=== PATIENT | male | born 1940 | race Caucasian/White ===

== ENCOUNTER 2017-06-10 14:59 | Observation (INO) ==
--- NOTE | 2017-06-10 15:28 | Emergency Department Note ---
Disposition Clinical Impression: Palpitations Chest pain Qualifiers: Chest pain type: unspecified Qualified Code(s): R07.9 - Chest pain, unspecified Disposition: Admitted As Inpatient Condition: Fair Time of Disposition: 16:42 Chest Pain HPI - General Chief Complaint: ED Arrhythmia/Palpitations Stated Complaint: fast HR Time Seen by Provider: 06/10/17 15:25 Source: patient Mode of arrival: ambulatory Limitations: no limitations Vital Signs Reviewed: Yes Nursing Notes Reviewed: Yes - History of Present Illness HPI Narrative: 77-year-old whose had chest pressure and episodes of feeling like he's going to pass out. This being on on for the last several days. Dates he had a rapid heartbeat earlier. Heart rate on arrival was 67. Pt complaint: chest pain Onset (ago): day(s) Duration: intermittent Onset: during rest Severity scale (1-10): 0 Quality: tightness Improves with: nothing Worsens with: nothing Treatments prior to arrival chest pain: none - Related Data Home Medications Medication Instructions Recorded Confirmed Aspirin Enteric Coated [Aspirin EC] 81 mg PO DAILY 03/19/16 06/10/17 Atorvastatin [Lipitor] 40 mg PO HS 03/19/16 06/10/17 Clopidogrel [Plavix] 75 mg PO DAILY 03/19/16 06/10/17 Insulin NPH Hum/Reg Insulin Hm 12 - 18 unit SQ BID 03/19/16 06/10/17 [Novolin 70-30 100 Unit/ml Vial] Isosorbide MONOnitrate [Isosorbide 120 mg PO DAILY 03/19/16 06/10/17 Mononitrate ER] Nitroglycerin [Nitrostat] 0.4 mg SL Q5M PRN 03/19/16 06/10/17 Tamsulosin [Flomax] 0.4 mg PO DAILY 03/19/16 06/10/17 Losartan Potassium [Cozaar] 50 mg PO DAILY 06/10/17 06/10/17 Metoprolol [Lopressor] 50 mg PO BID 06/10/17 06/10/17 Pantoprazole Sodium [Protonix] 40 mg PO DAILY 06/10/17 06/10/17 Previous Rx's Medication Instructions Recorded Ranolazine [Ranexa] 500 mg PO BID #60 tab.er.12h 03/20/16 Allergies Allergy/AdvReac Type Severity Reaction Status Date / Time lisinopril AdvReac Cough Verified 03/19/16 15:11 All systems ED: reviewed and negative except as stated. Constitutional: Denies: fever, chills, weakness, weight change Eyes: Denies: eye pain, eye discharge, vision change ENT ED: Denies: ear pain, throat pain, dental pain, hearing loss, epistaxis, congestion, dysphagia Cardiovascular: Reports: chest pain, palpitations. Denies: dyspnea on exertion , edema, syncope Respiratory: Denies: cough, dyspnea, wheezes, hemoptysis, stridor Gastrointestinal: Denies: abdominal pain, nausea, vomiting, diarrhea, constipation, hematemesis, melena, hematochezia Genitourinary: Denies: urgency, dysuria, frequency, hematuria Musculoskeletal: Denies: back pain, neck pain, arthralgia, myalgia Integumentary: Denies: rash, abrasion, lesions Neurological: Denies: headache, weakness, numbness, paresthesias, confusion, abnormal gait, vertigo Psychiatric: Denies: anxiety, depression, suicidal thoughts, homicidal thoughts , auditory hallucinations, visual hallucinations Endocrine: Denies: fatigue Hematological/Lymphatic: Denies: easy bleeding, easy bruising Allergic/Immunologic: Denies: facial swelling, urticaria Chest Pain PMH - Past Medical History Medical history: Reports: diabetes, hyperlipidemia, hypertension, myocardial infarction, other Surgical history: Reports: cataract Psychiatric history: Reports: no psych history - Social History Smoking Status: Never smoker Alcohol use: Reports: none Drug use: Reports: none Physical Exam - General Limitations: no limitations General appearance: alert, in no apparent distress - Head Head exam: atraumatic, normocephalic, normal inspection - Eye Eye exam: Present: normal appearance, PERRL, EOMI - ENT ENT exam: normal exam, normal oropharynx, mucous membranes moist - Neck Neck exam: Present: normal inspection, full ROM, trachea midline - Chest Chest inspection: Present: normal inspection, symmetric chest wall rise - Respiratory Respiratory exam: Present: normal lung sounds bilaterally - Cardiovascular Cardiovascular exam: Present: regular rate, normal rhythm, normal heart sounds - Abdominal Exam Abdominal exam: Present: soft, Non-Tender. Absent: tenderness, distention, guarding, rebound, rigidity - Extremities Exam Extremities exam: Present: normal inspection, full ROM. Absent: tenderness, pedal edema - Expanded Lower Extremity Exam Neurovascular/Tendon exam: Absent: motor deficit, sensory deficit, tendon deficit Gait: not tested/not observed - Back Exam Back exam: Present: normal inspection, full ROM. Absent: tenderness - Neurological Exam Neurological exam: Present: alert, oriented X3 - Psychiatric Psychiatric exam: Present: normal affect, normal mood - Skin Skin exam: Present: warm, dry, intact, normal color Course - Reevaluation(s) Reevaluation #1: 77-year-old with a history of previous bypass surgery comes in complaining of some episodes of the as he describes a rapid heartbeat near syncope saws family doctor who did discuss case with cardiology who felt patient should come in and be admitted. He may be having an arrhythmia causing his symptoms versus he does have known coronary artery disease. He currently is not having chest pain just feels very tired. Time: 16:40 Reevaluation #2: 77-year-old who developed worsening chest pain. A repeat EKG was obtained which is unchanged from EKG obtained earlier. No acute ST segment elevation. Time: 17:59 - Consultations Consultation #1: Discussed with Shawn Cesar, admit consult cardiology. Time: 16:54 Vital Signs Temperature 98.2 F 06/10/17 15:10 Pulse Rate 67 06/10/17 15:10 Respiratory Rate 18 06/10/17 15:10 Blood Pressure 180/70 06/10/17 15:10 O2 Sat by Pulse Oximetry 98 06/10/17 15:10 Temperature 97.8 F 06/10/17 22:35 Pulse Rate 70 06/10/17 22:35 Respiratory Rate 16 06/10/17 22:35 Blood Pressure 154/56 06/10/17 22:35 O2 Sat by Pulse Oximetry 96 06/10/17 22:35 Oxygen Delivery Oxygen Delivery Room Air Chest Pain - Lab Data Lab results reviewed: Yes I reviewed the patient's lab results. Result diagrams: 06/10/17 15:45 06/10/17 15:45 Lab Results 06/10/17 06/10/17 06/10/17 Range/Units 15:45 15:45 15:45 WBC 5.4 (4.3-11.1) K/mcL RBC 4.88 (4.19-5.50) M/mcL Hgb 15.4 (12.9-16.9) g/dL Hct 43.1 (37.5-50.1) % MCV 88.3 (83.0-100.0) fL MCH 31.6 (28.0-33.3) pg MCHC 35.7 H (31.6-35.5) g/dL RDW 11.8 (11.5-14.5) % Plt Count 224 (140-400) K/mcL MPV 8.5 L (9.4-12.4) fL Immature Gran % 0.4 (0-4) % Seg Neutrophils % 68.2 % Lymphocytes % 15.7 % Monocytes % 12.9 % Eosinophils % 2.4 % Basophils % 0.4 % Neutrophils # 3.7 (1.6-8.9) K/mcL Lymphocytes # 0.8 (0.6-4.6) K/mcL Monocytes # 0.7 (0.0-1.3) K/mcL Eosinophils # 0.1 (0.0-0.6) K/mcL Basophils # 0.0 (0.0-0.2) K/mcL Sodium 136 (136-145) mEq/L Potassium 4.4 (3.5-4.5) mEq/L Chloride 102 (98-109) mEq/L Carbon Dioxide 25 (19-29) mEq/L BUN 25 (8-26) mg/dL Creatinine 1.15 (0.72-1.25) mg/dL Est GFR ( Amer) > 60 (> 60) Est GFR (Non-Af Amer) > 60 (> 60) BUN/Creatinine Ratio 22 (6-26) Glucose 222 H (70-99) mg/dL Calculated Osmolality 293 (280-300) Calcium 9.2 (8.6-10.8) mg/dL Troponin I 0.01 (0-0.03) ng/mL - Radiology Data Radiology results reviewed: Yes I reviewed the patient's radiology results. Chest X-Ray 06/10/17 15:27 IMPRESSION: No radiographic evidence of acute cardiopulmonary disease. D/ / Renato Frazier MD / Renato Frazier MD Interpreting Provider: Renato Frazier MD - EKG Data EKG attestation: Yes I reviewed and interpreted this EKG. EKG shows normal: sinus rhythm Rate: normal Rhythm: NSR Interpretation: no acute changes, nonspecific ST-T wave changes Heart Score - Score History: Moderately Suspicious EKG: Non Specific repolarisation Disturbance Age: Greater than 65 Risk Factors: Equal/Greater than 3 risk factor or history of atherosclerotic disease Troponin: Less than normal limit HEART Score Total: 6
[2017-06-10 15:58] LABS: Basophils % 0.4 %; Eosinophils # 0.1 K/mcL (0.0-0.6); Eosinophils % 2.4 %; Hematocrit 43.1 % (37.5-50.1); Hemoglobin 15.4 g/dL (12.9-16.9); Immature Granulocytes % 0.4 % (0-4); Lymphocytes # 0.8 K/mcL (0.6-4.6); Lymphocytes % 15.7 %; Mean Corpuscular HGB Conc 35.7 g/dL (31.6-35.5); Mean Corpuscular Hemoglobin 31.6 pg (28.0-33.3); Mean Corpuscular Volume 88.3 fL (83.0-100.0); Mean Platelet Volume 8.5 fL (9.4-12.4); Monocytes # 0.7 K/mcL (0.0-1.3); Monocytes % 12.9 %; Neutrophils # 3.7 K/mcL (1.6-8.9); Platelet Count 224 K/mcL (140-400); Red Blood Count 4.88 M/mcL (4.19-5.50); Red Cell Distribution Width 11.8 % (11.5-14.5); Segmented Neutrophils % 68.2 %
[2017-06-10 16:12] LABS: BUN/Creatinine Ratio 22 (6-26); Blood Urea Nitrogen 25 mg/dL (8-26); Calcium 9.2 mg/dL (8.6-10.8); Carbon Dioxide 25 mEq/L (19-29); Chloride 102 mEq/L (98-109); Glucose 222 mg/dL (70-99); Osmolality,Calculated 293 (280-300); Potassium 4.4 mEq/L (3.5-4.5); Sodium 136 mEq/L (136-145); eGFR For African Americans > 60 (> 60); eGFR For Non-African Americans > 60 (> 60)
[2017-06-10] MEDS ORDERED: Ondansetron 4 MG/2 ML VIAL IVP PRN (20:01)
[2017-06-10] MEDS ORDERED: Naloxone 0.4 MG/ML INJ IVP PRN (20:01)
[2017-06-10] MEDS ORDERED: Nitroglycerin 0.4 MG TAB.SUBL SL PRN (20:05)
[2017-06-10] MEDS ORDERED: D5% in Water 1,000 ML IVC PRN (20:06)
[2017-06-10] MEDS ORDERED: *HR* Dextrose 50 % in Water (Syg) 50 ML SYRINGE IVP PRN (20:06)
[2017-06-10] MEDS ORDERED: Dextrose Gel 15 GM PO PRN ×2 (20:06)
[2017-06-10] MEDS: Ranolazine 500 MG TAB.ER.12H PO SCH (21:11)
[2017-06-10] MEDS: Acetaminophen 325 MG TABLET PO PRN (21:11)
[2017-06-10] MEDS: Insulin LISPRO 300 UNITS/3 ML VIAL SQ SCH (21:12)
[2017-06-10] MEDS: Insulin DETEMIR 100 UNIT/ML X5UNITS SQ SCH (21:13)
--- NOTE | 2017-06-10 22:24 | Internal Med History&Physical ---
Date of Encounter: 06/11/17 Time of Encounter: 22:24 Assessment and Plan (1) Chest pain Current visit: Yes Status: Acute Patient had episode of palpitations today as well as midsternal non-range has pressure which relieved on its own. He did feel as if he was going to pass out. He does have a past cardiac history including CABG and multiple PCI's with 3 stents. Last heart catheter was in 2015. He had a nuclear stress test which showed no ischemia. First cardiac troponin was 0.01 which we will continue to trend 2 continuous cardiac monitoring 3 continue with aspirin and statin Renexa beta marilyn and nitrates 4 we will consult cardiology 5 check d-dimer Qualifiers: Chest pain type: unspecified Qualified Code(s): R07.9 - Chest pain, unspecified (2) Diabetes mellitus Current visit: Yes Status: Acute Accu-Cheks before meals at bedtime with sliding scale insulin as well as basal Diabetic diet Qualifiers: Diabetes mellitus type: type 2 Diabetes mellitus complication status: without complication Diabetes mellitus mcfp insulin use: with mcfp use Qualified Code(s): E11.9 - Type 2 diabetes mellitus without complications ; Z79.4 - care home (current) use of insulin; Z79.4 - care home (current) use of insulin; 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 He did have a Holter monitor which revealed baseline rhythm of normal sinus occasional PVCs frequent PACs several short runs of PAT's. He did have a nuclear stress 2069 with no ischemia. We will obtain cardiac echo 2 continue with metoprolol at 50 mg twice a day 3 consult cardiology 4 continuous cardiac monitoring 5 we will check orthostatic vital signs 6 TSH 7 cortisol level in a.m. (4) CAD (coronary artery disease) Current visit: No Status: Chronic History of coronary artery disease CABG -multiple PCI's with most recent 2015. Nuclear stress 02/2017 for ischemia We will continue with cardiac monitoring 2 continue with aspirin statin and beta marilyn as well as Ranexa and nitrates Qualifiers: Coronary Disease-Associated Artery/Lesion type: bypass graft [place] vs. transplanted heart: [place] heart Associated angina: with stable angina Qualified Code(s): I25.708 - Atherosclerosis of coronary artery bypass graft(s) , unspecified, with other forms of angina pectoris (5) DVT prophylaxis Current visit: Yes Status: Acute Lovenox subcutaneous Internal Medicine - H&P: HPI Chief complaint: Palpitations lightheaded Admitted From: Emergency Dept Plans for Post Hospital Care: Home History of present illness: Mr. Musa is a 77 year old male past medical history of diabetes hyperlipidemia hypertension and CA with CABG multiple PCI's 3 stents most recent PCI 2015 TBI history subdural hematoma 2011. According to the patient since February he has been experiencing intermittent palpitations associated with mild tightness discomfort followed by profound fatigue. These episodes occur sporadically without any aggravating factors and occurred at rest or with exertion. The episodes normally lasts a couple of minutes and they have been occurring nearly daily. He did see his primary care physician who referred him to cardiology and he was placed on a 48 hour Holter monitor. At that time Holter monitor revealed baseline rhythm normal sinus frequent PACs occasional PVCs several short runs of PAT. He underwent nuclear stress 02/2017 which showed no ischemia. He saw cardiology on 05/31/2017 at that time his metoprolol was increased to 50 mg twice a day. Apparently today he had gotten out of the shower was attempting to shave it had episode of palpitations that he described as rapid heart rate felt as if his heart was going to beat out of his chest he became lightheaded and had midsternal nonradiating chest pressure and felt as if he was going to pass out. He saw his PCP today and described symptoms he experienced. His primary care physician discuss this episode with Dr. Ch cardiology who advised to go to the ER for evaluation. ER workup was essentially negative he was admitted for further workup and evaluation. Presently patient is hemodynamically stable he does complain of some occasional chest pressure he sinus rhythm on the monitor with occasional PAC. I reviewed this case with Dr. Acuna who agrees with plan Past Med Surg Social Fam HX - Past Medical History Medical history: diabetes, hyperlipidemia, hypertension, myocardial infarction Psychiatric history: no psych history - Past Surgical History Surgical History: cataract - Social History Smoking Status: Never smoker Smokeless Tobacco Status: No Alcohol use: none Drug use: none - Family History Father Living Status: Age at : 50 Cause of : CA Hx Family Cardiac Disorders: Yes Internal Medicine - H&P: Meds Aspirin Enteric Coated [Aspirin EC] 81 mg PO DAILY 03/19/16 [History] Atorvastatin [Lipitor] 40 mg PO HS 03/19/16 [History] Clopidogrel [Plavix] 75 mg PO DAILY 03/19/16 [History] Insulin NPH Hum/Reg Insulin Hm [Novolin 70-30 100 Unit/ml Vial] 12 - 18 unit SQ BID 03/19/16 [History] Isosorbide MONOnitrate [Isosorbide Mononitrate ER] 120 mg PO DAILY 03/19/16 [ History] Nitroglycerin [Nitrostat] 0.4 mg SL Q5M PRN 03/19/16 [History] Tamsulosin [Flomax] 0.4 mg PO DAILY 03/19/16 [History] Ranolazine [Ranexa] 500 mg PO BID #60 tab.er.12h 03/20/16 [Rx] Losartan Potassium [Cozaar] 50 mg PO DAILY 06/10/17 [History] Metoprolol [Lopressor] 50 mg PO BID 06/10/17 [History] Pantoprazole Sodium [Protonix] 40 mg PO DAILY 06/10/17 [History] 3 Allergy/AdvReac Type Severity Reaction Status Date / Time lisinopril AdvReac Cough Verified 03/19/16 15:11 All Systems PM: A 10-system review of systems was performed and is negative for pertinent findings except as documented above in the HPI. - Constitutional Constitutional: no chills, no fever(s), no night sweats - EENT Eyes: no change in vision, no discharge, no pain, no photophobia Nose, mouth and throat: no dysphagia, no nasal discharge, no neck pain, no sore throat - Cardiovascular Cardiovascular ROS IM: chest pain, lightheadedness, palpitations, no diaphoresis , no dyspnea, no syncope - Respiratory Respiratory: no cough, no dyspnea, no wheezing, no excessive phlegm production - Gastrointestinal Gastrointestinal: no abdominal pain, no diarrhea, no hematemesis, no hematochezia, no melena, no nausea, no vomiting - Musculoskeletal Musculoskeletal ROS IM: no numbness, no tingling - Integumentary Integumentary IM: no rash, no unusual bruising - Neurological Neurological ROS: no confusion, no convulsions, no focal weakness, no numbness, no tingling, no tremor(s) - Hematologic/Lymphatic Hematologic/Lymphatic: no easy bruising - Constitutional Vitals: Temp Pulse Resp BP Pulse Ox 97.8 F 70 16 180/91 97 06/10/17 19:11 06/10/17 19:11 06/10/17 19:11 06/10/17 19:11 06/10/17 22:07 General appearance: Present: A&O X 3, answers questions appropriately - Head Head exam: Present: atraumatic, normocephalic - Eye Eye exam: Present: PERRL, conjuntiva pink, sclera anicteric Pupils: Present: PERRL - Neck Neck exam general surgery: Present: supple, trachea midline. Absent: lymphadenopathy - Respiratory Respiratory exam: Present: CTAB. Absent: accessory muscle use, rales, rhonchi, wheezes - Cardiovascular Cardiovascular exam: Present: irregular rhythm, +S1, +S2. Absent: diastolic murmur, gallop, rubs, systolic murmur - GI/Abdominal GI/Abdominal exam: Present: normal bowel sounds, soft, no peritoneal signs. Absent: distended, tenderness - Extremities Exam Extremities exam: Present: warm, radial pulses palpable and symmetrical. Absent : calf tenderness, cyanotic, pedal edema - Neurological Exam Neurological exam: Present: CN II-XII intact, oriented X3, no focal deficits. Absent: pronater drift, facial droop, speech deficit - Skin Skin exam: Present: dry, intact Internal Med - H&P Results - Labs CBC & Chem 7: 06/10/17 15:45 06/10/17 15:45 Labs: Cardiac Enzymes 06/10/17 Range/Units 21:07 Troponin I 0.00 (0-0.03) ng/mL - EKG Data EKG shows normal: sinus rhythm - EKG Data Prior EKG available for review: yes When compared to previous EKG: there is no significant change - Diagnostic Studies Other Images Additional comments: Chest X-Ray 06/10/17 15:27 IMPRESSION: No radiographic evidence of acute cardiopulmonary disease. D/ / Renato Frazier MD / Renato Frazier MD Interpreting Provider: Renato Frazier MD
--- NOTE | 2017-06-11 01:15 | Event Note ---
Date of Encounter: 06/11/17 Time of Encounter: 01:10 Patient seen and exmained with nurse practitioner. Patient presents with pre- syncope which s not a new complain for him. Symptoms suggestive of arrhythmia versus orthostasis. He had Holter monitor before that did not show evidence to explain his symptoms. May benefit from getting a 30 day event monitor. will get d-dimer with the morning labs. Check orthostatic vital signs. Check cortisol level in a.m. Check echocardiogram as he has not had one recently. No obvious infectious etiology. Observation admission
[2017-06-11 03:43] LABS: Basophils % 0.5 %; Eosinophils # 0.2 K/mcL (0.0-0.6); Eosinophils % 3.4 %; Hemoglobin 14.1 g/dL (12.9-16.9); Immature Granulocytes % 0.3 % (0-4); Lymphocytes # 1.3 K/mcL (0.6-4.6); Lymphocytes % 20.2 %; Mean Corpuscular HGB Conc 35.3 g/dL (31.6-35.5); Mean Corpuscular Hemoglobin 30.9 pg (28.0-33.3); Mean Corpuscular Volume 87.7 fL (83.0-100.0); Mean Platelet Volume 8.9 fL (9.4-12.4); Monocytes # 0.8 K/mcL (0.0-1.3); Monocytes % 11.7 %; Platelet Count 192 K/mcL (140-400); Red Blood Count 4.56 M/mcL (4.19-5.50); Red Cell Distribution Width 11.8 % (11.5-14.5); Segmented Neutrophils % 63.9 %
[2017-06-11 03:50] LABS: Neutrophils # 4.2 K/mcL (1.6-8.9)
[2017-06-11 04:07] LABS: BUN/Creatinine Ratio 19 (6-26); Blood Urea Nitrogen 19 mg/dL (8-26); Calcium 8.4 mg/dL (8.6-10.8); Carbon Dioxide 23 mEq/L (19-29); Chloride 104 mEq/L (98-109); Glucose 149 mg/dL (70-99); Osmolality,Calculated 283 (280-300); Sodium 134 mEq/L (136-145); eGFR For African Americans > 60 (> 60); eGFR For Non-African Americans > 60 (> 60)
[2017-06-11] MEDS: Insulin LISPRO 300 UNITS/3 ML VIAL SQ SCH ×4 (07:42→21:31)
[2017-06-11] MEDS: Isosorbide MONOnitrate (24 HR) 60 MG TAB.ER.24H PO SCH (09:16)
[2017-06-11] MEDS: Ranolazine 500 MG TAB.ER.12H PO SCH ×2 (09:17→21:32)
[2017-06-11] MEDS: Aspirin Enteric Coated 81 MG Tablet PO SCH (09:17)
--- NOTE | 2017-06-11 11:20 | Cardiology Consult Note ---
Date of Encounter: 06/11/17 Time of Encounter: 10:29 Assessment and Plan (1) Palpitations Current Visit: Yes Status: Acute H/o palpitations, fatigue, and presyncope since January 2017. Symptoms increased after recent increase in metoprolol. Recent cardiac work-up included stress test 02/2017 was negative for ischemia. Holter showed NSR with PAC and PVC. Several short runs of PAT seen. Telemetry since admission shows NSR with frequent PAC. There was several short runs of PAT up to four beats long. No VT. No significant bradycardia or pauses seen. Avg HR 67 bpm. Troponin negative. Discussed with Dr. Turcios. Change metoprolol to cardizem CD 120 mg BID. Check TTE. (2) CAD (coronary artery disease) Current Visit: No Status: Chronic H/o CABG at [facility] in 2013. Last [facility] 2015- [facility] 02/2016- 30% stenosis in the LMCA. 100% stenosis in the Ostial /Proximal LAD. 40% in stent stenosis in the Proximal Circumflex. 50% stenosis in the Mid Circumflex. 40% stenosis in the Distal Circumflex. 50% stenosis in the Left PDA. 80% stenosis in the Proximal Ramus. 100% stenosis in the Mid/ Distal Ramus. 90% stenosis in the Proximal RCA. Small, diffusely diseased, nondominant vessel. Grafts: The left internal mammary graft to the Mid LAD is patent. The saphenous vein graft to the. 1st Marginal has a 50% instent restenosis in the mid portion- FFR 0.98 The saphenous vein graft to the 1st Marginal has a 50% stenosis in the proximal body- FFR 0.98 The saphenous vein graft to the 1st Marginal has a 20% instent restenosis in the distal body. Continue asa and statin. Changing beta-marilyn to CCB to decrease PAC. Qualifiers: Coronary Disease-Associated Artery/Lesion type: bypass graft [place] vs. transplanted heart: [place] heart Associated angina: with stable angina Qualified Code(s): I25.708 - Atherosclerosis of coronary artery bypass graft(s) , unspecified, with other forms of angina pectoris Discussion w patient/family: The assessment and plan as outlined above was discussed with the patient and/or family members who expressed understanding and agreement. All questions were answered. Thank you for involving us in the care of your patient. Please call with any questions. History of Present Illness Consult date: 06/11/17 Requesting physician: Aline Choi Consult reason: Palpitations, presyncope Chief complaint: Palpitations, pre-syncope History of present illness: Mr. uMsa is a 76-year-old male with PMH of CAD s/p CABG, HTN, dyslipidemia. Since the end of January he developed intermittent severe palpitations associated with mild chest discomfort followed by fatigue. Yesterday his symptoms increased. C/o palpitations for 3-4 min when he was getting ready for his day. He sat down on the side of his bathtub because he felt he was going to pass out. He was able to walk to his living room and sit down shortly after. He c/o feeling very fatigued. 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 Previous testin02/2017 stress test- negative for ischemia. 02/2017 Holter- Impression: 1. Baseline rhythm normal sinus. 2. Occasional PVCs. 3. Frequent PACs. 4. Several short runs PAT. 5. No symptoms noted. [facility] 02/2016- 30% stenosis in the LMCA. 100% stenosis in the Ostial/Proximal LAD. 40% in stent stenosis in the Proximal Circumflex. 50% stenosis in the Mid Circumflex. 40% stenosis in the Distal Circumflex. 50% stenosis in the Left PDA. 80% stenosis in the Proximal Ramus. 100% stenosis in the Mid/Distal Ramus. 90% stenosis in the Proximal RCA. Small, diffusely diseased, nondominant vessel. Grafts: The left internal mammary graft to the Mid LAD is patent. The saphenous vein graft to the. 1st Marginal has a 50% instent restenosis in the mid portion- FFR 0.98 The saphenous vein graft to the 1st Marginal has a 50% stenosis in the proximal body- FFR 0.98 The saphenous vein graft to the 1st Marginal has a 20% instent restenosis in the distal body. 2013 TTE- EF 60%. Past Med Surg Social Fam HX - Past Medical History Medical history: coronary artery disease, diabetes, hyperlipidemia, hypertension , myocardial infarction Psychiatric history: no psych history - Past Surgical History Surgical History: cataract, coronary bypass (CABG) - Social History Smoking Status: Never smoker Smokeless Tobacco Status: No Alcohol use: none Drug use: none - Family History Father Living Status: Age at : 50 Cause of : MS Hx Family Cardiac Disorders: Yes Medications and Allergies Aspirin Enteric Coated [Aspirin EC] 81 mg PO DAILY 03/19/16 [History] Atorvastatin [Lipitor] 40 mg PO HS 03/19/16 [History] Clopidogrel [Plavix] 75 mg PO DAILY 03/19/16 [History] Insulin NPH Hum/Reg Insulin Hm [Novolin 70-30 100 Unit/ml Vial] 12 - 18 unit SQ BID 03/19/16 [History] Isosorbide MONOnitrate [Isosorbide Mononitrate ER] 120 mg PO DAILY 03/19/16 [ History] Nitroglycerin [Nitrostat] 0.4 mg SL Q5M PRN 03/19/16 [History] Tamsulosin [Flomax] 0.4 mg PO DAILY 03/19/16 [History] Ranolazine [Ranexa] 500 mg PO BID #60 tab.er.12h 03/20/16 [Rx] Losartan Potassium [Cozaar] 50 mg PO DAILY 06/10/17 [History] Metoprolol [Lopressor] 50 mg PO BID 06/10/17 [History] Pantoprazole Sodium [Protonix] 40 mg PO DAILY 06/10/17 [History] 3 Allergy/AdvReac Type Severity Reaction Status Date / Time lisinopril AdvReac Cough Verified 03/19/16 15:11 All Systems Review: A 10-system review of systems was performed and is negative for pertinent findings except as documented above in the HPI. Physical Examination Vital Signs, Last 4 Hours Temp Pulse Resp BP Pulse Ox 06/11/17 07:04 97.7 F 65 16 164/65 95 General: Conversant, No Apparent Distress HEENT: Atraumatic, Normocephaly, Mucus Membranes Moist Neck: No JVD, Normal carotid pulses Cardiac: Reg Rate and Rhythm, Normal S1 and S2, No Murmur, Other (Mildly irregular. SR with frequent PAC. ) Lungs: Normal Breath Sounds, No Wheeze, Rales, Rhonchi Neuro: Alert and responsive, No focal deficits noted Abdomen: Soft, Non-Tender Skin: No rashes noted on visualized skin Musculoskeletal: No Chest Wall Tenderness Extremities: No Clubbing, No Cyanosis, No Edema, Normal Pulses Results 06/11/17 03:22 06/11/17 03:22 Lab Results 06/10/17 06/11/17 06/11/17 21:07 03:22 03:22 WBC 6.5 Hgb 14.1 Hct 40.0 Plt Count 192 D-Dimer Sodium Potassium Chloride Carbon Dioxide BUN Creatinine Glucose Calcium Troponin I 0.00 0.01 TSH 06/11/17 06/11/17 06/11/17 03:22 03:22 03:22 WBC Hgb Hct Plt Count D-Dimer 432 Sodium 134 L Potassium 4.0 Chloride 104 Carbon Dioxide 23 BUN 19 Creatinine 1.01 Glucose 149 H Calcium 8.4 L Troponin I TSH 2.766 - Imaging and Cardiology Stress Test: report reviewed Echo: report reviewed Cardiac cath: report reviewed Holter: report reviewed - EKG Interpretation EKG results cardiology: personally reviewed (SR with no acute ST changes.) Consult Discharge Plan - Plan Referrals: Teetee Cisneros, GERMAN PROFESSOR [Primary Care Provider] -
--- NOTE | 2017-06-11 12:25 | Electrocardiograph Report ---
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
--- NOTE | 2017-06-11 12:28 | Electrocardiograph Report ---
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
--- NOTE | 2017-06-11 16:04 | Internal Med Progress Note ---
Date of Encounter: 06/11/17 Time of Encounter: 16:01 - Assessment and plan (1) CAD (coronary artery disease) Current Visit: No Status: Chronic Assessment and plan: Mark Musa is a 77 year old male with past medical history CAD and diabetes who presented to [facility] on 06/10/2017 with complaints of lightheadedness and palpitations. He was placed in observation status for further workup and treatment and cardiac evaluation. 1. Near syncope: Patient reports episodes of dizziness and feeling as if he is going to pass out for approximately 1 month prior to presentation. 05/09/2017 outpatient brain MRI non-acute. TTE with normal EF. Possibly secondary to underlying a-fib, medication related (BB recently increased with worsening in symptoms). Cont to monitor on tele. Check orthos, carotid dopplers. 2. Palpitations: intermittent for 1 month prior to presentation. Recent outpatient Holter monitor showed NSR with PACs and PVCs and several short runs of PAT. Evaluated by cardiology who changed BB to CCB. Continue to monitor on telemetry. 3. CAD: Per history. Asymptomatic, denies chest pain. Continue home ASA, statin, Plavix, nitrate, Ranexa. 4. Diabetes: per hx. Blood sugars controlled. Continue SSI. Monitor blood sugar and titrate PRN 5. DVT prophylaxis: heparin Qualifiers: Coronary Disease-Associated Artery/Lesion type: bypass graft [place] vs. transplanted heart: [place] heart Associated angina: with stable angina Qualified Code(s): I25.708 - Atherosclerosis of coronary artery bypass graft(s) , unspecified, with other forms of angina pectoris (2) Palpitations Current Visit: Yes Status: Acute (3) Diabetes mellitus Current Visit: Yes Status: Acute Qualifiers: Diabetes mellitus type: type 2 Diabetes mellitus complication status: without complication Diabetes mellitus terminal carman insulin use: with [facility] use Qualified Code(s): E11.9 - Type 2 diabetes mellitus without complications ; Z79.4 - terminal supervisor (current) use of insulin; Z79.4 - terminal supervisor (current) use of insulin; Z79.4 - terminal supervisor (current) use of insulin; Z79.4 - terminal supervisor ( current) use of insulin (4) DVT prophylaxis Current Visit: Yes Status: Acute - Subjective Interval history: Seen and examined at bedside. Patient is new to me, information obtained from chart review and patient report. Patient says he had an uneventful night. No recurrence of palpitations or lightheadedness, dizziness. Denies chest pain. No shortness of breath. Discussed echo results with patient. - Constitutional Vitals: Temp Pulse Resp BP Pulse Ox 97.9 F 71 15 118/55 97 06/11/17 15:36 06/11/17 15:36 06/11/17 15:36 06/11/17 15:36 06/11/17 15:36 General appearance: Present: A&O X 3, answers questions appropriately - Head Head exam: Present: atraumatic, normocephalic - Eye Eye exam: Present: PERRL, conjuntiva pink, sclera anicteric Pupils: Present: PERRL - Neck Neck exam general surgery: Present: supple, trachea midline. Absent: lymphadenopathy - Respiratory Respiratory exam: Present: CTAB. Absent: accessory muscle use, rales, rhonchi, wheezes - Cardiovascular Cardiovascular exam: Present: RRR, +S1, +S2. Absent: diastolic murmur, gallop, rubs, systolic murmur - GI/Abdominal GI/Abdominal exam: Present: normal bowel sounds, soft, no peritoneal signs. Absent: distended, tenderness - Extremities Exam Extremities exam: Present: warm, radial pulses palpable and symmetrical. Absent : calf tenderness, cyanotic, pedal edema - Neurological Exam Neurological exam: Present: CN II-XII intact, oriented X3, no focal deficits. Absent: pronater drift, facial droop, speech deficit - Skin Skin exam: Present: dry, intact Internal Medicine: Result - Labs CBC & Chem 7: 06/11/17 03:22 06/11/17 03:22 Labs: Short CBC 06/11/17 Range/Units 03:22 WBC 6.5 (4.3-11.1) K/mcL Hgb 14.1 (12.9-16.9) g/dL Hct 40.0 (37.5-50.1) % Plt Count 192 (140-400) K/mcL Neutrophils # 4.2 (1.6-8.9) K/mcL BMP 06/11/17 03:22 Sodium 134 L Potassium 4.0 Chloride 104 Carbon Dioxide 23 BUN 19 Creatinine 1.01 Glucose 149 H Calcium 8.4 L Cardiac Enzymes 10/16/17 10/17/17 Range/Units 21:07 03:22 Troponin I 0.00 0.01 (0-0.03) ng/mL - ABG Interpretation ABG results: PT/INR, D-dimer D-Dimer 432 ng/mLFEU (0-500) 06/11/17 03:22 - Impressions Impressions Echocardiogram 06/11/17 22:23 Impressions: LVEF 60-65%. Normal LV chamber size, wall thickness and function. Atypical septal motion consistent with post-operative status. Mild left ventricular diastolic dysfunction. Normal right ventricular structure and function. Unable to estimate RVSP due to lack of TR jet. No significant valvular dysfunction. Left Ventricular Wall Motion: Rest Echo Findings All wall segments showed normal motion. Findings: Study Quality * Technically adequate exam. ECG Findings * Normal sinus rhythm. Left Ventricle * LVEF 60-65%. * Normal LV chamber size, wall thickness and function. * Atypical septal motion consistent with post-operative status. * Mild left ventricular diastolic dysfunction. Right Ventricle * Normal right ventricular structure and function. Left Atrium * Mildly dilated left atrium. Right Atrium * Normal right atrial size. Interatrial Septum * Interatrial septum not well evaluated. Aortic Valve * Trileaflet aortic valve. * Mildly calcified aortic valve leaflets. * Trace aortic regurgitation. * No aortic stenosis. Mitral Valve * Mild mitral annular calcification. * Trace mitral regurgitation. * No mitral stenosis. Tricuspid Valve * Normal tricuspid valve structure and function. * No tricuspid regurgitation. * Unable to estimate RVSP due to lack of TR jet. Pulmonic Valve * Pulmonic valve is not well visualized. * No pulmonic regurgitation. Aorta * Normally sized aortic root. Pericardium * The pericardium appears normal. IVC * Normal IVC dimensions and inspiratory collapse. Pulmonary Artery * Normal visualized portions of the main pulmonary artery. Consult Discharge Plan - Plan Referrals: Teetee Cisneros, CLINICAL PRACTICE CONSULTANT [Primary Care Provider] -
[2017-06-11] MEDS: Acetaminophen 325 MG TABLET PO PRN (16:23)
[2017-06-11] MEDS: Insulin DETEMIR 100 UNIT/ML X5UNITS SQ SCH (21:31)
[2017-06-11] MEDS: Diltiazem CD (24hr) 120 MG CAPSULE PO SCH (21:32)
[2017-06-12 05:27] LABS: Hematocrit 40.8 % (37.5-50.1); Hemoglobin 14.6 g/dL (12.9-16.9); Mean Corpuscular HGB Conc 35.8 g/dL (31.6-35.5); Mean Corpuscular Volume 86.6 fL (83.0-100.0); Mean Platelet Volume 8.6 fL (9.4-12.4); Platelet Count 230 K/mcL (140-400); Red Blood Count 4.71 M/mcL (4.19-5.50); Red Cell Distribution Width 11.6 % (11.5-14.5)
[2017-06-12 05:39] LABS: Alanine Aminotransferase 14 Units/L (0-55); Albumin 3.2 g/dL (3.5-5.0); Alkaline Phosphatase 68 Units/L (38-126); Aspartate Amino Transferase 11 Units/L (5-34); BUN/Creatinine Ratio 18 (6-26); Bilirubin,Total 0.4 mg/dL (0.2-1.2); Blood Urea Nitrogen 18 mg/dL (8-26); Calcium 8.6 mg/dL (8.6-10.8); Carbon Dioxide 26 mEq/L (19-29); Chloride 102 mEq/L (98-109); Glucose 165 mg/dL (70-99); Osmolality,Calculated 284 (280-300); Sodium 134 mEq/L (136-145); Total Protein 6.1 g/dL (6.0-8.3); eGFR For African Americans > 60 (> 60); eGFR For Non-African Americans > 60 (> 60)
[2017-06-12 05:40] LABS: Albumin/Globulin Ratio 1.1 (1.1-2.2); Globulin 2.9 g/dL (2.4-3.5)
[2017-06-12] MEDS: Isosorbide MONOnitrate (24 HR) 60 MG TAB.ER.24H PO SCH (07:29)
[2017-06-12] MEDS: Ranolazine 500 MG TAB.ER.12H PO SCH ×2 (07:30→21:55)
[2017-06-12] MEDS: Diltiazem CD (24hr) 120 MG CAPSULE PO SCH (07:30)
[2017-06-12] MEDS: Aspirin Enteric Coated 81 MG Tablet PO SCH (07:30)
[2017-06-12] MEDS: Insulin LISPRO 300 UNITS/3 ML VIAL SQ SCH ×4 (07:31→21:56)
--- NOTE | 2017-06-12 09:48 | Cardiology Progress Note ---
Date of Encounter: 06/12/17 Time of Encounter: 09:45 Assessment and Plan (1) Palpitations Current Visit: Yes Status: Acute H/o palpitations, fatigue, and presyncope since January 2017. Symptoms increased after recent increase in metoprolol. Recent cardiac work-up included stress test 02/2017 was negative for ischemia. Holter showed NSR with PAC and PVC. Several short runs of PAT seen. Troponin negative. EKG showed NSR . Metoprolol discontinued yesterday and changed to cardizem CD 120 mg BID for palpitations and PAC. TTE shows EF60-65%. No significant valvular disease. C/o mild symptoms one hour prior to my assessment . Telemetry review shows small run of bigemeny around that time. Otherwise shows NSR with PAC. No runs of tachycardia seen. Recommend ambulating in the hallway this morning can be discharged home with out-pt cardiology f/u. Patient agrees with plan. (2) CAD (coronary artery disease) Current Visit: No Status: Chronic H/o CABG at [facility] in 2013. Last [facility] 2015- [facility] 02/2016- 30% stenosis in the LMCA. 100% stenosis in the Ostial /Proximal LAD. 40% in stent stenosis in the Proximal Circumflex. 50% stenosis in the Mid Circumflex. 40% stenosis in the Distal Circumflex. 50% stenosis in the Left PDA. 80% stenosis in the Proximal Ramus. 100% stenosis in the Mid/ Distal Ramus. 90% stenosis in the Proximal RCA. Small, diffusely diseased, nondominant vessel. Grafts: The left internal mammary graft to the Mid LAD is patent. The saphenous vein graft to the. 1st Marginal has a 50% instent restenosis in the mid portion- FFR 0.98 The saphenous vein graft to the 1st Marginal has a 50% stenosis in the proximal body- FFR 0.98 The saphenous vein graft to the 1st Marginal has a 20% instent restenosis in the distal body. Continue asa and statin. Changing beta-marilyn to CCB to decrease PAC/PVC. Qualifiers: Coronary Disease-Associated Artery/Lesion type: bypass graft [place] vs. transplanted heart: [place] heart Associated angina: with stable angina Qualified Code(s): I25.708 - Atherosclerosis of coronary artery bypass graft(s) , unspecified, with other forms of angina pectoris Discussion w patient/family: The assessment and plan as outlined above was discussed with the patient and/or family members who expressed understanding and agreement. All questions were answered. Thank you for involving us in the care of your patient. Please call with any questions. Subjective Principal diagnosis: Palpitations, pre-syncope Interval history: Mr. Musa reports one episode of palpitations and dizziness this morning while laying in bed. Symptoms only last a few seconds. Otherwise he did well overnight. Objective Vital Signs, Last 4 Hours Temp Pulse Resp BP Pulse Ox 06/12/17 06:37 98.2 F 76 19 149/65 94 General: Conversant, No Apparent Distress HEENT: Atraumatic, Normocephaly, Mucus Membranes Moist Neck: No JVD, Normal carotid pulses Cardiac: Reg Rate and Rhythm, Normal S1 and S2, No Murmur Lungs: Normal Breath Sounds, No Wheeze, Rales, Rhonchi Neuro: Alert and responsive, No focal deficits noted Abdomen: Soft, Non-Tender Skin: No rashes noted on visualized skin Musculoskeletal: No Chest Wall Tenderness Extremities: No Clubbing, No Cyanosis, No Edema, Normal Pulses Results 06/12/17 05:15 06/12/17 05:15 Lab Results 06/12/17 06/12/17 05:15 05:15 WBC 6.8 Hgb 14.6 Hct 40.8 Plt Count 230 Sodium 134 L Potassium 4.0 Chloride 102 Carbon Dioxide 26 BUN 18 Creatinine 1.02 Glucose 165 H Calcium 8.6 Total Bilirubin 0.4 AST 11 ALT 14 Alkaline Phosphatase 68 - Imaging and Cardiology Echo: report reviewed - EKG Interpretation EKG results cardiology: personally reviewed Consult Discharge Plan - Plan Referrals: Teetee Cisneros FURNITURE FINISHER HELPER [Primary Care Provider] -
[2017-06-12] MEDS ORDERED: 0.9 % Sodium Chloride 500 ML IVC ONE (11:02)
[2017-06-12] MEDS ORDERED: 0.9 % Sodium Chloride 1,000 ML IVC SCH (11:15)
--- NOTE | 2017-06-12 11:29 | Event Note ---
Date of Encounter: 06/12/17 Time of Encounter: 11:25 - Cardiology Event Note Patient ambulated with me in the hallway around the nursing unit. C/o increasing dizziness. B/p after returning to his room found to be 82/42. No recurrent bigemeny seen. Instructed RN to start IV fluid. Will give one liter of fluid. Discussed with Dr. Turcios. Will d/c losartan to allow for addition of cardizem. We will continue to monitor with you.
--- NOTE | 2017-06-12 16:16 | Internal Med Progress Note ---
Date of Encounter: 06/12/17 Time of Encounter: 16:03 - Assessment and plan (1) CAD (coronary artery disease) Current Visit: No Status: Chronic Assessment and plan: Mark Musa is a 77 year old male with past medical history CAD and diabetes who presented to [facility] on 06/10/2017 with complaints of lightheadedness and palpitations. He was placed in observation status for further workup and treatment and cardiac evaluation. 1. Near syncope: Patient reports episodes of dizziness and feeling as if he is going to pass out for approximately 1 month prior to presentation. 05/09/2017 outpatient brain MRI non-acute. TTE with normal EF. Possibly secondary to underlying a-fib, medication related (BB recently increased with worsening in symptoms). Had an episode of hypotension with SBP is in 80s during ambulation on 06/12. Cont to monitor on tele. Check orthos, carotid dopplers. 2. Palpitations: intermittent for 1 month prior to presentation. Recent outpatient Holter monitor showed NSR with PACs and PVCs and several short runs of PAT. Evaluated by cardiology who changed BB to CCB with the dose increase on 8. Continue to monitor on telemetry overnight. We will need 48 hour Holter monitor before discharge tomorrow. 3. Hypertension: per hx. BP variable. Episode of hypotension with SBP is in 80s. Home losartan., Give IV bolus followed by MIV. Monitor BP and titrate PRN 3. CAD: Per history. Asymptomatic, denies chest pain. Continue home ASA, statin, Plavix, nitrate, Ranexa. 4. Diabetes: per hx. Blood sugars controlled. Continue SSI. Monitor blood sugar and titrate PRN 5. DVT prophylaxis: heparin Qualifiers: Coronary Disease-Associated Artery/Lesion type: bypass graft [place] vs. transplanted heart: [place] heart Associated angina: with stable angina Qualified Code(s): I25.708 - Atherosclerosis of coronary artery bypass graft(s) , unspecified, with other forms of angina pectoris (2) Palpitations Current Visit: Yes Status: Acute (3) Diabetes mellitus Current Visit: Yes Status: Acute Qualifiers: Diabetes mellitus type: type 2 Diabetes mellitus complication status: without complication Diabetes mellitus terminal block assembler insulin use: with intermediate use Qualified Code(s): E11.9 - Type 2 diabetes mellitus without complications ; Z79.4 - intermediate school teacher (current) use of insulin; Z79.4 - USP (current) use of insulin; Z79.4 - intermediate school teacher (current) use of insulin; Z79.4 - intermediate school teacher ( current) use of insulin (4) DVT prophylaxis Current Visit: Yes Status: Acute - Subjective Interval history: Seen and examined at bedside. Says he feels better now he is back in bed. 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 Upon returning to his her was found to be hypotensive with SBP is in the 80s. No chest pain, no SOB on my exam. - Constitutional Vitals: Temp Pulse Resp BP Pulse Ox 97.6 F 72 18 122/58 95 06/12/17 14:41 06/12/17 14:41 06/12/17 14:41 06/12/17 14:41 06/12/17 14:41 General appearance: Present: A&O X 3, answers questions appropriately - Head Head exam: Present: atraumatic, normocephalic - Eye Eye exam: Present: PERRL, conjuntiva pink, sclera anicteric Pupils: Present: PERRL - Neck Neck exam general surgery: Present: supple, trachea midline. Absent: lymphadenopathy - Respiratory Respiratory exam: Present: CTAB. Absent: accessory muscle use, rales, rhonchi, wheezes - Cardiovascular Cardiovascular exam: Present: RRR, +S1, +S2. Absent: diastolic murmur, gallop, rubs, systolic murmur - GI/Abdominal GI/Abdominal exam: Present: normal bowel sounds, soft, no peritoneal signs. Absent: distended, tenderness - Extremities Exam Extremities exam: Present: warm, radial pulses palpable and symmetrical. Absent : calf tenderness, cyanotic, pedal edema - Neurological Exam Neurological exam: Present: CN II-XII intact, oriented X3, no focal deficits. Absent: pronater drift, facial droop, speech deficit - Skin Skin exam: Present: dry, intact Internal Medicine: Result - Labs CBC & Chem 7: 06/12/17 05:15 06/12/17 05:15 Labs: Short CBC 06/12/17 Range/Units 05:15 WBC 6.8 (4.3-11.1) K/mcL Hgb 14.6 (12.9-16.9) g/dL Hct 40.8 (37.5-50.1) % Plt Count 230 (140-400) K/mcL BMP 06/12/17 05:15 Sodium 134 L Potassium 4.0 Chloride 102 Carbon Dioxide 26 BUN 18 Creatinine 1.02 Glucose 165 H Calcium 8.6 Liver Function 06/12/17 Range/Units 05:15 Total Bilirubin 0.4 (0.2-1.2) mg/dL AST 11 (5-34) Units/L ALT 14 (0-55) Units/L Alkaline Phosphatase 68 (38-126) Units/L Albumin 3.2 L (3.5-5.0) g/dL - ABG Interpretation ABG results: PT/INR, D-dimer D-Dimer 432 ng/mLFEU (0-500) 06/11/17 03:22 Consult Discharge Plan - Plan Referrals: Teetee Cisneros, [employer] [Primary Care Provider] -
[2017-06-12] MEDS: Insulin DETEMIR 100 UNIT/ML X5UNITS SQ SCH (21:54)
[2017-06-12] MEDS: Diltiazem CD (24hr) 180 MG CAPSULE PO SCH (21:55)
[2017-06-13 06:03] LABS: Hematocrit 42.1 % (37.5-50.1); Hemoglobin 14.8 g/dL (12.9-16.9); Mean Corpuscular HGB Conc 35.2 g/dL (31.6-35.5); Mean Corpuscular Hemoglobin 30.8 pg (28.0-33.3); Mean Corpuscular Volume 87.7 fL (83.0-100.0); Mean Platelet Volume 8.6 fL (9.4-12.4); Platelet Count 220 K/mcL (140-400); Red Cell Distribution Width 11.8 % (11.5-14.5)
[2017-06-13 06:23] LABS: Alanine Aminotransferase 12 Units/L (0-55); Albumin 3.3 g/dL (3.5-5.0); Albumin/Globulin Ratio 1.2 (1.1-2.2); Alkaline Phosphatase 65 Units/L (38-126); Aspartate Amino Transferase 12 Units/L (5-34); BUN/Creatinine Ratio 13 (6-26); Bilirubin,Total 0.5 mg/dL (0.2-1.2); Blood Urea Nitrogen 12 mg/dL (8-26); Calcium 8.7 mg/dL (8.6-10.8); Carbon Dioxide 26 mEq/L (19-29); Chloride 106 mEq/L (98-109); Globulin 2.8 g/dL (2.4-3.5); Glucose 128 mg/dL (70-99); Osmolality,Calculated 287 (280-300); Potassium 3.9 mEq/L (3.5-4.5); Sodium 138 mEq/L (136-145); Total Protein 6.1 g/dL (6.0-8.3); eGFR For African Americans > 60 (> 60); eGFR For Non-African Americans > 60 (> 60)
[2017-06-13] MEDS: Diltiazem CD (24hr) 180 MG CAPSULE PO SCH (08:49)
[2017-06-13] MEDS: Aspirin Enteric Coated 81 MG Tablet PO SCH (08:49)
[2017-06-13] MEDS: Isosorbide MONOnitrate (24 HR) 60 MG TAB.ER.24H PO SCH (08:50)
[2017-06-13] MEDS: Insulin LISPRO 300 UNITS/3 ML VIAL SQ SCH (08:50)
[2017-06-13] MEDS: Ranolazine 500 MG TAB.ER.12H PO SCH (08:50)
--- NOTE | 2017-06-13 10:31 | Cardiology Progress Note ---
Date of Encounter: 06/13/17 Time of Encounter: 09:15 Assessment and Plan (1) Palpitations Current Visit: Yes Status: Acute H/o palpitations, fatigue, and presyncope since January 2017. Symptoms increased after recent increase in metoprolol. Recent cardiac work-up included stress test 02/2017 was negative for ischemia. Holter showed NSR with PAC and PVC. Several short runs of PAT seen. Troponin negative. EKG showed NSR . TTE shows EF60-65%. No significant valvular disease. 12 hour telemetry review shows only 6 second period of bigemeny. Otherwise Avg HR 67 bpm, NSR occasional PAC and PVC. Metoprolol discontinued and changed to cardizem CD 120 mg BID for palpitations and PAC. Developed hypotension and dizziness with walking. Losartan discontinued and patient given IV fluid. Reports symptoms improved. ambulated with me in the hallway. No dizziness. B/p158/60. Ok for discharge home from cardiology standpoint. No need for out patient holter that was previously ordered. (2) CAD (coronary artery disease) Current Visit: No Status: Chronic H/o CABG at [facility] in 2013. Last [facility] 2015- [facility] 02/2016- 30% stenosis in the LMCA. 100% stenosis in the Ostial /Proximal LAD. 40% in stent stenosis in the Proximal Circumflex. 50% stenosis in the Mid Circumflex. 40% stenosis in the Distal Circumflex. 50% stenosis in the Left PDA. 80% stenosis in the Proximal Ramus. 100% stenosis in the Mid/ Distal Ramus. 90% stenosis in the Proximal RCA. Small, diffusely diseased, nondominant vessel. Grafts: The left internal mammary graft to the Mid LAD is patent. The saphenous vein graft to the. 1st Marginal has a 50% instent restenosis in the mid portion- FFR 0.98 The saphenous vein graft to the 1st Marginal has a 50% stenosis in the proximal body- FFR 0.98 The saphenous vein graft to the 1st Marginal has a 20% instent restenosis in the distal body. Continue asa and statin. Changing beta-marilyn to CCB to decrease PAC/PVC. Qualifiers: Coronary Disease-Associated Artery/Lesion type: bypass graft [place] vs. transplanted heart: [place] heart Associated angina: with stable angina Qualified Code(s): I25.708 - Atherosclerosis of coronary artery bypass graft(s) , unspecified, with other forms of angina pectoris Discussion w patient/family: The assessment and plan as outlined above was discussed with the patient and/or family members who expressed understanding and agreement. All questions were answered. Thank you for involving us in the care of your patient. Please call with any questions. Subjective Principal diagnosis: Palpitations, pre-syncope Interval history: Mr. Musa denies recurrent dizziness. Ambulated in hallway with no difficulty. Objective Vital Signs, Last 4 Hours Temp Pulse Pulse Pulse Pulse Resp BP 06/13/17 09:13 74 76 85 06/13/17 08:09 98.0 F 81 18 129/63 BP BP BP Pulse Ox 06/13/17 09:13 132/71 126/66 122/62 06/13/17 08:09 95 General: Conversant, No Apparent Distress HEENT: Atraumatic, Normocephaly, Mucus Membranes Moist Neck: No JVD, Normal carotid pulses Cardiac: Reg Rate and Rhythm, Normal S1 and S2, No Murmur Lungs: Normal Breath Sounds, No Wheeze, Rales, Rhonchi Neuro: Alert and responsive, No focal deficits noted Abdomen: Soft, Non-Tender Skin: No rashes noted on visualized skin Musculoskeletal: No Chest Wall Tenderness Extremities: No Clubbing, No Cyanosis, No Edema, Normal Pulses Results 06/13/17 05:30 06/13/17 05:30 Lab Results 06/13/17 06/13/17 05:30 05:30 WBC 7.0 Hgb 14.8 Hct 42.1 Plt Count 220 Sodium 138 Potassium 3.9 Chloride 106 Carbon Dioxide 26 BUN 12 Creatinine 0.94 Glucose 128 H Calcium 8.7 Total Bilirubin 0.5 AST 12 ALT 12 Alkaline Phosphatase 65 - Imaging and Cardiology Echo: report reviewed - EKG Interpretation EKG results cardiology: personally reviewed Consult Discharge Plan - Plan Referrals: Teetee Cisneros, RAGS LABORER [Primary Care Provider] -
[2017-06-13 11:22] VITALS: BP 100/57
--- NOTE | 2017-06-13 11:31 | Discharge Summary ---
Date of Encounter: 06/13/17 Time of Encounter: 11:45 - Discharge Diagnosis (1) CAD (coronary artery disease) Priority: Primary Status: Chronic Comments: Mark Musa is a 77 year old male with past medical history CAD and diabetes who presented to [facility] on 06/10/2017 with complaints of lightheadedness and palpitations. He was placed in observation status for further workup and treatment and cardiac evaluation. His sx's improved with stopping BB, ARB and adding CCB 1. Near syncope: Patient reports episodes of dizziness and feeling as if he is going to pass out for approximately 1 month prior to presentation. 05/09/2017 outpatient brain MRI non-acute. TTE with normal EF. Ortho BPs unremarkable, bilateral carotids normal. Possibly medication related (BB recently increased with worsening in symptoms). Sx's resolved at time of discharge. Can follow-up with PCP 2. Palpitations: with associated fatigue and presyncope since January 2017. Symptoms increased after recent increase in metoprolol. Recent cardiac work-up included stress test 02/2017 was negative for ischemia. Holter showed NSR with PAC and PVC. Several short runs of PAT. Troponin negative. EKG showed NSR .TTE shows EF60-65%. No significant valvular disease. Evaluated by Cardiology who stopped metoprolol and started cardizem for palpitations and PAC. No need for out-patient holter that was previously ordered per Cardiology. Can follow-up with Cardiology outpatient 3. Hypertension: per hx. BP variable. Episode of hypotension with SBP in 80s with ambulation. BP improved with stopping losartan and IV fluids. Cont CCB, stop ARB. Recommend follow-up with PCP in one week for BP recheck 3. CAD: Per history. Asymptomatic, denies chest pain. Continue home ASA, statin, Plavix, nitrate, Ranexa. 4. Diabetes: per hx. Blood sugars controlled. Continue home medication regimen Qualifiers: Coronary Disease-Associated Artery/Lesion type: bypass graft [place] vs. transplanted heart: [place] heart Associated angina: with stable angina Qualified Code(s): I25.708 - Atherosclerosis of coronary artery bypass graft(s) , unspecified, with other forms of angina pectoris (2) Palpitations Priority: Primary Status: Acute (3) Diabetes mellitus Priority: Primary Status: Acute Qualifiers: Diabetes mellitus type: type 2 Diabetes mellitus complication status: without complication Diabetes mellitus nursing home insulin use: with terminal clerk use Qualified Code(s): E11.9 - Type 2 diabetes mellitus without complications ; Z79.4 - long term acute care registered nurse (current) use of insulin; Z79.4 - assisted (current) use of insulin; Z79.4 - assisted (current) use of insulin; Z79.4 - long term acute care registered nurse ( current) use of insulin - Discharge Medications Prescriptions: Diltiazem CD (24hr) [Cardizem CD] 180 mg PO BID #30 cap.er.24h Home Medications: Aspirin Enteric Coated [Aspirin EC] 81 mg PO DAILY 03/19/16 [History] Atorvastatin [Lipitor] 40 mg PO HS 03/19/16 [History] Clopidogrel [Plavix] 75 mg PO DAILY 03/19/16 [History] Insulin NPH Hum/Reg Insulin Hm [Novolin 70-30 100 Unit/ml Vial] 12 - 18 unit SQ BID 03/19/16 [History] Isosorbide MONOnitrate [Isosorbide Mononitrate ER] 120 mg PO DAILY 03/19/16 [ History] Nitroglycerin [Nitrostat] 0.4 mg SL Q5M PRN 03/19/16 [History] Tamsulosin [Flomax] 0.4 mg PO DAILY 03/19/16 [History] Ranolazine [Ranexa] 500 mg PO BID #60 tab.er.12h 03/20/16 [Rx] Pantoprazole Sodium [Protonix] 40 mg PO DAILY 06/10/17 [History] Diltiazem CD (24hr) [Cardizem CD] 180 mg PO BID #30 cap.er.24h 06/13/17 [Rx] Allergies/Adverse Reactions: 3 Allergy/AdvReac Type Severity Reaction Status Date / Time lisinopril AdvReac Cough Verified 03/19/16 15:11 Procedures/tests Complete & Pending: Procedures Performed prior 72 hours Category Date Time Status ECG 12 lead ECG [ECG] Stat Y 06/10/17 17:48 Completed ECG 48 holter monitor setup [ECG] Routine Y 06/12/17 10:47 Stop Req EV carotid duplex imaging BI Routine Y 06/11/17 16:03 Completed EV echocardiogram Routine Y 06/11/17 22:23 Completed Date of admission: 06/10/17 17:07 Primary care physician: Teetee Cisneros CNP Discharging clinician: Sharyn Carreon Anticipated date of discharge: 06/13/17 - Patient Status Disposition: Home, Self-Care Condition: Good Functional capacity at discharge: independent ambulation Overall status at discharge: patient is back to baseline - Discharge Instructions Follow Up With: Teetee Cisneros CNP [Primary Care Provider] - - Diet and Activity Activity: resume usual activities as tolerated Diet: diabetic diet, low fat, low cholesterol Interval History: Seen at bedside, says he feels better today. No further episodes of low BP or dizziness. Denies CP, no SOB Hospital course: See hospital course for assessment and plan - Time Spent with Patient Total time spent providing and/or coordinating discharge services: Less than 30 minutes - Constitutional Vitals: Temp Pulse Resp BP Pulse Ox 98.4 F 83 18 100/57 94 06/13/17 11:21 06/13/17 11:21 06/13/17 11:21 06/13/17 11:21 06/13/17 11:21 General appearance: Present: A&O X 3, answers questions appropriately - Head Head exam: Present: atraumatic, normocephalic - Eye Eye exam: Present: PERRL, conjuntiva pink, sclera anicteric Pupils: Present: PERRL - Neck Neck exam general surgery: Present: supple, trachea midline. Absent: lymphadenopathy - Respiratory Respiratory exam: Present: CTAB. Absent: accessory muscle use, rales, rhonchi, wheezes - Cardiovascular Cardiovascular exam: Present: RRR, +S1, +S2. Absent: diastolic murmur, gallop, rubs, systolic murmur - GI/Abdominal GI/Abdominal exam: Present: normal bowel sounds, soft, no peritoneal signs. Absent: distended, tenderness - Extremities Exam Extremities exam: Present: warm, radial pulses palpable and symmetrical. Absent : calf tenderness, cyanotic, pedal edema - Neurological Exam Neurological exam: Present: CN II-XII intact, oriented X3, no focal deficits. Absent: pronater drift, facial droop, speech deficit - Skin Skin exam: Present: dry, intact
== END 2017-06-13 12:15 | disposition home or self-care (01) ==
LOC: 3BNU 14:59 → EMEROO 14:59 → 3BNU 18:09
PROVIDERS: ADMIT Nurse Practitioner Family; ATTEND Registered Nurse

== ENCOUNTER 2017-07-29 12:04 | Observation (INO) ==
[2017-07-29] MEDS ORDERED: Aspirin 81 MG TAB.CHEW PO ONE (12:59)
[2017-07-29 13:23] LABS: Basophils % 0.4 %; Eosinophils # 0.1 K/mcL (0.0-0.6); Eosinophils % 1.6 %; Hematocrit 40.5 % (37.5-50.1); Hemoglobin 14.7 g/dL (12.9-16.9); Immature Granulocytes % 0.2 % (0-4); Lymphocytes # 0.7 K/mcL (0.6-4.6); Mean Corpuscular HGB Conc 36.3 g/dL (31.6-35.5); Mean Corpuscular Hemoglobin 30.9 pg (28.0-33.3); Mean Corpuscular Volume 85.3 fL (83.0-100.0); Monocytes # 0.8 K/mcL (0.0-1.3); Monocytes % 14.2 %; Neutrophils # 3.9 K/mcL (1.6-8.9); Platelet Count 226 K/mcL (140-400); Red Blood Count 4.75 M/mcL (4.19-5.50); Red Cell Distribution Width 11.6 % (11.5-14.5); Segmented Neutrophils % 71.6 %
[2017-07-29 13:35] LABS: BUN/Creatinine Ratio 22 (6-26); Blood Urea Nitrogen 21 mg/dL (8-26); Calcium 8.4 mg/dL (8.6-10.8); Carbon Dioxide 24 mEq/L (19-29); Chloride 98 mEq/L (98-109); Glucose 176 mg/dL (70-99); Magnesium 1.9 mg/dL (1.6-2.6); Osmolality,Calculated 277 (280-300); Potassium 4.3 mEq/L (3.5-4.5); Sodium 130 mEq/L (136-145); eGFR For African Americans > 60 (> 60); eGFR For Non-African Americans > 60 (> 60)
--- NOTE | 2017-07-29 14:24 | Emergency Department Note ---
Disposition Clinical Impression: Weakness, Palpitations Chest pain Qualifiers: Chest pain type: precordial pain Qualified Code(s): R07.2 - Precordial pain Disposition: Admitted As Inpatient Condition: Fair Time of Disposition: 16:15 Chest Pain HPI - General Chief Complaint: ED Chest Pain Stated Complaint: CP/HTN Time Seen by Provider: 07/29/17 12:31 Source: patient Limitations: no limitations Vital Signs Reviewed: Yes Nursing Notes Reviewed: Yes - History of Present Illness HPI Narrative: 77-year-old male presents with recurrent chest discomfort and palpitations. He is having issues with palpitations over the past 6 months. He had syncope in January of this year and ultimately wore a Holter monitor for 2 days. Some tachyarrhythmias were discovered and he was started on diltiazem. He is having recurring episodes again over the past week for this time associated with chest discomfort. He had coronary bypass grafting in 1994. He had an AL in 2013 and required placement of coronary stents in his previous bypass grafts. The discomfort he is experiencing now is different. Pt complaint: chest pain Onset (ago): day(s) Duration: intermittent Pain Location: substernal Severity: mild, now resolved Severity scale (1-10): 2 Quality: tightness, heaviness Pain Radiation: none Improves with: nothing Worsens with: nothing Associated symptoms: Denies: vomiting, diaphoresis - Related Data Home Medications Medication Instructions Recorded Confirmed Aspirin Enteric Coated [Aspirin EC] 81 mg PO DAILY 03/19/16 07/29/17 Atorvastatin [Lipitor] 40 mg PO HS 03/19/16 07/29/17 Clopidogrel [Plavix] 75 mg PO DAILY 03/19/16 07/29/17 Insulin NPH Hum/Reg Insulin Hm 8 - 12 unit SQ BID 03/19/16 07/29/17 [Novolin 70-30 100 Unit/ml Vial] Isosorbide MONOnitrate [Isosorbide 120 mg PO DAILY 03/19/16 07/29/17 Mononitrate ER] Nitroglycerin [Nitrostat] 0.4 mg SL Q5M PRN 03/19/16 07/29/17 Tamsulosin [Flomax] 0.4 mg PO DAILY 03/19/16 07/29/17 Pantoprazole Sodium [Protonix] 40 mg PO DAILY 06/10/17 07/29/17 Diltiazem CD (24hr) [Cardizem CD] 180 mg PO DAILY 07/29/17 07/29/17 Losartan Potassium [Cozaar] 50 mg PO DAILY 07/29/17 07/29/17 Previous Rx's Medication Instructions Recorded Ranolazine [Ranexa] 500 mg PO BID #60 tab.er.12h 03/20/16 Allergies Allergy/AdvReac Type Severity Reaction Status Date / Time lisinopril AdvReac Cough Verified 07/29/17 12:09 Constitutional: Reports: weakness. Denies: fever, chills Cardiovascular: Reports: chest pain, palpitations, dyspnea on exertion Respiratory: Denies: cough Gastrointestinal: Denies: abdominal pain, nausea, vomiting Genitourinary: Denies: urgency Chest Pain PMH - Past Medical History Medical history: Reports: coronary artery disease, diabetes, hyperlipidemia, hypertension, myocardial infarction Surgical history: Reports: cataract, coronary bypass (CABG) Psychiatric history: Reports: no psych history - Social History Smoking Status: Never smoker Alcohol use: Reports: none Drug use: Reports: none Physical Exam - General Limitations: no limitations General appearance: alert, in no apparent distress - Head Head exam: atraumatic, normocephalic - Eye Eye exam: Present: normal appearance - ENT ENT exam: normal exam - Neck Neck exam: Present: normal inspection, full ROM - Chest Chest inspection: Present: normal inspection - Respiratory Respiratory exam: Present: normal lung sounds bilaterally. Absent: respiratory distress, wheezes - Cardiovascular Cardiovascular exam: Present: regular rate, normal rhythm - Abdominal Exam Abdominal exam: Present: soft, Non-Tender - Extremities Exam Extremities exam: Absent: tenderness - Neurological Exam Neurological exam: Present: alert, oriented X3 - Psychiatric Psychiatric exam: Present: normal affect, normal mood - Skin Skin exam: Present: warm, dry Course - Reevaluation(s) Reevaluation #1: D/W Dr. Cordero and Dr. Schwab; both requested lopressor, ACS heparin protocol, obv. Time: 15:49 Reevaluation #2: D/W Dr. Reid to admit Time: 16:07 Vital Signs Temperature 97.8 F 07/29/17 12:06 Pulse Rate 94 07/29/17 12:06 Respiratory Rate 18 07/29/17 12:06 Blood Pressure 203/96 07/29/17 12:06 O2 Sat by Pulse Oximetry 97 07/29/17 12:06 Temperature 97.8 F 07/29/17 12:06 Pulse Rate 80 07/29/17 14:48 Respiratory Rate 16 07/29/17 14:48 Blood Pressure 135/75 07/29/17 14:48 O2 Sat by Pulse Oximetry 97 07/29/17 14:48 Oxygen Delivery Oxygen Delivery Room Air Chest Pain - Lab Data Result diagrams: 07/29/17 13:16 07/29/17 13:16 Lab Results 07/29/17 07/29/17 07/29/17 Range/Units 13:16 13:16 13:16 WBC 5.5 (4.3-11.1) K/mcL RBC 4.75 (4.19-5.50) M/mcL Hgb 14.7 (12.9-16.9) g/dL Hct 40.5 (37.5-50.1) % MCV 85.3 (83.0-100.0) fL MCH 30.9 (28.0-33.3) pg MCHC 36.3 H (31.6-35.5) g/dL RDW 11.6 (11.5-14.5) % Plt Count 226 (140-400) K/mcL MPV 8.0 L (9.4-12.4) fL Immature Gran % 0.2 (0-4) % Seg Neutrophils % 71.6 % Lymphocytes % 12.0 % Monocytes % 14.2 % Eosinophils % 1.6 % Basophils % 0.4 % Neutrophils # 3.9 (1.6-8.9) K/mcL Lymphocytes # 0.7 (0.6-4.6) K/mcL Monocytes # 0.8 (0.0-1.3) K/mcL Eosinophils # 0.1 (0.0-0.6) K/mcL Basophils # 0.0 (0.0-0.2) K/mcL PT (9.4-12.1) Seconds INR APTT (26.0-36.0) Seconds Sodium 130 L (136-145) mEq/L Potassium 4.3 (3.5-4.5) mEq/L Chloride 98 (98-109) mEq/L Carbon Dioxide 24 (19-29) mEq/L BUN 21 (8-26) mg/dL Creatinine 0.94 (0.72-1.25) mg/dL Est GFR ( Amer) > 60 (> 60) Est GFR (Non-Af Amer) > 60 (> 60) BUN/Creatinine Ratio 22 (6-26) Glucose 176 H (70-99) mg/dL Calculated Osmolality 277 L (280-300) Calcium 8.4 L (8.6-10.8) mg/dL Magnesium 1.9 (1.6-2.6) mg/dL Troponin I 0.00 (0-0.03) ng/mL 07/29/17 07/29/17 Range/Units 15:55 15:55 WBC (4.3-11.1) K/mcL RBC (4.19-5.50) M/mcL Hgb (12.9-16.9) g/dL Hct (37.5-50.1) % MCV (83.0-100.0) fL MCH (28.0-33.3) pg MCHC (31.6-35.5) g/dL RDW (11.5-14.5) % Plt Count (140-400) K/mcL MPV (9.4-12.4) fL Immature Gran % (0-4) % Seg Neutrophils % % Lymphocytes % % Monocytes % % Eosinophils % % Basophils % % Neutrophils # (1.6-8.9) K/mcL Lymphocytes # (0.6-4.6) K/mcL Monocytes # (0.0-1.3) K/mcL Eosinophils # (0.0-0.6) K/mcL Basophils # (0.0-0.2) K/mcL PT 11.0 (9.4-12.1) Seconds INR 1.0 APTT 26.4 (26.0-36.0) Seconds Sodium (136-145) mEq/L Potassium (3.5-4.5) mEq/L Chloride (98-109) mEq/L Carbon Dioxide (19-29) mEq/L BUN (8-26) mg/dL Creatinine (0.72-1.25) mg/dL Est GFR ( Amer) (> 60) Est GFR (Non-Af Amer) (> 60) BUN/Creatinine Ratio (6-26) Glucose (70-99) mg/dL Calculated Osmolality (280-300) Calcium (8.6-10.8) mg/dL Magnesium (1.6-2.6) mg/dL Troponin I 0.02 (0-0.03) ng/mL
[2017-07-29] MEDS ORDERED: *HR* Metoprolol 5 MG/5 ML VIAL IVP ONE (15:35)
[2017-07-29] MEDS ORDERED: *HR* Heparin 5,000 UNIT/ML VIAL IVP PRN ×2 (15:36)
[2017-07-29] MEDS ORDERED: *HR* Heparin 5,000 UNIT/ML VIAL IVP ONE (15:36)
[2017-07-29] MEDS ORDERED: Heparin 25,000 UNIT/500 ML D5W 25,000 UNIT/500 ML MLS IVC SCH (15:45)
[2017-07-29 16:15] LABS: Activated Partial Thrombo Time 26.4 Seconds (26.0-36.0)
[2017-07-29] MEDS ORDERED: Dextrose Gel 15 GM PO PRN ×2 (21:04)
[2017-07-29] MEDS ORDERED: *HR* Dextrose 50 % in Water (Syg) 50 ML SYRINGE IVP PRN (21:04)
[2017-07-29] MEDS ORDERED: D5% in Water 1,000 ML IVC PRN (21:04)
[2017-07-29] MEDS ORDERED: Naloxone 0.4 MG/ML INJ IVP PRN (21:04)
[2017-07-29] MEDS: Insulin LISPRO 300 UNITS/3 ML VIAL SQ SCH (21:20)
--- NOTE | 2017-07-29 21:44 | Internal Med History&Physical ---
<Liang Oseguera - Last Filed: 07/29/17 21:42> Date of Encounter: 07/29/17 Time of Encounter: 21:42 Assessment and Plan (1) Chest pain Current visit: Yes Status: Acute Continues to endorse intermittent chest discomfort and palpitations. He states that his chest is tight/heavy, but has improved since arrival. Initially upon arrival SBP was elevated systolically in the 190s, with blood pressure improvement in his chest tightness is also improved. He has multiple risk factors including prior ND, CABG in 1994, stenting and coronary bypass catheter, diabetes, HLD and hypertension. Reports that recently his blood pressure medications adjusted from cardiology and is having increasing palpitations and high BP since Has had a recent cardiac workup including Holter monitor approximately 2 weeks ago-per patient Echocardiogram in 2016 Cardiac stress in January 2017 Cardio consult assist with further management of titrating pressure medications Continue heparin drip as recommended per cardiology-due to cardiac history and concern the patient may need a [facility] Hydralazine 10 mg IV per SBP sustained greater than 160 Continue to further rule out ND, serial troponins Continuous telemetry, continuous SPO2 monitoring Qualifiers: Chest pain type: precordial pain Qualified Code(s): R07.2 - Precordial pain (2) Palpitations Current visit: Yes Status: Acute See plan above (3) CAD (coronary artery disease) Current visit: Yes Status: Chronic Continue Plavix, aspirin and statin Qualifiers: Coronary Disease-Associated Artery/Lesion type: bypass graft [place] vs. transplanted heart: [place] heart Associated angina: with stable angina Qualified Code(s): I25.708 - Atherosclerosis of coronary artery bypass graft(s) , unspecified, with other forms of angina pectoris (4) HTN (hypertension) Current visit: Yes Status: Acute Was initially hypertensive upon arrival with his BPs in the 190s. Sbp stable now 140s. Restart home blood pressure medications, add hydralazine to be sustained greater than 160 Qualifiers: Hypertension type: essential hypertension Qualified Code(s): I10 - Essential (primary) hypertension (5) Diabetes mellitus Current visit: Yes Status: Acute Low Sliding scale insulin coverage, before meals and at bedtime Accu-Cheks with diabetic diet Qualifiers: Diabetes mellitus type: type 2 Diabetes mellitus complication status: without complication Diabetes mellitus terminal clerk insulin use: with custodial use Qualified Code(s): E11.9 - Type 2 diabetes mellitus without complications ; Z79.4 - assisted (current) use of insulin; Z79.4 - assisted (current) use of insulin; Z79.4 - long term care social worker (current) use of insulin; Z79.4 - assisted ( current) use of insulin (6) DVT prophylaxis Current visit: Yes Status: Acute Continue heparin drip Internal Medicine - H&P: HPI Chief complaint: Chest pain Admitted From: Home Plans for Post Hospital Care: Home History of present illness: Mr. Musa is a 77 year old male with a PMH of CABG in 1994, ND in 2013, multiple cardiac stents including stents and bypass grafts, CAD, DM, HRT and hypertension. Presents today with ongoing chest discomfort and palpitations. He reports this has been occurring more frequently since January 2017. In January 2017 He Reports a syncopal event and hypotension with SBP in the 80s. Seen by cardiology at that time and had his blood pressure medication adjusted. Since then he has been experiencing an increase in hypertension, and palpitations as well as chest discomfort. He reports that as of 2 weeks ago he just completed a 2 week Holter monitor and states the only thing they found was some tachyarrhythmia and PVCs. He denies any fever, chills, diaphoresis, nausea, shortness of breath. For this were negative, troponins negative 2. Admitted for further monitoring and rule out ACS Past Med Surg Social Fam HX - Past Medical History Medical history: coronary artery disease, diabetes, hyperlipidemia, hypertension , myocardial infarction Psychiatric history: no psych history - Past Surgical History Surgical History: cataract, coronary bypass (CABG) - Social History Smoking Status: Never smoker Smokeless Tobacco Status: No Alcohol use: none Drug use: none - Family History Mother Age at : 65 Cause of : heart attack Hx Family Cardiac Disorders: Yes Hx Family Endocrine Disorder: Yes Father Age: 50 Living Status: Age at : 50 Cause of : heart attack Hx Family Cardiac Disorders: Yes (ND) Internal Medicine - H&P: Meds Aspirin Enteric Coated [Aspirin EC] 81 mg PO DAILY 03/19/16 [History] Atorvastatin [Lipitor] 40 mg PO HS 03/19/16 [History] Clopidogrel [Plavix] 75 mg PO DAILY 03/19/16 [History] Insulin NPH Hum/Reg Insulin Hm [Novolin 70-30 100 Unit/ml Vial] 8 - 12 unit SQ BID 03/19/16 [History] Isosorbide MONOnitrate [Isosorbide Mononitrate ER] 120 mg PO DAILY 03/19/16 [ History] Nitroglycerin [Nitrostat] 0.4 mg SL Q5M PRN 03/19/16 [History] Tamsulosin [Flomax] 0.4 mg PO DAILY 03/19/16 [History] Ranolazine [Ranexa] 500 mg PO BID #60 tab.er.12h 03/20/16 [Rx] Pantoprazole Sodium [Protonix] 40 mg PO DAILY 06/10/17 [History] Diltiazem CD (24hr) [Cardizem CD] 180 mg PO DAILY 07/29/17 [History] Losartan Potassium [Cozaar] 50 mg PO DAILY 07/29/17 [History] 3 Allergy/AdvReac Type Severity Reaction Status Date / Time lisinopril AdvReac Cough Verified 07/29/17 12:09 All Systems PM: A 10-system review of systems was performed and is negative for pertinent findings except as documented above in the HPI. - Constitutional Constitutional: no chills, no fatigue, no fever(s), no night sweats - EENT Eyes: no change in vision, no discharge, no pain, no photophobia Ears: no ear discharge, no ear pain, no tinnitus Nose, mouth and throat: no dysphagia, no nasal discharge, no neck pain, no sore throat - Cardiovascular Cardiovascular ROS IM: chest pain, irregular heart rhythm, palpitations, no diaphoresis, no dyspnea, no edema, no lightheadedness, no syncope - Respiratory Respiratory: no cough, no dyspnea, no wheezing, no excessive phlegm production - Gastrointestinal Gastrointestinal: no abdominal pain, no diarrhea, no hematemesis, no hematochezia, no melena, no nausea, no vomiting - Musculoskeletal Musculoskeletal ROS IM: no numbness, no tingling - Integumentary Integumentary IM: no rash, no unusual bruising - Neurological Neurological ROS: no confusion, no convulsions, no focal weakness, no numbness, no tingling, no tremor(s) - Hematologic/Lymphatic Hematologic/Lymphatic: no easy bruising - Constitutional Vitals: Temp Pulse Resp BP Pulse Ox 97.8 F 67 16 142/81 98 07/29/17 12:06 07/29/17 17:12 07/29/17 17:12 07/29/17 17:12 07/29/17 21:33 General appearance: Present: cooperative, A&O X 3, no acute distress, answers questions appropriately - Head Head exam: Present: atraumatic, normocephalic - Eye Eye exam: Present: PERRL, conjuntiva pink, sclera anicteric Pupils: Present: PERRL - Neck Neck exam general surgery: Present: supple, trachea midline. Absent: lymphadenopathy - Respiratory Respiratory exam: Present: CTAB. Absent: accessory muscle use, rales, rhonchi, wheezes - Cardiovascular Cardiovascular exam: Present: RRR, +S1, +S2. Absent: diastolic murmur, gallop, rubs, systolic murmur - GI/Abdominal GI/Abdominal exam: Present: normal bowel sounds, soft, no peritoneal signs. Absent: distended, tenderness - Extremities Exam Extremities exam: Present: warm, radial pulses palpable and symmetrical. Absent : calf tenderness, cyanotic, pedal edema - Neurological Exam Neurological exam: Present: CN II-XII intact, oriented X3, no focal deficits. Absent: pronater drift, facial droop, speech deficit - Skin Skin exam: Present: dry, intact Internal Med - H&P Results - Labs CBC & Chem 7: 07/29/17 13:16 07/29/17 13:16 - EKG Data -: EKG Interpreted by Myself EKG shows normal: sinus rhythm - EKG Data Prior EKG available for review: yes EKG comments: 07/29/17 21:45 Sinus rhythm with supraventricular premature atrial complexes - Diagnostic Studies Chest x-ray Status: image reviewed by me Additional comments: No acute pulmonary process - VTE Reasons for not Prescribing Prophylaxis: Not indicated-Anticoagulated or INR therapeutic Documentation of Mechanical Device: Graduated compression elastic hosiery <Tao Adams - Last Filed: 07/30/17 02:41> Date of Encounter: 07/29/17 Time of Encounter: 23:20 - Constitutional Vitals: Temp Pulse Resp BP Pulse Ox 98 F 65 15 133/59 96 07/30/17 00:00 07/30/17 00:00 07/30/17 00:00 07/30/17 00:00 07/30/17 00:00 General appearance: Present: A&O X 3, no acute distress - Eye Eye exam: Present: EOMI, PERRL. Absent: scleral icterus Pupils: Present: normal accommodation - Neck Neck exam general surgery: Present: full ROM, supple. Absent: tenderness - Expanded Neck Exam Neck exam: Absent: carotid bruit - Respiratory Respiratory exam: Present: CTAB. Absent: rales, rhonchi, wheezes - Cardiovascular Cardiovascular exam: Present: RRR, +S1, +S2. Absent: diastolic murmur, systolic murmur - GI/Abdominal GI/Abdominal exam: Present: normal bowel sounds, soft. Absent: tenderness - Extremities Exam Extremities exam: Present: warm, radial pulses palpable and symmetrical. Absent : calf tenderness, pedal edema, tenderness - Back Exam Back exam: Absent: CVA tenderness (L), CVA tenderness (R) - Neurological Exam Neurological exam: Present: alert, CN II-XII intact, oriented X3, no focal deficits Internal Med - H&P Results - Labs CBC & Chem 7: 07/29/17 13:16 07/29/17 13:16 Labs: Cardiac Enzymes 07/29/17 Range/Units 21:20 Troponin I 0.01 (0-0.03) ng/mL - EKG Data -: EKG Interpreted by Myself - EKG Data EKG comments: 07/30/17 02:35 NSR w PAC's; no acute changes - Diagnostic Studies Chest x-ray Status: image reviewed by me (negative) - Attending Attestation I discussed the patient [place], PMH, ROS, lab data, and exam findings with Liang Oseguera CNP. I then saw and examined patient independently as well. Patient is pain free presently on my assessment. However, he describes anginal type symptoms over the last few days, which have been worsening. He has known CAD and remains on heparin drip. Additionally, his BP was severely elevated upon arrival to ER. Presently, BP is in the 140's/80's. Cardiology has already been consulted through ER. He will likely need LHC. Will continue current regimen as detailed by Liang. Other than my comments above and noted exam findings, I agree with Liang's assessment and plan.
[2017-07-30] MEDS: *HR* Morphine 2 MG/ML SYRINGE IVP PRN ×3 (03:01→20:32)
[2017-07-30 03:36] LABS: BUN/Creatinine Ratio 18 (6-26); Blood Urea Nitrogen 18 mg/dL (8-26); Calcium 8.4 mg/dL (8.6-10.8); Carbon Dioxide 23 mEq/L (19-29); Chloride 101 mEq/L (98-109); Glucose 153 mg/dL (70-99); Osmolality,Calculated 281 (280-300); Potassium 3.9 mEq/L (3.5-4.5); Sodium 133 mEq/L (136-145); eGFR For African Americans > 60 (> 60); eGFR For Non-African Americans > 60 (> 60)
[2017-07-30 03:41] LABS: Basophils % 0.6 %; Eosinophils # 0.2 K/mcL (0.0-0.6); Eosinophils % 3.2 %; Hematocrit 40.6 % (37.5-50.1); Hemoglobin 14.9 g/dL (12.9-16.9); Immature Granulocytes % 0.2 % (0-4); Lymphocytes # 1.4 K/mcL (0.6-4.6); Lymphocytes % 22.9 %; Mean Corpuscular HGB Conc 36.7 g/dL (31.6-35.5); Mean Corpuscular Hemoglobin 31.2 pg (28.0-33.3); Mean Corpuscular Volume 85.1 fL (83.0-100.0); Mean Platelet Volume 8.4 fL (9.4-12.4); Monocytes # 0.8 K/mcL (0.0-1.3); Neutrophils # 3.7 K/mcL (1.6-8.9); Platelet Count 249 K/mcL (140-400); Red Blood Count 4.77 M/mcL (4.19-5.50); Red Cell Distribution Width 11.7 % (11.5-14.5); Segmented Neutrophils % 60.1 %
[2017-07-30 06:43] LABS: Activated Partial Thrombo Time 45.6 Seconds (26.0-36.0)
[2017-07-30] MEDS ORDERED: *HR* Heparin 5,000 UNIT/ML VIAL IVP PRN ×2 (07:05)
--- NOTE | 2017-07-30 07:44 | Electrocardiograph Report ---
[facility] Test Date: 2017-07-29 Pat Name: Mark Musa Department: 102 Room: 2NE22 Gender: M Manager Project: [place] : 1940 Requested By: Elder Brewster Order Number: [id number] Reading MD: Arleen Garduno DO Measurements Intervals [place] Rate: 94 P: 51 WI: 162 QRS: 34 QRSD: 96 T: 84 QT: 332 QTc: 383 Interpretive Statements SINUS RHYTHM WITH OCCASIONAL SUPRAVENTRICULAR PREMATURE COMPLEXES NONSPECIFIC T-WAVE ABNORMALITY Electronically Signed On 07-30-2017 7:43:02 EST by Arleen Garduno DO
[2017-07-30 08:05] LABS: Prothrombin Time 11.2 Seconds (9.4-12.1)
[2017-07-30] MEDS: Diltiazem CD (24hr) 180 MG CAPSULE PO SCH (09:00)
[2017-07-30] MEDS: Aspirin Enteric Coated 81 MG Tablet PO SCH (09:00)
[2017-07-30] MEDS: Ranolazine 500 MG TAB.ER.12H PO SCH ×2 (09:00→23:20)
[2017-07-30] MEDS: Isosorbide MONOnitrate (24 HR) 60 MG TAB.ER.24H PO SCH (09:00)
[2017-07-30] MEDS: Insulin LISPRO 300 UNITS/3 ML VIAL SQ SCH ×4 (09:01→19:56)
--- NOTE | 2017-07-30 10:31 | Cardiology Consult Note ---
Date of Encounter: 07/30/17 Time of Encounter: 10:29 Assessment and Plan (1) Chest pain Current Visit: Yes Status: Acute 77-year-old male with chest pain and palpitations. Previous palpitations were documented as PACs and PVCs with a run of bigeminy. Previous stress test was unremarkable however currently patient has worsening chest discomfort. 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 We will proceed with a second stress test to rule out ischemia in the vein graft to the obtuse marginal if abnormal we will proceed with left heart catheter. Patient will be started on ACS medication including aspirin and Plavix and heparin IV Qualifiers: Chest pain type: other chest pain Qualified Code(s): R07.89 - Other chest pain; R07.8 - Other chest pain Discussion w patient/family: The assessment and plan as outlined above was discussed with the patient and/or family members who expressed understanding and agreement. All questions were answered. Thank you for involving us in the care of your patient. Please call with any questions. History of Present Illness Consult date: 07/30/17 Requesting physician: Kristin Hall Consult reason: chest pain Chief complaint: chest pain and palpitations History of present illness: Mr. Musa is a 77 year old male who presents to the emergency department with palpitations and chest pain. Patient describes a fluttering sensation all with heaviness in the retrosternal area lasting a few minutes at a time. His most recent episode this morning radiated to his back which was different from previous surgery. He recently had a negative stress test March 2017 and a preserved ejection fraction of 60%. Cultures and event monitors have revealed multiple PVCs and PVCs with a run of bigeminy. His EKG does show ST depressions laterally compared to previous baseline EKG. A left heart catheter was January 2016 revealing disease in the vein graft to the obtuse marginal which on FFR was nonsignificant. Current troponins are negative 2. We will proceed with chemical stress test to rule out ischemia in the vein graft to the obtuse marginal as previous FFR was nonsignificant. His enzymes are unremarkable and EKG shows slight changes laterally. Past Med Surg Social Fam HX - Past Medical History Medical history: coronary artery disease, diabetes, hyperlipidemia, hypertension , myocardial infarction Psychiatric history: no psych history - Past Surgical History Surgical History: cataract, coronary bypass (CABG) - Social History Smoking Status: Never smoker Smokeless Tobacco Status: No Alcohol use: none Drug use: none - Family History Mother Age at : 65 Cause of : heart attack Hx Family Cardiac Disorders: Yes Hx Family Endocrine Disorder: Yes Father Age: 50 Living Status: Age at : 50 Cause of : heart attack Hx Family Cardiac Disorders: Yes ([place]) Medications and Allergies Aspirin Enteric Coated [Aspirin EC] 81 mg PO DAILY 03/19/16 [History] Atorvastatin [Lipitor] 40 mg PO HS 03/19/16 [History] Clopidogrel [Plavix] 75 mg PO DAILY 03/19/16 [History] Insulin NPH Hum/Reg Insulin Hm [Novolin 70-30 100 Unit/ml Vial] 8 - 12 unit SQ BID 03/19/16 [History] Isosorbide MONOnitrate [Isosorbide Mononitrate ER] 120 mg PO DAILY 03/19/16 [ History] Nitroglycerin [Nitrostat] 0.4 mg SL Q5M PRN 03/19/16 [History] Tamsulosin [Flomax] 0.4 mg PO DAILY 03/19/16 [History] Ranolazine [Ranexa] 500 mg PO BID #60 tab.er.12h 03/20/16 [Rx] Pantoprazole Sodium [Protonix] 40 mg PO DAILY 06/10/17 [History] Diltiazem CD (24hr) [Cardizem CD] 180 mg PO DAILY 07/29/17 [History] Losartan Potassium [Cozaar] 50 mg PO DAILY 07/29/17 [History] 3 Allergy/AdvReac Type Severity Reaction Status Date / Time lisinopril AdvReac Cough Verified 07/29/17 12:09 All Systems Review: A 10-system review of systems was performed and is negative for pertinent findings except as documented above in the HPI. Physical Examination Vital Signs, Last 4 Hours Temp Pulse Resp BP Pulse Ox 07/30/17 09:00 96 07/30/17 07:23 97.7 F 70 14 154/74 96 General: Conversant, No Apparent Distress HEENT: Atraumatic, Normocephaly, Mucus Membranes Moist Neck: No JVD, Normal carotid pulses Cardiac: Reg Rate and Rhythm, Normal S1 and S2, No Murmur Lungs: Normal Breath Sounds, No Wheeze, Rales, Rhonchi Neuro: Alert and responsive, No focal deficits noted Abdomen: Soft, Non-Tender Skin: No rashes noted on visualized skin Musculoskeletal: No Chest Wall Tenderness Extremities: No Clubbing, No Cyanosis, No Edema, Normal Pulses Results 07/30/17 02:57 07/30/17 02:57 Lab Results 07/29/17 07/29/17 07/30/17 21:20 21:20 02:57 WBC Hgb Hct Plt Count INR APTT 107.4 H D Sodium Potassium Chloride Carbon Dioxide BUN Creatinine Glucose Calcium Troponin I 0.01 0.02 07/30/17 07/30/17 07/30/17 02:57 02:57 05:29 WBC 6.2 Hgb 14.9 Hct 40.6 Plt Count 249 INR 1.0 APTT 45.6 H D Sodium 133 L Potassium 3.9 Chloride 101 Carbon Dioxide 23 BUN 18 Creatinine 0.99 Glucose 153 H Calcium 8.4 L Troponin I 07/30/17 08:44 WBC Hgb Hct Plt Count INR APTT Sodium Potassium Chloride Carbon Dioxide BUN Creatinine Glucose Calcium Troponin I 0.01 Consult Discharge Plan - Plan Referrals: Teetee Cisneros CNP [Primary Care Provider] - 08/08/17 3:30 pm
--- NOTE | 2017-07-30 12:07 | Internal Med Progress Note ---
Date of Encounter: 07/30/17 Time of Encounter: 12:07 - Assessment and plan (1) Chest pain Current Visit: Yes Status: Acute Assessment and plan: Cardiology on board and scheduled for [facility] today continue heparin gtt until [facility] morphine IV prn chest pain tele monitoring continue ASA, Plavix, Statin, BB Qualifiers: Chest pain type: other chest pain Qualified Code(s): R07.89 - Other chest pain; R07.8 - Other chest pain (2) CAD (coronary artery disease) Current Visit: Yes Status: Chronic Assessment and plan: as listed above Qualifiers: Coronary Disease-Associated Artery/Lesion type: bypass graft [place] vs. transplanted heart: [place] heart Associated angina: with stable angina Qualified Code(s): I25.708 - Atherosclerosis of coronary artery bypass graft(s) , unspecified, with other forms of angina pectoris (3) Palpitations Current Visit: Yes Status: Resolved (4) Diabetes mellitus Current Visit: Yes Status: Chronic Assessment and plan: continue sliding scale insulin algorithm monitor FS and BG ADA diet after [facility] Qualifiers: Diabetes mellitus type: type 2 Diabetes mellitus complication status: without complication Diabetes mellitus skilled nursing insulin use: with skilled nursing use Qualified Code(s): E11.9 - Type 2 diabetes mellitus without complications ; Z79.4 - senior living (current) use of insulin; Z79.4 - senior living (current) use of insulin; Z79.4 - watermaster (current) use of insulin; Z79.4 - senior living ( current) use of insulin (5) DVT prophylaxis Current Visit: Yes Status: Acute Assessment and plan: anticoagulated with Heparin gtt (6) HTN (hypertension) Current Visit: Yes Status: Chronic Assessment and plan: BP within acceptable range continue home meds Qualifiers: Hypertension type: essential hypertension Qualified Code(s): I10 - Essential (primary) hypertension - Subjective Interval history: Patient seen and examined at bedside. Resting in bed and reported of having pressure like chest pain earlier this morning which was relieved by morphine. pt currently chest pain free and denies any discomfort. He recently had a stress test which was negative for any perfusion defects Cardiology on board and scheduled for [facility] later today (07/30/17) - Constitutional Vitals: Temp Pulse Resp BP Pulse Ox 97.9 F 80 15 110/61 96 07/30/17 11:42 07/30/17 11:42 07/30/17 11:42 07/30/17 11:42 07/30/17 11:42 General appearance: Present: cooperative, A&O X 3, pleasant, no acute distress, answers questions appropriately - Head Head exam: Present: atraumatic, normocephalic - Eye Eye exam: Present: conjuntiva pink, sclera anicteric - Respiratory Respiratory exam: Present: CTAB. Absent: accessory muscle use, rales, rhonchi, wheezes - Cardiovascular Cardiovascular exam: Present: RRR, +S1, +S2. Absent: diastolic murmur, gallop, rubs, systolic murmur - GI/Abdominal GI/Abdominal exam: Present: normal bowel sounds, soft, no peritoneal signs. Absent: distended, tenderness - Extremities Exam Extremities exam: Present: warm, radial pulses palpable and symmetrical. Absent : calf tenderness, cyanotic, pedal edema - Neurological Exam Neurological exam: Present: alert, oriented X3 - Psychiatric Psychiatric exam: Present: normal affect, normal mood Internal Medicine: Result - Labs CBC & Chem 7: 07/30/17 02:57 07/30/17 02:57 Labs: Short CBC 07/30/17 Range/Units 02:57 WBC 6.2 (4.3-11.1) K/mcL Hgb 14.9 (12.9-16.9) g/dL Hct 40.6 (37.5-50.1) % Plt Count 249 (140-400) K/mcL Neutrophils # 3.7 (1.6-8.9) K/mcL BMP 07/30/17 02:57 Sodium 133 L Potassium 3.9 Chloride 101 Carbon Dioxide 23 BUN 18 Creatinine 0.99 Glucose 153 H Calcium 8.4 L Cardiac Enzymes 07/29/17 07/30/17 07/30/17 Range/Units 21:20 02:57 08:44 Troponin I 0.01 0.02 0.01 (0-0.03) ng/mL - ABG Interpretation ABG results: PT/INR, D-dimer PT 11.2 Seconds (9.4-12.1) 07/30/17 05:29 - VTE Reasons for not Prescribing Prophylaxis: Not indicated-Anticoagulated or INR therapeutic Documentation of Mechanical Device: Graduated compression elastic hosiery Consult Discharge Plan - Plan Referrals: Teetee Cisneros, PATROLLER [Primary Care Provider] - 08/08/17 3:30 pm
[2017-07-30] MEDS: Nitroglycerin 0.4 MG TAB.SUBL SL PRN ×2 (13:32→13:39)
[2017-07-30] MEDS ORDERED: *HR* Heparin 10,000 UNIT/10 ML VIAL ONE ×2 (15:21→17:02)
[2017-07-30] MEDS ORDERED: 0.9 % Sodium Chloride 1,000 ML ONE ×2 (15:21→17:01)
[2017-07-30] MEDS ORDERED: Heparin 1,000 UNITS/500 mL NS 500 ML ONE ×2 (15:21→17:01)
[2017-07-30] MEDS ORDERED: Nitroglycerin 1,000 MCG/10 ML VIAL IV ONE ×3 (15:21→18:21)
--- NOTE | 2017-07-30 15:27 | Pre-Sedation Evaluation ---
Pre-sedation evaluation - Pre-sedation checklist Date of procedure: 07/30/17 Procedure: [facility] Recent Vitals: Last Vital Signs Temp 97.9 F 07/30/17 11:42 Pulse 80 07/30/17 11:42 Resp 15 07/30/17 11:42 BP 110/61 07/30/17 11:42 Pulse Ox 96 07/30/17 11:42 H&P (including ROS) documented in medical record: Yes Previous reaction to sedatives/anesthetics: No Dietary Status: NPO after Midnight Airway Assessment: Patient can open mouth completely, TMJ function normal, Micrognathia (under-bite, receding chin) absent, Neck with adequate range of motion Dentition: No loose teeth or bridges Possible difficult airway: No ASA Classification *see protocol: CLASS II-Mild systemic disease Plan of Care: Pt appropriate candidate for procedure/moderate/conscious sedation , Risks/benefits of procedure/sedation discussed w/ patient/family
[2017-07-30] MEDS ORDERED: *HR* FentaNYL (PF) 100 MCG/2 ML VIAL ONE ×2 (15:34→17:34)
[2017-07-30] MEDS ORDERED: *HR* Midazolam HCl 2 MG/2 ML VIAL ONE ×4 (15:34→18:25)
[2017-07-30] MEDS ORDERED: *HR* Bivalirudin 250 MG VIAL IVC ONE (18:00)
--- NOTE | 2017-07-30 19:46 | Invasive Diagnostic Lab Proc ---
Name: Mark Musa Date of Study: 07/30/2017 Date: 1940 Ht: 66.9in Medical Record#: [id number] Age: 77 Wt: 134.26lb Gender: Male BSA: 1.71 Order #: [id number] BMI: 21.07 Physicians Procedure Physician: Stefania Sorensen MD, [facility] Referring MD: Referring MD: Staff Name Position Time In Emily Masterson RT (R) Scrub 05:30 PM Flori Marroquin RN Rad Technologist 05:30 PM Rachael Patrick RN Monitor 05:30 PM Indications Indication Unstable Angina Procedures Performed Procedure L HRT ART/GRFT ANGIO PRQ CARD MICHEL STENT W/ANGIO 1 VSL PRQ REVASC BYP GRAFT 1 VSL Pre-Procedure Checklist Informed consent is complete signed and on chart. H&P is on chart. ID band is on and ID verified with patient. Patient NPO for procedure The procedure was described for the patient and questions were answered. Blood Pressure: 142/65 ECG is on chart. Rhythm: NSR Plan of Care Patient will tolerate the procedure without complications. Adequate level of comfort will be maintained. Hemodynamics will remain stable Patient will recover from procedure without complications. Respiratory function will be maintained. Cardiac rhythm will remain stable. Patient temperature will be maintained. Patient and/or family have verbalized understanding of the procedure. Patient Education Intravenous Access Time IV Size Location DC'd Fluid/Drip Rate Units RN 03:31 PM 20g 1 1/" Patent On Arrival Lt Antecubital 0.9NaCl 100 ml/hr Rachael Patrick RN Allergies lisinopril Vital Signs Time BP (mmHg) HR (bpm) O2 Sat. RR (bpm) LOC 05:43 PM / % 5 = Fully awake and oriented or at pre-proc level 05:43 PM / % 5 = Fully awake and oriented or at pre-proc level 05:58 PM / % 4 = Oriented but drowsy 06:50 PM / % 5 = Fully awake and oriented or at pre-proc level 06:56 PM / % 4 = Oriented but drowsy 06:56 PM / % 5 = Fully awake and oriented or at pre-proc level 07:11 PM / % 5 = Fully awake and oriented or at pre-proc level 06:05 PM 115 / 59 85 99 % 16 06:10 PM 119 / 63 83 99 % 15 06:15 PM 123 / 69 91 99 % 18 06:20 PM 113 / 62 86 98 % 18 06:25 PM 119 / 63 74 98 % 21 06:30 PM 113 / 64 72 98 % 13 06:35 PM 119 / 65 69 98 % 9 06:40 PM 118 / 62 85 100 % 17 06:45 PM 115 / 59 73 99 % 22 06:50 PM 114 / 45 72 99 % 21 05:30 PM 142 / 65 72 98 % 14 05:35 PM 131 / 75 77 99 % 17 05:40 PM 104 / 58 75 98 % 13 05:45 PM 94 / 51 75 98 % 13 05:48 PM 98 / 49 78 98 % 12 05:50 PM 100 / 50 83 98 % 14 05:55 PM 96 / 50 77 98 % 20 06:00 PM 109 / 56 81 98 % 16 06:55 PM 122 / 65 70 100 % 17 07:00 PM 122 / 64 80 97 % 16 07:05 PM 123 / 74 87 99 % 24 07:22 PM 126 / 81 72 95 % 16 5 = Fully awake and oriented or at pre-proc level 07:38 PM 125 / 76 76 96 % 14 5 = Fully awake and oriented or at pre-proc level Procedural Medications Time Medication Dose Units Method Given By 05:31 PM Oxygen 2 L/min nasal cannula Flori Marroquin RN 05:33 PM Versed 2 mg Intravenous Flori Marroquin RN 05:33 PM Fentanyl 50 mcg Intravenous Flori Marroquin RN 05:45 PM Lidocaine 2% 11 ml Subcutaneous Stefania Sorensen MD, FACC 05:56 PM 0.9NaCl 200 ml Intravenous Flori Marroquin RN 06:04 PM Angiomax 0.75mg/kg bolus: 9 ml Intravenous Flori Marroquin RN 06:04 PM Angiomax 1.75mg/kg/hr: 21 ml Intravenous Folri Marroquin RN 06:15 PM Nitroglycerin 200 mcg Intracoronary Stefania Sorensen MD, FACC 06:24 PM Versed 1 mg Intravenous Flori Marroquin RN 06:24 PM Fentanyl 25 mcg Intravenous Flori Marroquin RN 06:43 PM Fentanyl 25 mcg Intravenous Flori Marroquin RN 06:55 PM Nitroglycerin 200 mcg Intracoronary Stefania Sorensen MD, FACC 07:01 PM Plavix 300 mg Orally Flori Marroquin RN ASA Classification: CLASS II- Mild systemic disease (i.e. well-controlled diabetes, hypertension, asthma, cigarette smoking) Geeta Score Preprocedure Postprocedure Activity 2- Moves 4 extremities sustained head lift Activity 2- Moves 4 extremities sustained head lift Circulation 2- SBP +/= 20 points of pre-anesthetic level Circulation 2- SBP +/= 20 points of pre-anesthetic level Consciousness 2- Awake and alert oriented x 3 Consciousness 2- Awake and alert oriented x 3 O2 Saturation 2- Able to maintain O2 satruation of 92% on room air O2 Saturation 2- Able to maintain O2 satruation of 92% on room air Respiratory 2- Able to deep breathe and cough well Respiratory 2- Able to deep breathe and cough well Total Score 10 Total Score 10 Contrast Agent: Isovue Fluoro Dose: 516 mGy Procedure Log Time Note Enter By 05:29 PM Vitals capture started with the following parameters, Patient=Adult, Interval=5 min, Initial Bjvyjodq=466 mmHg, Deflation Rate=5 mmHg, Cuff placed on Right Arm 05:29 PM CathStat 05:30 PM HR=72 bpm, LZDV=971/65 mmhg, SpO2=98.0 %, Resp=14 B/min, Comment=SR 05:30 PM 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 Bilateral groin prepped with Chloraprep by Tiffanie Mcpherson RN, safety strap applied then patient was draped. Skin intact. ejohnson 05:31 PM Physician arrived 17:31 ejohnson 05:31 PM ASA Class CLASS II- Mild systemic disease (i.e. well-controlled diabetes, hypertension, asthma, cigarette smoking) ejohnson 05:31 PM Meet and eliza completed ejohnson 05:31 PM Sign in performed according to hospital policy. ejohnson 05:31 PM Procedure start 17:31 ejohnson 05:31 PM Time: 17:31 Oxygen on at 2 L/min per nasal cannula by Flori Marroquin RN ejohnson 05:32 PM Recorded ECG: HR=77 Condition=Condition 1 05:33 PM Time: 17:33 Versed 2 mg Intravenous Given by Flori Marroquin RN ejohnson 05:33 PM Time: 17:33 Fentanyl 50 mcg Intravenous Given by Flori Marroquin RN ejohnson 05:35 PM HR=77 bpm, PZNP=872/75 mmhg, SpO2=99.0 %, Resp=17 B/min, Comment=SR 05:40 PM HR=75 bpm, DRAJ=439/58 mmhg, SpO2=98.0 %, Resp=13 B/min, Comment=SR 05:43 PM Time: 17:43 Patient comfortable and pain free: Yes ejohnson 05:43 PM Time: 17:43LOC: 5 = Fully awake and oriented or at pre-proc level ejohnson 05:44 PM Time out performed according to hospital policy ejohnson 05:45 PM HR=75 bpm, NIBP=94/51 mmhg, SpO2=98.0 %, Resp=13 B/min, Comment=SR 05:45 PM Time: 17:45 11 ml Lidocaine 2% to right groin Subcutaneous Given by Stefania Sorensen MD, [facility] ejohnson 05:45 PM Access obtained by percutaneous puncture. 5Fr 10cm Terumo Gray[place] sheath placed in right Femoral artery. [id number] ejohnson 05:46 PM 5Fr FL 4 catheter inserted over the wire C ejohnson 05:47 PM LCA angiography performed in multiple views. ejohnson 05:47 PM Recorded Pressure: Ao, HR=76, Condition=Condition 1 (Aorta) Ao 73/48/60 05:47 PM NIBP STAT measurement started. 05:48 PM HR=78 bpm, NIBP=98/49 mmhg, SpO2=98 %, Resp=12 B/min 05:50 PM HR=83 bpm, YWVD=135/50 mmhg, SpO2=98.0 %, Resp=14 B/min, Comment=SR 05:50 PM Pressure channel 1 zeroed. 05:50 PM Recorded Pressure: Ao, HR=87, Condition=Condition 1 (Aorta) Ao 66/43/54 05:51 PM RCA angiography performed in COMORAN. ejohnson 05:52 PM Catheter removed ejohnson 05:52 PM 5Fr LCB catheter inserted over the wire [id number] ejohnson 05:55 PM HR=77 bpm, NIBP=96/50 mmhg, SpO2=98.0 %, Resp=20 B/min, Comment=SR 05:55 PM Recorded Pressure: Ao, HR=79, Condition=Condition 1 (Aorta) Ao 75/43/59 05:56 PM SVG to the 1st OM angio performed in multiple views. ejohnson 05:56 PM Time: 17:56 0.9NaCl 200 ml Intravenous Given by Flori Marroquin RN Tinsley pump, given as a bolus-wide open ejohnson 05:57 PM Catheter removed ejohnson 05:57 PM 5Fr IM catheter inserted over the wire [id number] ejohnson 05:58 PM Recorded Pressure: Ao, HR=77, Condition=Condition 1 (Aorta) Ao 81/49/65 05:58 PM Time: 17:43LOC: 5 = Fully awake and oriented or at pre-proc level ejohnson 05:58 PM Time: 17:43 Patient comfortable and pain free: Yes ejohnson 05:58 PM Left NAZARIO to the LAD angio performed in multiple views. ejohnson 05:59 PM Catheter removed ejohnson 06:00 PM HR=81 bpm, NNIS=466/56 mmhg, SpO2=98.0 %, Resp=16 B/min, Comment=SR 06:03 PM Sheath exchanged for a 6 Fr 11 cm Cordis Allegra sheath [id number] ejohnson 06:04 PM Time: 18:04 Angiomax 0.75mg/kg bolus: 9 ml Intravenous Given by Flori Marroquin RN Tinsley pump ejohnson 06:04 PM Time: 18:04 Angiomax 1.75mg/kg/hr: 21 ml Intravenous Given by Flori Marroquin RN Tinsley pump ejohnson 06:05 PM HR=85 bpm, YBHC=263/59 mmhg, SpO2=99.0 %, Resp=16 B/min, Comment=SR 06:05 PM 6Fr XB LAD 3.5 Delmita Bright-Tip guide catheter was used to cannulate the PCI vessel successfully. reused? No ejohnson 06:05 PM Coronary Dominance: Left ejohnson 06:05 PM Lesion found in Mid Circumflex. Pre Stenosis: 90 Pre NILO Flow: 3: Complete and Brisk Flow/Perfusion ejohnson 06:05 PM Circumflex, Obtuse Marginal, Left Posterior Descending, and Left Posterolateral Coronary Arteries with 90 % stenosis. ejohnson 06:06 PM Recorded Pressure: Ao, HR=82, Condition=Condition 1 (Aorta) Ao 104/43/68 06:06 PM .014 Prowater 180cm guide wire across target lesion- successful. reused? No ejohnson 06:07 PM Inflation device was opened. ejohnson 06:07 PM 2.5 mm x 8 mm Trek Rx balloon across target lesion- successful. reused? No ejohnson 06:09 PM Balloon inflated @ 8 fredrick for 20 seconds ejohnson 06:09 PM Balloon inflated @ 10 fredrick for 20 seconds ejohnson 06:10 PM HR=83 bpm, PVLI=154/63 mmhg, SpO2=99.0 %, Resp=15 B/min, Comment=SR 06:11 PM Time: 17:58LOC: 4 = Oriented but drowsy ejohnson 06:11 PM Time: 17:58 Patient comfortable and pain free: Yes ejohnson 06:12 PM 3.5mm x 12mm Synergy drug-eluting stent across target lesion- successful Lot #[id number] ejohnson 06:13 PM Stent deployed @ 16 fredrick for 60 seconds ejohnson 06:14 PM Stent delivery system removed intact. ejohnson 06:15 PM HR=91 bpm, KVSE=772/69 mmhg, SpO2=99.0 %, Resp=18 B/min, Comment=SR 06:15 PM Time: 18:15 Nitroglycerin 200 mcg Intracoronary Given by Stefania Sorensen MD, [facility] ejohnson 06:16 PM Guide wire removed intact. ejohnson 06:16 PM Guide catheter removed intact. ejohnson 06:19 PM 6Fr LCB Runway guide catheter was used to cannulate the PCI vessel successfully. reused? No ejohnson 06:20 PM HR=86 bpm, ZCGV=562/62 mmhg, SpO2=98.0 %, Resp=18 B/min, Comment=SR 06:23 PM .014 Prowater 180cm guide wire across target lesion- successful. reused? Yes ejohnson 06:24 PM Time: 18:24 Versed 1 mg Intravenous Given by Flori Marroquin RN ejohnson 06:24 PM Time: 18:24 Fentanyl 25 mcg Intravenous Given by Flori Marroquin RN ejohnson 06:25 PM HR=74 bpm, XMGO=295/63 mmhg, SpO2=98.0 %, Resp=21 B/min, Comment=SR 06:26 PM Recorded Pressure: Ao, HR=80, Condition=Condition 1 (Aorta) Ao 105/49/73 06:26 PM Filter wire inserted to target lesion. ejohnson 06:30 PM HR=72 bpm, IYXU=732/64 mmhg, SpO2=98.0 %, Resp=13 B/min, Comment=SR 06:30 PM 2.5 mm x 8 mm Mini Trek Rx balloon across target lesion- successful. reused? Yes ejohnson 06:33 PM Balloon inflated @ 12 fredrick for 22 seconds ejohnson 06:34 PM Balloon inflated @ 12 fredrick for 25 seconds ejohnson 06:35 PM HR=69 bpm, TXEL=093/65 mmhg, SpO2=98.0 %, Resp=9 B/min, Comment=SR 06:35 PM Balloon catheter removed intact. ejohnson 06:36 PM 3.5mm x 38mm Synergy drug-eluting stent across target lesion- successful Lot #[id number] ejohnson 06:38 PM Recorded Pressure: Ao, HR=74, Condition=Condition 1 (Aorta) Ao 106/50/75 06:38 PM Stent removed intact. ejohnson 06:38 PM removed filter wire with retrieval device ejohnson 06:39 PM .014 ChoICE PT Extra Support 182cm guide wire across target lesion- successful. reused? No ejohnson 06:40 PM HR=85 bpm, XZDD=535/62 mmhg, QgT5=806.0 %, Resp=17 B/min, Comment=SR 06:43 PM Time: 18:43 Fentanyl 25 mcg Intravenous Given by Flori Marroquin RN ejohnson 06:44 PM stent reinserted ejohnson 06:45 PM HR=73 bpm, GFNL=689/59 mmhg, SpO2=99.0 %, Resp=22 B/min, Comment=SR 06:47 PM Stent deployed @ 16 fredrick for 30 seconds ejohnson 06:50 PM Stent delivery system removed intact. ejohnson 06:50 PM HR=72 bpm, LNRS=127/45 mmhg, SpO2=99.0 %, Resp=21 B/min, Comment=SR 06:50 PM 3.5mm x 20mm Synergy drug-eluting stent across target lesion- successful Lot #[id number] ejohnson 06:50 PM Time: 18:50 Patient comfortable and pain free: Yes ejohnson 06:50 PM Time: 18:50LOC: 5 = Fully awake and oriented or at pre-proc level ejohnson 06:52 PM Recorded Pressure: Ao, HR=74, Condition=Condition 1 (Aorta) Ao 98/53/75 06:53 PM Stent deployed @ 16 fredrick for 30 seconds ejohnson 06:54 PM Stent balloon reinflated @ 16 fredrick for 10 seconds ejohnson 06:55 PM HR=70 bpm, QSQW=663/65 mmhg, BkB9=197.0 %, Resp=17 B/min, Comment=SR 06:55 PM Time: 18:55 Nitroglycerin 200 mcg Intracoronary Given by Stefania Sorensen MD, [facility] ejohnson 06:56 PM Time: 18:56 Patient comfortable and pain free: Yes ejohnson 06:56 PM Time: 18:56LOC: 4 = Oriented but drowsy ejohnson 06:58 PM Stent delivery system removed intact. ejohnson 06:58 PM Guide wire removed intact. ejohnson 06:59 PM Guide catheter removed intact. ejohnson 06:59 PM Bolus angiogram of right Femoral complete: 2 ml/sec for a total of 4 mls ejohnson 07:00 PM Procedure completed at 19:00 ejohnson 07:00 PM HR=80 bpm, QXLY=067/64 mmhg, SpO2=97.0 %, Resp=16 B/min, Comment=SR 07:00 PM Sign out completed: Radiation Dose 516.38 mGy Fluoro Time: 24.2 Isovue 370 - 200ml contrast ml given by Stefania Sorensen MD, [facility]. Complications: NoneCardiac Rehab Consult needed: YesConfirmed administered medications: Yes ejohnson 07:00 PM Isovue 370 - 500ml,1 Bottle(s) used. ejohnson 07:00 PM Sheath left in place to be pulled on floor/holding area ejohnson 07:00 PM Estimated Blood Loss: minimal ejohnson 07:01 PM Post ECG NSR ejohnson 07:01 PM Post Blood Pressure 122/64 ejohnson 07:01 PM 19:01 Post Pulses Bilateral DP & PT 1+ ejohnson 07:01 PM Information taught PCI ejohnson 07:01 PM Education needs Plan of Care and Responsibilities of Patient in Care ejohnson 07:01 PM Learning barriers :None ejohnson 07:01 PM Education Methods Verbal ejohnson 07:01 PM Education evaluation Able to repeat information ejohnson 07:01 PM Site status No bleeding/hematoma - Rt Groin as reported by Emily Masterson RT (R) at 19:01 ejohnson 07:01 PM Opsite applied ejohnson 07:02 PM Time: 19:01 Plavix 300 mg Orally Given by Flori Marroquin RN ejohnson 07:05 PM HR=87 bpm, ECAR=348/74 mmhg, SpO2=99.0 %, Resp=24 B/min 07:11 PM Time: 18:56LOC: 5 = Fully awake and oriented or at pre-proc level ejohnson 07:11 PM Time: 18:56 Patient comfortable and pain free: Yes ejohnson 07:11 PM Time: 19:11LOC: 5 = Fully awake and oriented or at pre-proc level ejohnson 07:15 PM Report given to Caprice DUNN Pt taken to 2N Room #11. 19:14 ejohnson 07:15 PM Delay to floor Bed availability ejohnson 07:15 PM Patient out of room: 19:15 to holding room 3 ejohnson 07:15 PM Family placed in consult room. ejohnson 07:16 PM Lesion found in Proximal RCA. Pre Stenosis: 95 ejohnson 07:16 PM Right Coronary, Right Posterior Descending Arteries with Right Posterolateral and Acute Marginal branches with 95 % stenosis. ejohnson 07:17 PM Lesion found in Proximal LAD. Pre Stenosis: 100 ejohnson 07:17 PM Proximal Left Anterior Descending Coronary Artery with 100% stenosis. ejohnson 07:18 PM Lesion found in Proximal Circumflex. Pre Stenosis: 40 ejohnson 07:18 PM Lesion found in Distal Circumflex. Pre Stenosis: 40 ejohnson 07:19 PM Lesion found in Left PDA. Pre Stenosis: 50 ejohnson 07:19 PM Lesion found in Ramus. Pre Stenosis: 100 ejohnson 07:19 PM Ramus with 100% stenosis. ejohnson 07:39 PM Pt taken to 2N11 at this time. russell Complications Complication None Hemodynamics Pressures Site Systolic/A Wave Diastolic/V Wave Mean AO 73 48 60 AO 66 43 54 AO 75 43 59 AO 81 49 65 AO 104 43 68 AO 105 49 73 AO 106 50 75 AO 98 53 75 Post Procedure Information Blood Pressure: 122/64 mmHg Rhythm: NSR Post procedural instructions were given Site Checks Time Location Status Staff Sheath In? Note 07:01 PM Rt Groin No bleeding/hematoma Emily Masterson RT (R) 07:21 PM Rt Groin No bleeding/ No Hematoma Jackeline Ya RN Yes 07:38 PM Rt Groin No bleeding/ No Hematoma Jackeline Ya RN Yes Pulses Time Site Pre-Procedure Post-Procedure Note 7:01:00 PM Bilateral DP & PT 1+ 07/30/2017 7:22:00 PM Bilateral DP & PT 1+ 07/30/2017 7:38:00 PM Bilateral DP & PT 1+ Updated by Jackeline Ya RN on 07/30/2017 7:39:42 PM electronically signed on 07/30/2017 7:40:24 PM with status of Final
--- NOTE | 2017-07-30 22:20 | Electrocardiograph Report ---
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
--- NOTE | 2017-07-30 22:26 | Electrocardiograph Report ---
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
[2017-07-30] MEDS ORDERED: *HR* Atropine Sulfate 1 MG/10 ML SYRINGE ONE (22:33)
--- NOTE | 2017-07-31 06:51 | Electrocardiograph Report ---
[place] [address] Test Date: 2017-07-30 Pat Name: Mark Musa Department: 110 Room: 2N11 Gender: M [employer]ger: KAREN : 1940 Requested By: Stefania Sorensen Order Number: [id number] Reading MD: Stefania Sorensen Measurements Intervals [place] Rate: 86 P: 58 DE: 202 QRS: 32 QRSD: 96 T: 90 QT: 378 QTc: 422 Interpretive Statements SINUS RHYTHM WITH SINUS ARRHYTHMIA LOW QRS VOLTAGE IN EXTREMITY LEADS Electronically Signed On 07-31-2017 6:49:33 EST by Stefania Sorensen
[2017-07-31 07:05] LABS: Basophils % 0.4 %; Eosinophils # 0.1 K/mcL (0.0-0.6); Eosinophils % 0.9 %; Hematocrit 39.5 % (37.5-50.1); Hemoglobin 13.6 g/dL (12.9-16.9); Immature Granulocytes % 0.2 % (0-4); Lymphocytes # 0.8 K/mcL (0.6-4.6); Lymphocytes % 9.4 %; Mean Corpuscular HGB Conc 34.4 g/dL (31.6-35.5); Mean Corpuscular Volume 87.2 fL (83.0-100.0); Mean Platelet Volume 8.3 fL (9.4-12.4); Monocytes # 0.8 K/mcL (0.0-1.3); Monocytes % 10.1 %; Neutrophils # 6.4 K/mcL (1.6-8.9); Platelet Count 233 K/mcL (140-400); Red Blood Count 4.53 M/mcL (4.19-5.50)
[2017-07-31 07:09] LABS: BUN/Creatinine Ratio 17 (6-26); Blood Urea Nitrogen 17 mg/dL (8-26); Calcium 8.1 mg/dL (8.6-10.8); Carbon Dioxide 23 mEq/L (19-29); Chloride 101 mEq/L (98-109); Glucose 224 mg/dL (70-99); Magnesium 1.8 mg/dL (1.6-2.6); Osmolality,Calculated 283 (280-300); Phosphorous 2.9 mg/dL (2.3-4.7); Potassium 4.1 mEq/L (3.5-4.5); Sodium 132 mEq/L (136-145); eGFR For African Americans > 60 (> 60); eGFR For Non-African Americans > 60 (> 60)
[2017-07-31] MEDS: Ranolazine 500 MG TAB.ER.12H PO SCH ×2 (08:01→21:25)
[2017-07-31] MEDS: Diltiazem CD (24hr) 180 MG CAPSULE PO SCH (08:01)
[2017-07-31] MEDS: Aspirin Enteric Coated 81 MG Tablet PO SCH (08:01)
[2017-07-31] MEDS: Isosorbide MONOnitrate (24 HR) 60 MG TAB.ER.24H PO SCH (08:01)
[2017-07-31] MEDS: Insulin LISPRO 300 UNITS/3 ML VIAL SQ SCH ×4 (08:02→21:25)
--- NOTE | 2017-07-31 14:08 | Cardiology Progress Note ---
Date of Encounter: 07/31/17 Time of Encounter: 09:00 Assessment and Plan (1) Chest pain Current Visit: Yes Status: Acute Per cardiology: -Had chest pain s/p C yesterday with 100% ostial LAD INTRAOPERATIVE NEURO TECH, 40% in stent restenosis of proximal circumflex, 80% mid circumflex with MICHEL placed, 40% distal circ, 50% left PDA, 100% ramus INTRAOPERATIVE NEURO TECH, 80% proximal ramus, 95% proximal RCA , SVG to OM 1 with 20% in stent restenosis of distal portion and 50% ISR mid body of the graft and 80% proximal stenosis with MICHEL placed, DISLA to LAD patent. -ON asa. statin, plavix. -Educated on importance of dual anti-platelet therapy uninterrupted for at least one year. Patient states understanding. -Denies chest pain. -Right groin access site with mild ecchymosis no hematoma. -Of note, patient was having intermittent palpitations. Had recent Holter monitor, which showed SR, frequent PVCs. -Will start beta marilyn. Will decrease losartan dose due allow BP room for beta marilyn. Patient encouraged to monitro HR, BP, and symptoms at home and to bring log to his cardiology appointment. -Cardiology will sign off and will follow in outpatient setting. Follow up set. Qualifiers: Chest pain type: other chest pain Qualified Code(s): R07.89 - Other chest pain; R07.8 - Other chest pain Discussion w patient/family: The assessment and plan as outlined above was discussed with the patient who expressed understanding and agreement. All questions were answered. Thank you for involving us in the care of your patient. Please call with any questions. Discussed and reviewed with . Subjective Principal diagnosis: chest pain Interval history: Patient states he feels the best he has in a long time. Patient admits to some intermittent palpitations, however states they are improved. Objective Vital Signs, Last 4 Hours Temp Pulse Resp BP Pulse Ox 07/31/17 11:00 97.6 F 78 16 101/52 94 General: Conversant, No Apparent Distress HEENT: Atraumatic, Normocephaly, Mucus Membranes Moist Neck: No JVD, Normal carotid pulses Cardiac: Reg Rate and Rhythm, Normal S1 and S2, No Murmur Lungs: Normal Breath Sounds, No Wheeze, Rales, Rhonchi Neuro: Alert and responsive, No focal deficits noted Abdomen: Soft, Non-Tender Skin: No rashes noted on visualized skin, Other (Right groin access site with mild ecchymosis, no hematoma. ) Musculoskeletal: No Chest Wall Tenderness Extremities: No Clubbing, No Cyanosis, No Edema, Normal Pulses Results 07/31/17 06:27 07/31/17 06:27 Lab Results Active Medications Aspirin (Aspirin Ec) 81 mg PO DAILY [facility] Stop: 01/29/18 09:01 Last Admin: 07/31/17 08:01 Dose: 81 mg Atorvastatin Calcium (Lipitor) 40 mg PO HS [facility] Stop: 01/29/18 21:01 Last Admin: 07/30/17 23:20 Dose: 40 mg Clopidogrel Bisulfate (Plavix) 75 mg PO DAILY [facility] Stop: 01/29/18 09:01 Last Admin: 07/31/17 08:01 Dose: 75 mg Dextrose/Water (Dextrose 50% (Syg)) 25 ml IVP AD PRN PRN Reason: Hypoglycemia Stop: 01/28/18 21:05 Diltiazem HCl (Cardizem Cd) 180 mg PO DAILY [facility] Stop: 01/29/18 09:01 Last Admin: 07/31/17 08:01 Dose: 180 mg Glucagon (Glucagen) 1 mg IM ONCE PRN PRN Reason: Hypoglycemia Stop: 01/28/18 21:05 Glucose (Gluctose) 15 gm PO ONCE PRN PRN Reason: Hypoglycemia Stop: 01/28/18 21:05 Glucose (Gluctose) 30 gm PO ONCE PRN PRN Reason: Hypoglycemia Stop: 01/28/18 21:05 Hydralazine HCl (Hydralazine) 10 mg IVP Q6HR PRN PRN Reason: Hypertension Stop: 01/28/18 21:41 Dextrose (Dextrose 5%) 1,000 mls @ 100 mls/hr IVC .Q10H PRN PRN Reason: HYPOGLYCEMIA Stop: 01/28/18 21:05 Insulin Human Lispro (Humalog) 0 units SQ HS [facility] PRN Reason: Protocol Stop: 01/28/18 21:01 Last Admin: 07/30/17 19:56 Dose: Not Given Insulin Human Lispro (Humalog) 0 units SQ TIDAC [facility] PRN Reason: Protocol Stop: 01/29/18 07:31 Last Admin: 07/31/17 11:28 Dose: 2 units Isosorbide Mononitrate (Imdur) 120 mg PO DAILY [facility] Stop: 01/29/18 09:01 Last Admin: 07/31/17 08:01 Dose: 120 mg Losartan Potassium (Cozaar) 25 mg PO DAILY UNIQUE PRN Reason: Protocol Stop: 01/31/18 09:01 Metoprolol Succinate (Toprol Xl) 25 mg PO DAILY [facility] Stop: 01/31/18 09:01 Morphine Sulfate (Morphine Sulfate) 2 mg IVP Q4HR PRN PRN Reason: Chest Pain Stop: 01/28/18 21:05 Last Admin: 07/30/17 20:32 Dose: 2 mg Naloxone HCl (Narcan) 0.4 mg IVP Q2MIN PRN PRN Reason: Opioid Reversal Stop: 01/28/18 21:05 Nitroglycerin (Nitroglycerin) 0.4 mg SL Q5M PRN PRN Reason: Chest Pain Stop: 01/28/18 21:08 Last Admin: 07/30/17 13:39 Dose: 0.4 mg Omeprazole (Prilosec) 20 mg PO DAILY [facility] Stop: 01/29/18 09:01 Last Admin: 07/31/17 08:01 Dose: 20 mg Ranolazine (Ranexa) 500 mg PO BID [facility] Stop: 01/29/18 09:01 Last Admin: 07/31/17 08:01 Dose: 500 mg Tamsulosin HCl (Flomax) 0.4 mg PO DAILY UNIQUE PRN Reason: Protocol Stop: 01/29/18 09:01 Last Admin: 07/31/17 08:01 Dose: 0.4 mg Laboratory Tests 07/31/17 07/31/17 06:27 06:27 Hgb 13.6 Potassium 4.1 Creatinine 0.99 - Imaging and Cardiology Chest Xray: report reviewed Cardiac cath: report reviewed - EKG Interpretation EKG results cardiology: other (Telemetry reviewed with average HR previous 12 hours noted to be 79, sinus rhythm. PVCs and PACs noted.) - VTE Reasons for not Prescribing Prophylaxis: Not indicated-Anticoagulated or INR therapeutic Documentation of Mechanical Device: Graduated compression elastic hosiery Consult Discharge Plan - Plan Referrals: Teetee Cisneros CNP [Primary Care Provider] - 08/08/17 3:30 pm
--- NOTE | 2017-07-31 16:34 | Internal Med Progress Note ---
Date of Encounter: 07/31/17 Time of Encounter: 15:05 - Assessment and plan (1) Chest pain Current Visit: Yes Status: Acute Assessment and plan: Cardiology on board and consultation appreciated s/p [facility] with MICHEL placement started on ASA, Plavix, BB, ARB, statin chest pain free at this time likely d/c in am Qualifiers: Chest pain type: other chest pain Qualified Code(s): R07.89 - Other chest pain; R07.8 - Other chest pain (2) CAD (coronary artery disease) Current Visit: Yes Status: Chronic Assessment and plan: as listed above Qualifiers: Coronary Disease-Associated Artery/Lesion type: bypass graft [place] vs. transplanted heart: [place] heart Associated angina: with stable angina Qualified Code(s): I25.708 - Atherosclerosis of coronary artery bypass graft(s) , unspecified, with other forms of angina pectoris (3) Palpitations Current Visit: Yes Status: Resolved (4) Diabetes mellitus Current Visit: Yes Status: Chronic Assessment and plan: continue sliding scale insulin algorithm monitor FS and BG ADA diet Qualifiers: Diabetes mellitus type: type 2 Diabetes mellitus complication status: without complication Diabetes mellitus correction insulin use: with correction use Qualified Code(s): E11.9 - Type 2 diabetes mellitus without complications ; Z79.4 - terminal make up operator (current) use of insulin; Z79.4 - [facility] (current) use of insulin; Z79.4 - [facility] (current) use of insulin; Z79.4 - terminal make up operator ( current) use of insulin (5) DVT prophylaxis Current Visit: Yes Status: Acute Assessment and plan: Heparin SQ (6) HTN (hypertension) Current Visit: Yes Status: Chronic Assessment and plan: BP within acceptable range continue home meds Qualifiers: Hypertension type: essential hypertension Qualified Code(s): I10 - Essential (primary) hypertension - Subjective Interval history: Patient seen and examined at bedside. Resting in bed, s/p [facility] with MICHEL placement. pt tolerated the procedure well and is chest pain free at this time. Cardiology added BB however first dose yet to be given. Pt denies any discomfort at this time. Likely d/c in am if remains clinically asymptomatic - Constitutional Vitals: Temp Pulse Resp BP Pulse Ox 98.3 F 70 17 130/70 96 07/31/17 16:22 07/31/17 16:22 07/31/17 16:22 07/31/17 16:22 07/31/17 16:22 General appearance: Present: cooperative, A&O X 3, pleasant, no acute distress, answers questions appropriately - Head Head exam: Present: atraumatic, normocephalic - Eye Eye exam: Present: conjuntiva pink, sclera anicteric - Respiratory Respiratory exam: Present: CTAB. Absent: respiratory distress, wheezes - Cardiovascular Cardiovascular exam: Present: RRR, +S1, +S2. Absent: diastolic murmur, gallop, rubs, systolic murmur - GI/Abdominal GI/Abdominal exam: Present: normal bowel sounds, soft, no peritoneal signs. Absent: distended, tenderness - Extremities Exam Extremities exam: Present: warm, radial pulses palpable and symmetrical. Absent : calf tenderness, cyanotic, pedal edema - Neurological Exam Neurological exam: Present: alert, oriented X3 - Psychiatric Psychiatric exam: Present: normal affect, normal mood Internal Medicine: Result - Labs CBC & Chem 7: 07/31/17 06:27 07/31/17 06:27 Labs: Short CBC 07/31/17 Range/Units 06:27 WBC 8.1 (4.3-11.1) K/mcL Hgb 13.6 (12.9-16.9) g/dL Hct 39.5 (37.5-50.1) % Plt Count 233 (140-400) K/mcL Neutrophils # 6.4 (1.6-8.9) K/mcL BMP 07/31/17 06:27 Sodium 132 L Potassium 4.1 Chloride 101 Carbon Dioxide 23 BUN 17 Creatinine 0.99 Glucose 224 H Calcium 8.1 L - ABG Interpretation ABG results: PT/INR, D-dimer PT 11.2 Seconds (9.4-12.1) 07/30/17 05:29 - VTE Reasons for not Prescribing Prophylaxis: Not indicated-Anticoagulated or INR therapeutic Documentation of Mechanical Device: Graduated compression elastic hosiery Consult Discharge Plan - Plan Referrals: Teetee Cisneros CNP [Primary Care Provider] - 08/08/17 3:30 pm
[2017-07-31] MEDS: *HR* Heparin 5,000 UNIT/ML VIAL SQ SCH ×2 (17:13→21:29)
[2017-08-01 04:34] LABS: Basophils % 0.4 %; Eosinophils # 0.2 K/mcL (0.0-0.6); Eosinophils % 3.1 %; Hematocrit 38.1 % (37.5-50.1); Hemoglobin 13.5 g/dL (12.9-16.9); Immature Granulocytes % 0.3 % (0-4); Lymphocytes % 13.1 %; Mean Corpuscular HGB Conc 35.4 g/dL (31.6-35.5); Mean Corpuscular Hemoglobin 30.9 pg (28.0-33.3); Mean Corpuscular Volume 87.2 fL (83.0-100.0); Mean Platelet Volume 8.4 fL (9.4-12.4); Monocytes # 0.8 K/mcL (0.0-1.3); Neutrophils # 5.4 K/mcL (1.6-8.9); Platelet Count 216 K/mcL (140-400); Red Blood Count 4.37 M/mcL (4.19-5.50); Red Cell Distribution Width 11.8 % (11.5-14.5); Segmented Neutrophils % 72.1 %
[2017-08-01 04:44] LABS: BUN/Creatinine Ratio 16 (6-26); Blood Urea Nitrogen 17 mg/dL (8-26); Calcium 8.3 mg/dL (8.6-10.8); Carbon Dioxide 22 mEq/L (19-29); Chloride 99 mEq/L (98-109); Glucose 183 mg/dL (70-99); Magnesium 1.8 mg/dL (1.6-2.6); Osmolality,Calculated 278 (280-300); Phosphorous 2.9 mg/dL (2.3-4.7); Potassium 4.1 mEq/L (3.5-4.5); Sodium 131 mEq/L (136-145); eGFR For African Americans > 60 (> 60); eGFR For Non-African Americans > 60 (> 60)
[2017-08-01] MEDS: Insulin LISPRO 300 UNITS/3 ML VIAL SQ SCH ×2 (07:52→11:50)
[2017-08-01] MEDS: Isosorbide MONOnitrate (24 HR) 60 MG TAB.ER.24H PO SCH (07:58)
[2017-08-01] MEDS: Ranolazine 500 MG TAB.ER.12H PO SCH (07:58)
[2017-08-01] MEDS: Aspirin Enteric Coated 81 MG Tablet PO SCH (07:58)
[2017-08-01] MEDS: Diltiazem CD (24hr) 180 MG CAPSULE PO SCH (07:59)
[2017-08-01] MEDS ORDERED: Metoprolol XL (24 HR) Succ 25 MG TAB.ER.24H PO SCH (09:00)
[2017-08-01 10:58] VITALS: BP 119/69
--- NOTE | 2017-08-01 12:36 | Discharge Summary ---
Date of Encounter: 08/01/17 Time of Encounter: 12:32 - Discharge Diagnosis (1) Chest pain Priority: Primary Status: Resolved Qualifiers: Chest pain type: other chest pain Qualified Code(s): R07.89 - Other chest pain; R07.8 - Other chest pain (2) CAD (coronary artery disease) Priority: Secondary Status: Chronic Qualifiers: Coronary Disease-Associated Artery/Lesion type: bypass graft [place] vs. transplanted heart: [place] heart Associated angina: with stable angina Qualified Code(s): I25.708 - Atherosclerosis of coronary artery bypass graft(s) , unspecified, with other forms of angina pectoris (3) Palpitations Priority: Primary Status: Resolved (4) Diabetes mellitus Priority: Secondary Status: Chronic Qualifiers: Diabetes mellitus type: type 2 Diabetes mellitus complication status: without complication Diabetes mellitus senior care insulin use: with senior care use Qualified Code(s): E11.9 - Type 2 diabetes mellitus without complications ; Z79.4 - group home (current) use of insulin; Z79.4 - long term care administrator (current) use of insulin; Z79.4 - long term care administrator (current) use of insulin; Z79.4 - long term care administrator ( current) use of insulin (5) DVT prophylaxis Priority: Secondary Status: Acute (6) HTN (hypertension) Priority: Secondary Status: Chronic Qualifiers: Hypertension type: essential hypertension Qualified Code(s): I10 - Essential (primary) hypertension - Discharge Medications Prescriptions: Losartan [Cozaar] 25 mg PO DAILY #30 tablet Metoprolol XL (24 HR) Succ [Toprol Xl] 25 mg PO DAILY #30 tab.er.24h Home Medications: Aspirin Enteric Coated [Aspirin EC] 81 mg PO DAILY 03/19/16 [History] Atorvastatin [Lipitor] 40 mg PO HS 03/19/16 [History] Clopidogrel [Plavix] 75 mg PO DAILY 03/19/16 [History] Insulin NPH Hum/Reg Insulin Hm [Novolin 70-30 100 Unit/ml Vial] 8 - 12 unit SQ BID 03/19/16 [History] Isosorbide MONOnitrate [Isosorbide Mononitrate ER] 120 mg PO DAILY 03/19/16 [ History] Nitroglycerin [Nitrostat] 0.4 mg SL Q5M PRN 03/19/16 [History] Tamsulosin [Flomax] 0.4 mg PO DAILY 03/19/16 [History] Ranolazine [Ranexa] 500 mg PO BID #60 tab.er.12h 03/20/16 [Rx] Pantoprazole Sodium [Protonix] 40 mg PO DAILY 06/10/17 [History] Diltiazem CD (24hr) [Cardizem CD] 180 mg PO DAILY 07/29/17 [History] Losartan [Cozaar] 25 mg PO DAILY #30 tablet 08/01/17 [Rx] Metoprolol XL (24 HR) Succ [Toprol Xl] 25 mg PO DAILY #30 tab.er.24h 08/01/17 [ Rx] Allergies/Adverse Reactions: 3 Allergy/AdvReac Type Severity Reaction Status Date / Time lisinopril AdvReac Cough Verified 07/29/17 12:09 Procedures/tests Complete & Pending: Procedures Performed prior 72 hours Category Date Time Status CL Cardiac Catheterization [CL] Routine [employer] 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 Teacher 07/30/17 11:54 Completed ECG 12 lead ECG [ECG] Routine Y 07/30/17 10:15 Completed ECG 12 lead ECG [ECG] Stat Y 07/30/17 19:12 Completed EKG [ECG 12 lead ECG] [ECG] Stat Y 07/30/17 13:32 Completed Date of admission: 07/29/17 16:33 Primary care physician: Teetee Cisneros CNP Consults: 07/30/17 08:34 Consult to Cardiology [CONS] Stat Comment: Consulting Provider: Cardiology Muna Reason for Consult: chest pain with extensive cardiac history Call Completed: Yes 07/30/17 19:13 Consult to Cardiac Rehabilitation-Phase1 [CONS] Routine Comment: Reason for Consult: CAD s/p PCI Call Completed: Yes Discharging clinician: Kristin Hall Anticipated date of discharge: 08/01/17 - Patient Status Disposition: Home, Self-Care Condition: Good Functional capacity at discharge: independent ambulation Overall status at discharge: patient is back to baseline - Discharge Instructions Follow Up With: Teetee Cisneros CNP [Primary Care Provider] - 08/08/17 3:30 pm Additional Instructions: Please follow up with your primary care physician and resident care technician within one week after your discharge from the hospital. Your home medications have been changed as follows: 1. Metoprolol 25mg once a day has been added 2. Losartan has been decreased to 25mg once a day. 3. Continue to take Aspirin, Plavix, and Lipitor. Resume all other medications as prescribed by your primary care physician. Please seek medical help immediately, if chest pain recurs. - Diet and Activity Activity: as per the cardiac rehab Diet: diabetic diet, low fat, low cholesterol, low salt diet Hospital course: Mr. Musa is a 77 year old male with PMH of DM, HTN, HLD, CAD who was admitted for chest pain. Pt had recently had a stress test that was negative for ischemic perfusion defects, but continued to have persistent chest pain due to which cardiology took the patient for [facility] [place]. [facility] [place] triple vessel CAD and had a successful PTCA/MICHEL placement in the mid Circ and SVG to 1s OM. He is to be continued on ASA and plavix. HIs home dose of Losartan was decreased and BB was added. Pt responded appropriately to this change and is currently hemodynamically stable and will be discharged to home with follow up with PCP and cardiology. - Time Spent with Patient Total time spent providing and/or coordinating discharge services: Less than 30 minutes - Constitutional Vitals: Temp Pulse Resp BP Pulse Ox 98.3 F 76 16 119/69 97 08/01/17 10:57 08/01/17 10:57 08/01/17 10:57 08/01/17 10:57 08/01/17 10:57 General appearance: Present: cooperative, A&O X 3, pleasant, no acute distress, answers questions appropriately - Head Head exam: Present: atraumatic, normocephalic - Eye Eye exam: Present: conjuntiva pink, sclera anicteric - Respiratory Respiratory exam: Present: CTAB. Absent: accessory muscle use, rales, rhonchi, wheezes - Cardiovascular Cardiovascular exam: Present: RRR, +S1, +S2. Absent: diastolic murmur, gallop, rubs, systolic murmur - GI/Abdominal GI/Abdominal exam: Present: normal bowel sounds, soft, no peritoneal signs. Absent: distended, tenderness - Extremities Exam Extremities exam: Present: warm, radial pulses palpable and symmetrical. Absent : calf tenderness, cyanotic, pedal edema - Neurological Exam Neurological exam: Present: alert, oriented X3 - Psychiatric Psychiatric exam: Present: normal affect, normal mood - VTE Reasons for not Prescribing Prophylaxis: Not indicated-Anticoagulated or INR therapeutic Documentation of Mechanical Device: Graduated compression elastic hosiery
== END 2017-08-01 14:45 | disposition home or self-care (01) ==
LOC: 2NENU 12:04 → EMEROO 12:04 → SUATTDRO 16:33 → 2NENU 17:02 → 2NNU 07-30 18:14
PROVIDERS: ADMIT Internal Medicine; ATTEND Internal Medicine

== ENCOUNTER 2018-01-06 15:09 | Observation (INO) ==
--- NOTE | 2018-01-06 15:26 | Emergency Department Note ---
Disposition Clinical Impression: ACS (acute coronary syndrome) Disposition: Admitted As Inpatient Condition: Good General Adult HPI - General Chief complaint: ED Chest Pain Stated complaint: CP Time Seen by Provider: 01/06/18 15:16 Source: patient, EMS Limitations: no limitations - History of Present Illness Pain Scale: 3 - Related Data Home Medications Medication Instructions Recorded Confirmed Aspirin Enteric Coated [Aspirin EC] 81 mg PO DAILY 03/19/16 07/29/17 Atorvastatin [Lipitor] 40 mg PO HS 03/19/16 07/29/17 Clopidogrel [Plavix] 75 mg PO DAILY 03/19/16 07/29/17 Insulin NPH Hum/Reg Insulin Hm 8 - 12 unit SQ BID 03/19/16 07/29/17 [Novolin 70-30 100 Unit/ml Vial] Isosorbide MONOnitrate [Isosorbide 120 mg PO DAILY 03/19/16 07/29/17 Mononitrate ER] Nitroglycerin [Nitrostat] 0.4 mg SL Q5M PRN 03/19/16 07/29/17 Tamsulosin [Flomax] 0.4 mg PO DAILY 03/19/16 07/29/17 Pantoprazole Sodium [Protonix] 40 mg PO DAILY 06/10/17 07/29/17 Diltiazem CD (24hr) [Cardizem CD] 180 mg PO DAILY 07/29/17 07/29/17 Previous Rx's Medication Instructions Recorded Ranolazine [Ranexa] 500 mg PO BID #60 tab.er.12h 03/20/16 Losartan [Cozaar] 25 mg PO DAILY #30 tablet 08/01/17 Metoprolol XL (24 HR) Succ [Toprol 25 mg PO DAILY #30 tab.er.24h 08/01/17 Xl] Allergies Allergy/AdvReac Type Severity Reaction Status Date / Time lisinopril AdvReac Cough Verified 07/29/17 12:09 Past Medical History - Past Medical History Medical history: Reports: coronary artery disease, diabetes, hyperlipidemia, hypertension, myocardial infarction Surgical history: Reports: cataract, coronary bypass (CABG) Psychiatric history: Reports: no psych history - Social History Smoking Status: Never smoker Smokeless Tobacco Status: No Alcohol use: Reports: none Drug use: Reports: none Physical Exam - General Limitations: no limitations General appearance: alert Course - Reevaluation(s) Reevaluation #1: Attestation Note I examined this patient and my medical decision-making was reviewed with the Resident Physician, DANNI PÉREZ. I agree with the documented findings, disposition and treatment plan as described except to the extent set forth below. I have personally performed a face to face evaluation on this patient. I have reviewed and agree with the care plan. Briefly: 77-year-old male history of multiple stents and bypass because of the chest pain resolved with nitroglycerin in the typical distribution for his anginal attacks. EKG shows no acute ischemic changes troponin and chest x-ray pending with admission anticipated. Patient got aspirin by EMS. Admission disposition pending Time: 15:24 Vital Signs Temperature 98.0 F 01/06/18 15:13 Pulse Rate 71 01/06/18 15:13 Respiratory Rate 14 01/06/18 15:13 Blood Pressure 140/107 01/06/18 15:13 O2 Sat by Pulse Oximetry 96 01/06/18 15:13 Temperature 98.0 F 01/06/18 15:13 Pulse Rate 71 01/06/18 15:13 Respiratory Rate 14 01/06/18 15:13 Blood Pressure 140/107 01/06/18 15:13 O2 Sat by Pulse Oximetry 96 01/06/18 15:13 Oxygen Delivery Oxygen Delivery Room Air
--- NOTE | 2018-01-06 15:26 | Emergency Department Note ---
Disposition Clinical Impression: Chest pain Qualifiers: Chest pain type: unspecified Qualified Code(s): R07.9 - Chest pain, unspecified Disposition: Admitted As Inpatient Condition: Good Chest Pain HPI - General Chief Complaint: ED Chest Pain Stated Complaint: CP Time Seen by Provider: 01/06/18 15:16 Source: patient, EMS Mode of arrival: EMS Limitations: no limitations Vital Signs Reviewed: Yes Nursing Notes Reviewed: Yes - History of Present Illness HPI Narrative: 77-year-old male past medical history of 2 double bypass procedures in the s, 600 stents most recently in July 2017, hypertension, diabetes, hyperlipidemia who presents to the ER via EMS due to chest pain. Patient states he developed pressure roughly 1 hour prior to arrival. Reports diaphoresis as well as dyspnea. States that he took 2 nitroglycerin with some relief and called EMS. He received an additional nitroglycerin in route. Reports improvement of his symptoms after the nitroglycerin. He was given aspirin prior to arrival as well. He denies any recent illnesses. States his blood pressure has been labile recently despite adjustment of his medications as well as palpitations. No other complaints. Pt complaint: chest pain Onset (ago): Just TORCH CUTTER Time: 14:30 Duration: constant Onset: during rest Pain Location: substernal Severity: mild Severity scale (1-10): 3 Quality: heaviness Pain Radiation: none Improves with: nitroglycerin Associated symptoms: Reports: diaphoresis, dyspnea Treatments prior to arrival chest pain: aspirin, nitroglycerin - Related Data On Oral Contraceptives: No Home Medications Medication Instructions Recorded Confirmed Aspirin Enteric Coated [Aspirin EC] 81 mg PO DAILY 03/19/16 01/06/18 Atorvastatin [Lipitor] 40 mg PO HS 03/19/16 01/06/18 Clopidogrel [Plavix] 75 mg PO DAILY 03/19/16 01/06/18 Insulin NPH Hum/Reg Insulin Hm 8 - 12 unit SQ BID 03/19/16 01/06/18 [Novolin 70-30 100 Unit/ml Vial] Isosorbide MONOnitrate [Isosorbide 120 mg PO DAILY 03/19/16 01/06/18 Mononitrate ER] Nitroglycerin [Nitrostat] 0.4 mg SL Q5M PRN 03/19/16 01/06/18 Tamsulosin [Flomax] 0.4 mg PO DAILY 03/19/16 01/06/18 Pantoprazole Sodium [Protonix] 40 mg PO DAILY 06/10/17 01/06/18 Diltiazem CD (24hr) [Cardizem CD] 180 mg PO DAILY 07/29/17 01/06/18 Losartan Potassium [Cozaar] 50 mg PO DAILY 01/06/18 01/06/18 Previous Rx's Medication Instructions Recorded Ranolazine [Ranexa] 500 mg PO BID #60 tab.er.12h 03/20/16 Metoprolol XL (24 HR) Succ [Toprol 25 mg PO DAILY #30 tab.er.24h 08/01/17 Xl] Allergies Allergy/AdvReac Type Severity Reaction Status Date / Time lisinopril AdvReac Cough Verified 07/29/17 12:09 All systems ED: reviewed and negative except as stated. Constitutional: Denies: fever Cardiovascular: Reports: chest pain, palpitations Respiratory: Reports: dyspnea. Denies: cough Gastrointestinal: Denies: abdominal pain, nausea, vomiting Chest Pain PMH - Past Medical History Medical history: Reports: coronary artery disease, diabetes, hyperlipidemia, hypertension, myocardial infarction Surgical history: Reports: cataract, coronary bypass (CABG) Psychiatric history: Reports: no psych history - Social History Smoking Status: Never smoker Alcohol use: Reports: none Drug use: Reports: none Physical Exam - General Limitations: no limitations General appearance: alert, in no apparent distress - Head Head exam: atraumatic, normocephalic - Eye Eye exam: Present: normal appearance - ENT ENT exam: normal exam - Neck Neck exam: Present: normal inspection, full ROM - Chest Chest inspection: Present: normal inspection, symmetric chest wall rise - Respiratory Respiratory exam: Present: normal lung sounds bilaterally - Cardiovascular Cardiovascular exam: Present: regular rate, normal rhythm, normal heart sounds - Abdominal Exam Abdominal exam: Present: soft, Non-Tender. Absent: tenderness - Extremities Exam Extremities exam: Present: normal inspection, full ROM - Expanded Upper Extremity Exam Shoulder exam: Present: normal inspection, full ROM Arm exam: Present: normal inspection, full ROM Elbow exam: Present: normal inspection, full ROM Forearm/Wrist exam: Present: normal inspection, full ROM Hand exam: Present: normal inspection, full ROM - Expanded Lower Extremity Exam Hip/Pelvis exam: Present: normal inspection, full ROM Upper leg exam: Present: normal inspection, full ROM Knee exam: Present: normal inspection, full ROM Lower leg exam: Present: normal inspection, full ROM Ankle exam: Present: normal inspection, full ROM Foot/toe exam: Present: normal inspection, full ROM - Skin Skin exam: Present: warm, dry Course Course Narrative: Patient seen and examined. Vital signs reviewed. EKG, chest x-ray as well as labs including troponin. Admit for chest pain evaluation. - Consultations Consultation #1: Spoke with the on-call legislative assistant at the request of the hospitalist. Discussed patient's history EKG imaging and findings. Agree with consultation. Vital Signs Temperature 98.0 F 01/06/18 15:13 Pulse Rate 71 01/06/18 15:13 Respiratory Rate 14 01/06/18 15:13 Blood Pressure 140/107 01/06/18 15:13 O2 Sat by Pulse Oximetry 96 01/06/18 15:13 Temperature 98.0 F 01/06/18 15:13 Pulse Rate 71 01/06/18 15:13 Respiratory Rate 14 01/06/18 17:03 Blood Pressure 160/84 01/06/18 17:03 O2 Sat by Pulse Oximetry 96 01/06/18 15:13 Oxygen Delivery Oxygen Delivery Room Air Chest Pain - MDM Narrative Medical decision making narrative: 77-year-old male with chest pain just prior to arrival. Extensive cardiac history with stents most recently placed late last year. EKG without ischemic findings. Chest x-ray no acute abnormality with the exception of a right elevated hemidiaphragm. Initial troponin within normal limits. Given 3 nitroglycerin and aspirin. Admitted for chest pain rule out. - Lab Data Lab results reviewed: Yes I reviewed the patient's lab results. Result diagrams: 01/06/18 15:39 01/06/18 15:39 Lab Results 01/06/18 01/06/18 01/06/18 Range/Units 15:39 15:39 15:39 WBC 6.9 (4.3-11.1) K/mcL RBC 4.37 (4.19-5.50) M/mcL Hgb 13.9 (12.9-16.9) g/dL Hct 38.5 (37.5-50.1) % MCV 88.1 (83.0-100.0) fL MCH 31.8 (28.0-33.3) pg MCHC 36.1 H (31.6-35.5) g/dL RDW 11.7 (11.5-14.5) % Plt Count 218 (140-400) K/mcL MPV 8.6 L (9.4-12.4) fL Immature Gran % 0.4 (0-4) % Seg Neutrophils % 79.8 % Lymphocytes % 9.0 % Monocytes % 8.7 % Eosinophils % 1.7 % Basophils % 0.4 % Neutrophils # 5.5 (1.6-8.9) K/mcL Lymphocytes # 0.6 (0.6-4.6) K/mcL Monocytes # 0.6 (0.0-1.3) K/mcL Eosinophils # 0.1 (0.0-0.6) K/mcL Basophils # 0.0 (0.0-0.2) K/mcL PT 10.9 (9.4-12.1) Seconds INR 1.0 APTT 25.9 L (26.0-36.0) Seconds Sodium (136-145) mEq/L Potassium (3.5-5.1) mEq/L Chloride (98-107) mEq/L Carbon Dioxide (23-29) mEq/L BUN (8-23) mg/dL Creatinine (0.70-1.30) mg/dL Est GFR ( Amer) (> 60) Est GFR (Non-Af Amer) (> 60) BUN/Creatinine Ratio (6-26) Glucose (70-105) mg/dL Calculated Osmolality (280-300) Calcium (8.6-10.3) mg/dL Troponin I (< 0.04) ng/mL B-Natriuretic Peptide 90 (Less than 100) pg/mL 01/06/18 Range/Units 15:39 WBC (4.3-11.1) K/mcL RBC (4.19-5.50) M/mcL Hgb (12.9-16.9) g/dL Hct (37.5-50.1) % MCV (83.0-100.0) fL MCH (28.0-33.3) pg MCHC (31.6-35.5) g/dL RDW (11.5-14.5) % Plt Count (140-400) K/mcL MPV (9.4-12.4) fL Immature Gran % (0-4) % Seg Neutrophils % % Lymphocytes % % Monocytes % % Eosinophils % % Basophils % % Neutrophils # (1.6-8.9) K/mcL Lymphocytes # (0.6-4.6) K/mcL Monocytes # (0.0-1.3) K/mcL Eosinophils # (0.0-0.6) K/mcL Basophils # (0.0-0.2) K/mcL PT (9.4-12.1) Seconds INR APTT (26.0-36.0) Seconds Sodium 127 L (136-145) mEq/L Potassium 4.5 (3.5-5.1) mEq/L Chloride 97 L (98-107) mEq/L Carbon Dioxide 24 (23-29) mEq/L BUN 19 (8-23) mg/dL Creatinine 1.01 (0.70-1.30) mg/dL Est GFR ( Amer) > 60 (> 60) Est GFR (Non-Af Amer) > 60 (> 60) BUN/Creatinine Ratio 19 (6-26) Glucose 321 H (70-105) mg/dL Calculated Osmolality 279 L (280-300) Calcium 8.4 L (8.6-10.3) mg/dL Troponin I < 0.03 (< 0.04) ng/mL B-Natriuretic Peptide (Less than 100) pg/mL - Radiology Data Radiology results reviewed: Yes I reviewed the patient's radiology results. Chest X-Ray 01/06/18 15:17 IMPRESSION: No acute process. Nonspecific increased elevation of right hemidiaphragm. D/ / 01/06/2018 15:47:33 Renato Frazier MD / jerry Interpreting Provider: Renato Frazier MD - EKG Data EKG attestation: Yes I reviewed and interpreted this EKG. EKG results narrative: EKG demonstrates sinus rhythm with a rate of 76 bpm. Normal axis. Normal intervals. Normal R-wave progression. No gross ST elevations or depressions. No acute ischemic findings. No significant changes from previous EKG dated 07/30. Heart Score - Score History: Moderately Suspicious EKG: Normal Age: Greater than 65 Risk Factors: Equal/Greater than 3 risk factor or history of atherosclerotic disease Troponin: Less than normal limit HEART Score Total: 5 S.B.A.R. - Kurt Situation: Demographics, MOA Background: Presenting Complaint, Relevant PMH, Meds, & Allergies Assessment: Course and respsone to treatment, Exam Concerns, Patient/Family Expectation, Pertinant Lab Results Recommendation: Barrier(s) to disposition, Recommendation based on pending studies, treatments, or consults STeresa Report Given to: Dr. Aracelis Hicks Repor Time: 16:43 (Requests cardiology consultation)
[2018-01-06 16:04] LABS: Basophils % 0.4 %; Eosinophils # 0.1 K/mcL (0.0-0.6); Eosinophils % 1.7 %; Hematocrit 38.5 % (37.5-50.1); Hemoglobin 13.9 g/dL (12.9-16.9); Immature Granulocytes % 0.4 % (0-4); Lymphocytes # 0.6 K/mcL (0.6-4.6); Mean Corpuscular HGB Conc 36.1 g/dL (31.6-35.5); Mean Corpuscular Hemoglobin 31.8 pg (28.0-33.3); Mean Corpuscular Volume 88.1 fL (83.0-100.0); Mean Platelet Volume 8.6 fL (9.4-12.4); Monocytes # 0.6 K/mcL (0.0-1.3); Monocytes % 8.7 %; Neutrophils # 5.5 K/mcL (1.6-8.9); Platelet Count 218 K/mcL (140-400); Red Blood Count 4.37 M/mcL (4.19-5.50); Red Cell Distribution Width 11.7 % (11.5-14.5); Segmented Neutrophils % 79.8 %
[2018-01-06 16:09] LABS: Prothrombin Time 10.9 Seconds (9.4-12.1)
[2018-01-06 16:11] LABS: Activated Partial Thrombo Time 25.9 Seconds (26.0-36.0)
[2018-01-06 16:25] LABS: BUN/Creatinine Ratio 19 (6-26); Blood Urea Nitrogen 19 mg/dL (8-23); Calcium 8.4 mg/dL (8.6-10.3); Carbon Dioxide 24 mEq/L (23-29); Chloride 97 mEq/L (98-107); Glucose 321 mg/dL (70-105); Osmolality,Calculated 279 (280-300); Potassium 4.5 mEq/L (3.5-5.1); Sodium 127 mEq/L (136-145); Troponin I < 0.03 ng/mL (< 0.04); eGFR For African Americans > 60 (> 60); eGFR For Non-African Americans > 60 (> 60)
[2018-01-06] MEDS ORDERED: Naloxone 0.4 MG/ML INJ IVP PRN (20:43)
[2018-01-06] MEDS ORDERED: Nitroglycerin 0.4 MG TAB.SUBL SL PRN (20:45)
[2018-01-06] MEDS ORDERED: Insulin NPH/REG 70/30 100 UNIT/ML (x5UNIT) SQ SCH (21:00)
--- NOTE | 2018-01-06 21:00 | Internal Med History&Physical ---
Date of Encounter: 01/06/18 Time of Encounter: 20:52 Internal Medicine - H&P: HPI Chief complaint: chest pain Admitted From: Emergency Dept Plans for Post Hospital Care: Home History of present illness: Mr. Musa is a 77 year old male who is a background medical history of a diabetic , hypertension, dyslipidemia, coronary artery disease, patient was hospitalized in July 2017 and that time patient underwent left heart catheterization. Noted that patient had a successful PTCA/MICHEL was mentioned in the mid circumflex and SVG to first OM. He was started on Cardizem for palpitations. Patient came to emergency room for persistent left-sided precordial chest pain which was ongoing for more than 24 hours. In last 24 hours patient noted that the pain was worsening. Patient denies nausea, abdominal pain, dizziness and diarrhea. Workup in the emergency room: Patient was evaluated in the emergency room. Baseline labs were drawn. First troponin was negative. Chest x-ray was negative for any acute cardiopulmonary process. Reason for admission: Chest pain to rule out ACS. Heart score: 5 Family history: Noncontributory Past Med Surg Social Fam HX - Past Medical History Medical history: coronary artery disease, diabetes, hyperlipidemia, hypertension , myocardial infarction Psychiatric history: no psych history - Past Surgical History Surgical History: cataract, coronary bypass (CABG) - Social History Smoking Status: Never smoker Smokeless Tobacco Status: No Alcohol use: none Drug use: none - Family History Mother Living Status: Cause of : heart attack Hx Family Cardiac Disorders: Yes Hx Family Endocrine Disorder: Yes Father Living Status: Hx Family Cardiac Disorders: Yes ([place]) Internal Medicine - H&P: Meds Aspirin Enteric Coated [Aspirin EC] 81 mg PO DAILY 03/19/16 [History] Atorvastatin [Lipitor] 40 mg PO HS 03/19/16 [History] Clopidogrel [Plavix] 75 mg PO DAILY 03/19/16 [History] Insulin NPH Hum/Reg Insulin Hm [Novolin 70-30 100 Unit/ml Vial] 8 - 12 unit SQ BID 03/19/16 [History] Isosorbide MONOnitrate [Isosorbide Mononitrate ER] 120 mg PO DAILY 03/19/16 [ History] Nitroglycerin [Nitrostat] 0.4 mg SL Q5M PRN 03/19/16 [History] Tamsulosin [Flomax] 0.4 mg PO DAILY 03/19/16 [History] Ranolazine [Ranexa] 500 mg PO BID #60 tab.er.12h 03/20/16 [Rx] Pantoprazole Sodium [Protonix] 40 mg PO DAILY 06/10/17 [History] Diltiazem CD (24hr) [Cardizem CD] 180 mg PO DAILY 07/29/17 [History] Metoprolol XL (24 HR) Succ [Toprol Xl] 25 mg PO DAILY #30 tab.er.24h 08/01/17 [ Rx] Losartan Potassium [Cozaar] 50 mg PO DAILY 01/06/18 [History] 3 Allergy/AdvReac Type Severity Reaction Status Date / Time lisinopril AdvReac Cough Verified 07/29/17 12:09 All Systems PM: A 10-system review of systems was performed and is negative for pertinent findings except as documented above in the HPI. - Constitutional Constitutional: no chills, no fever(s), no night sweats - EENT Eyes: no change in vision, no discharge, no pain, no photophobia Ears: no ear discharge, no ear pain, no tinnitus Nose, mouth and throat: no dysphagia, no nasal discharge, no neck pain, no sore throat - Cardiovascular Cardiovascular ROS IM: chest pain, no diaphoresis, no dyspnea, no lightheadedness, no palpitations, no syncope - Respiratory Respiratory: no cough, no dyspnea, no wheezing, no excessive phlegm production - Gastrointestinal Gastrointestinal: no abdominal pain, no diarrhea, no hematemesis, no hematochezia, no melena, no nausea, no vomiting - Musculoskeletal Musculoskeletal ROS IM: no numbness, no tingling - Integumentary Integumentary IM: no rash, no unusual bruising - Neurological Neurological ROS: no confusion, no convulsions, no focal weakness, no numbness, no tingling, no tremor(s) - Hematologic/Lymphatic Hematologic/Lymphatic: no easy bruising - Constitutional Vitals: Temp Pulse Resp BP Pulse Ox 98.1 F 69 17 168/76 95 01/06/18 17:38 01/06/18 17:38 01/06/18 17:38 01/06/18 17:38 01/06/18 17:38 General appearance: Present: A&O X 3, pleasant, no acute distress, answers questions appropriately - Head Head exam: Present: atraumatic, normocephalic - Eye Eye exam: Present: PERRL, conjuntiva pink, sclera anicteric Pupils: Present: PERRL - Neck Neck exam general surgery: Present: supple, trachea midline. Absent: lymphadenopathy - Respiratory Respiratory exam: Present: CTAB. Absent: accessory muscle use, rales, rhonchi, wheezes - Cardiovascular Cardiovascular exam: Present: RRR, +S1, +S2. Absent: diastolic murmur, gallop, rubs, systolic murmur - GI/Abdominal GI/Abdominal exam: Present: normal bowel sounds, soft, no peritoneal signs. Absent: distended, tenderness - Extremities Exam Extremities exam: Present: warm, radial pulses palpable and symmetrical. Absent : calf tenderness, cyanotic, pedal edema - Neurological Exam Neurological exam: Present: CN II-XII intact, oriented X3, no focal deficits. Absent: pronater drift, facial droop, speech deficit - Skin Skin exam: Present: dry, intact Internal Med - H&P Results - Labs CBC & Chem 7: 01/06/18 15:39 01/06/18 15:39 - Assessment and plan (1) Chest pain Current Visit: No Status: Resolved Assessment and plan: 77/male admitted with chest pain. Plan: Admit as observation. Cycle troponin. EKG. Aspirin/statin/beta blockers/ARB/Imdur/NTG Cardiology already on board. I examined this patient in the emergency department room #18. Patient's along with the kids were at the bedside. Plan of care explained at length. They verbalize understanding Qualifiers: Chest pain type: other chest pain Qualified Code(s): R07.89 - Other chest pain; R07.8 - Other chest pain (2) CAD (coronary artery disease) Current Visit: No Status: Chronic Assessment and plan: Please see the previous admission cardiology note for details regarding coronary artery disease. Qualifiers: Coronary Disease-Associated Artery/Lesion type: bypass graft [place] vs. transplanted heart: [place] heart Associated angina: with stable angina Qualified Code(s): I25.708 - Atherosclerosis of coronary artery bypass graft(s) , unspecified, with other forms of angina pectoris (3) Diabetes mellitus Current Visit: No Status: Chronic Assessment and plan: Patient is known to have her type 2 diabetes mellitus. Last A1c: 8.4% :09/2017. We will continue home dose of insulin. 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 Patient is on multiple medications for the same. We will resume medication. We will closely monitor his blood pressure during this hospitalization. Qualifiers: Hypertension type: essential hypertension Qualified Code(s): I10 - Essential (primary) hypertension (5) DVT prophylaxis Current Visit: No Status: Acute Assessment and plan: Heparin Medical decision making: This patient has a moderate to severe risk of worsening in spite of being on appropriate medication due to the underlying chronic comorbid condition. - Time Spent With Patient Total time spent is greater than 50% in coordination of care (as documented) at patient's floor/unit and/or counseling patient:
[2018-01-06] MEDS: Ranolazine 500 MG TAB.ER.12H PO SCH (22:08)
[2018-01-06] MEDS: *HR* Heparin 5,000 UNIT/ML VIAL SQ SCH (22:08)
[2018-01-06] MEDS ORDERED: *HR* Dextrose 50 % in Water (Syg) 50 ML SYRINGE IVP PRN (22:54)
[2018-01-06] MEDS ORDERED: D5% in Water 1,000 ML IVC PRN (22:54)
[2018-01-06] MEDS ORDERED: Dextrose Gel 15 GM/37.5 ML TUBE PO PRN ×2 (22:54)
[2018-01-07 03:14] LABS: Basophils % 0.3 %; Eosinophils # 0.2 K/mcL (0.0-0.6); Eosinophils % 2.6 %; Hematocrit 39.3 % (37.5-50.1); Immature Granulocytes % 0.3 % (0-4); Lymphocytes # 1.2 K/mcL (0.6-4.6); Lymphocytes % 17.4 %; Mean Corpuscular HGB Conc 35.6 g/dL (31.6-35.5); Mean Corpuscular Volume 86.9 fL (83.0-100.0); Mean Platelet Volume 8.5 fL (9.4-12.4); Monocytes # 0.7 K/mcL (0.0-1.3); Monocytes % 10.8 %; Neutrophils # 4.7 K/mcL (1.6-8.9); Platelet Count 225 K/mcL (140-400); Red Blood Count 4.52 M/mcL (4.19-5.50); Red Cell Distribution Width 11.8 % (11.5-14.5); Segmented Neutrophils % 68.6 %
[2018-01-07 03:19] LABS: Alanine Aminotransferase 12 Units/L (7-52); Albumin 3.6 g/dL (3.5-5.7); Albumin/Globulin Ratio 1.7 (1.1-2.2); Alkaline Phosphatase 60 Units/L (34-104); Aspartate Amino Transferase 11 Units/L (13-39); BUN/Creatinine Ratio 17 (6-26); Bilirubin,Total 0.4 mg/dL (0.3-1.0); Blood Urea Nitrogen 16 mg/dL (8-23); Calcium 8.5 mg/dL (8.6-10.3); Carbon Dioxide 23 mEq/L (23-29); Chloride 104 mEq/L (98-107); Chol/HDL Ratio 3.2 (0-4.9); Cholesterol 95 mg/dL (< 200); Globulin 2.1 g/dL (2.4-3.5); Glucose 259 mg/dL (70-105); HDL Cholesterol 30 mg/dL (40-59); LDL Cholesterol,Calculated 31 mg/dL (0-99); Osmolality,Calculated 288 (280-300); Phosphorous 2.8 mg/dL (2.7-4.5); Prothrombin Time 11.1 Seconds (9.4-12.1); Sodium 134 mEq/L (136-145); Total Protein 5.7 g/dL (6.4-8.9); Triglycerides 169 mg/dL (< 150); eGFR For African Americans > 60 (> 60); eGFR For Non-African Americans > 60 (> 60)
[2018-01-07 03:22] LABS: Activated Partial Thrombo Time 26.1 Seconds (26.0-36.0)
[2018-01-07] MEDS: *HR* Heparin 5,000 UNIT/ML VIAL SQ SCH ×3 (05:01→20:37)
[2018-01-07] MEDS: Diltiazem CD (24hr) 180 MG CAPSULE PO SCH (07:24)
[2018-01-07] MEDS: Aspirin Enteric Coated 81 MG Tablet PO SCH (07:24)
[2018-01-07] MEDS: Metoprolol XL (24 HR) Succ 25 MG TAB.ER.24H PO SCH (07:24)
[2018-01-07] MEDS: Ranolazine 500 MG TAB.ER.12H PO SCH ×2 (07:25→20:37)
[2018-01-07] MEDS: Insulin LISPRO 300 UNITS/3 ML VIAL SQ SCH ×3 (07:31→17:09)
[2018-01-07] MEDS: Insulin NPH/REG 70/30 100 UNIT/ML (x5UNIT) SQ SCH ×2 (07:32→20:38)
--- NOTE | 2018-01-07 09:55 | Internal Med Progress Note ---
Date of Encounter: 01/07/18 Time of Encounter: 09:52 - Assessment and plan (1) Chest pain Current Visit: Yes Status: Acute Assessment and plan: Admitted for chest pain rule out with nonexertional, nonradiating left precordial chest pain. Chest pain subsided upon arrival to the ED. Extensive CAD including 6/10 total as well as CABG X2. Troponin negative at <0.03 x3, EKG with no concerning changes. Cardiology already on board and will see in consultation - continuous tele - ASA - Continue anti-HTN medications - O2 by SD PRN to keep SpO2 greater than 92% - Resume home medications - Heparin 5000 U SQ BID - Nonexercise nuclear stress test - Hold nitrate prior to stress test Qualifiers: Chest pain type: other chest pain Qualified Code(s): R07.89 - Other chest pain; R07.8 - Other chest pain (2) CAD (coronary artery disease) Current Visit: Yes Status: Chronic Assessment and plan: History of CAD, has had a two-vessel CABG in the remote past. Recent C in July 2017 requiring stent placement. MIHCEL to mid circumflex, 95% proximal RCA, SVG to OM 1 with 20% in stent restenosis of distal portion and 50% ISR mid body of the graft and 80% proximal stenosis with MICHEL placed. Assessment taking aspirin and Plavix, continue these medications. Additionally , continue anti-HTN medications and statin, as well as nitrates Qualifiers: Coronary Disease-Associated Artery/Lesion type: unspecified vessel or lesion type [place] vs. transplanted heart: [place] heart Associated angina: with unspecified angina Qualified Code(s): I25.119 - Atherosclerotic heart disease of [place] coronary artery with unspecified angina pectoris (3) Diabetes mellitus Current Visit: Yes Status: Chronic Assessment and plan: Continue insulin coverage per home regimen Last A1c: 8.4% :09/2017. 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 Resume home anti-HTN medications and monitor BP closely. Has had multiple issues with adjustment of blood pressure medications in the recent past causing rebound hypertension. Defer to cardiology who was on board for any anti-HTN medication adjustments. Qualifiers: Hypertension type: essential hypertension Qualified Code(s): I10 - Essential (primary) hypertension (5) DVT prophylaxis Current Visit: Yes Status: Acute Assessment and plan: Heparin 5000 units subcutaneous every 8 hours - Time Spent With Patient Total time spent is greater than 50% in coordination of care (as documented) at patient's floor/unit and/or counseling patient: Greater than 35 minutes - Subjective Interval history: Patient seen and examined at bedside. Was initially admitted for chest pain rule out. Chest pain subsided in the ED yesterday. Denies any return of chest pain overnight. Review of telemetry was unremarkable. Patient resting comfortably in bed without any distress. Denies any further concerns or needs at this time. - Constitutional Vitals: Temp Pulse Resp BP Pulse Ox 98.8 F 72 16 168/75 96 01/07/18 07:00 01/07/18 07:38 01/07/18 07:38 01/07/18 07:38 01/07/18 07:00 General appearance: Present: A&O X 3, pleasant, no acute distress, answers questions appropriately - Head Head exam: Present: atraumatic, normocephalic - Eye Eye exam: Present: PERRL, conjuntiva pink, sclera anicteric Pupils: Present: PERRL - Neck Neck exam general surgery: Present: supple, trachea midline. Absent: lymphadenopathy - Respiratory Respiratory exam: Present: CTAB. Absent: accessory muscle use, rales, rhonchi, wheezes - Cardiovascular Cardiovascular exam: Present: RRR, +S1, +S2. Absent: diastolic murmur, gallop, rubs, systolic murmur - GI/Abdominal GI/Abdominal exam: Present: normal bowel sounds, soft, no peritoneal signs. Absent: distended, tenderness - Extremities Exam Extremities exam: Present: warm, radial pulses palpable and symmetrical. Absent : calf tenderness, cyanotic, pedal edema - Neurological Exam Neurological exam: Present: CN II-XII intact, oriented X3, no focal deficits. Absent: pronater drift, facial droop, speech deficit - Skin Skin exam: Present: dry, intact Internal Medicine: Result - Labs CBC & Chem 7: 01/07/18 02:37 01/07/18 02:37 Labs: Short CBC 01/07/18 Range/Units 02:37 WBC 6.8 (4.3-11.1) K/mcL Hgb 14.0 (12.9-16.9) g/dL Hct 39.3 (37.5-50.1) % Plt Count 225 (140-400) K/mcL Neutrophils # 4.7 (1.6-8.9) K/mcL BMP 01/07/18 02:37 Sodium 134 L Potassium 4.0 Chloride 104 Carbon Dioxide 23 BUN 16 Creatinine 0.92 Glucose 259 H Calcium 8.5 L Cardiac Enzymes 01/06/18 01/07/18 01/07/18 Range/Units 21:30 02:37 09:07 Troponin I < 0.03 < 0.03 < 0.03 (< 0.04) ng/mL Liver Function 01/07/18 Range/Units 02:37 Total Bilirubin 0.4 (0.3-1.0) mg/dL AST 11 L (13-39) Units/L ALT 12 (7-52) Units/L Alkaline Phosphatase 60 (34-104) Units/L Albumin 3.6 (3.5-5.7) g/dL - ABG Interpretation ABG results: PT/INR, D-dimer PT 11.1 Seconds (9.4-12.1) 01/07/18 02:37 Consult Discharge Plan - Plan Referrals: [facility] [Provider Group] - 02/06/18 2:00 pm Teetee Cisneros CNP [Primary Care Provider] - 01/09/18 10:00 am
[2018-01-07] MEDS: Isosorbide MONOnitrate (24 HR) 60 MG TAB.ER.24H PO SCH (10:12)
--- NOTE | 2018-01-07 10:47 | Cardiology Consult Note ---
<HelioEvita J - Last Filed: 01/07/18 11:10> Date of Encounter: 01/07/18 Time of Encounter: 10:00 Assessment and Plan (1) Chest pain Current Visit: Yes Status: Acute Per cardiology: -Admitted with single episode of chest pain with exertion. -Denies current chest pain. -Troponins negative x4. -ECG with no acute ischemic changes. -BP labile. -Non-exercise nuclear stress test. -If stress negative, can consider increasing ranexa. Qualifiers: Chest pain type: other chest pain Qualified Code(s): R07.89 - Other chest pain; R07.8 - Other chest pain (2) CAD (coronary artery disease) Current Visit: Yes Status: Chronic Per cardiology: -Known CAD s/p CABG x2 1993 and multiple PCIs. -Stress 05/2017 negative for ischemia or infarct. -TTE 05/2017 with LVEF 60-65%. Atypical septal motion consistent with post- operative status. Mild left ventricular diastolic dysfunction. No segmental wall motion abnormalities. 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 -On asa, plavix, statin, imdur, ARB, BB, ranexa. On CCB for palpitations. Denies missed doses of asa or plavix. -Will check non-exercise nuclear stress test. -Dual anti-platelet therapy for at least one year. Qualifiers: Coronary Disease-Associated Artery/Lesion type: unspecified vessel or lesion type [place] vs. transplanted heart: [place] heart Associated angina: with unspecified angina Qualified Code(s): I25.119 - Atherosclerotic heart disease of [place] coronary artery with unspecified angina pectoris Discussion w patient/family: The assessment and plan as outlined above was discussed with the patient who expressed understanding and agreement. All questions were answered. Thank you for involving us in the care of your patient. Please call with any questions. Discussed and reviewed with . History of Present Illness Consult date: 01/06/18 Requesting physician: Osvaldo Carter Consult reason: chest pain Chief complaint: chest pain History of present illness: Mr. Musa is a 77 year old male with a relevant past medical history of CAD s/p CABG 1994 x2 vessel, multiple PCIs, DM, GERD, HTN, HLD, traumatic brain injury who presented to [facility] with complaints of chest pain. Patient reports he was standing, holding his wifes dog when he had sudden onset of diaphoresis, dizziness, and chest pressure. Patient reports he sat down and took nitro x2 without relief. Patient reports called squad and squad administered nitro again without relief. Patient states pain spontaneously resolved after about 4 hours. Denies current chest pain. Denies shortness of breath. Denies increased fatigue. Reports BP very labile at home. Reports takes BP and at times will read 200 systolic and other times will be 90 systolic. Past Med Surg Social Fam HX - Past Medical History Attestation: Yes The following information was validated with the patient. Source: patient, old records reviewed Medical history: coronary artery disease, diabetes, hyperlipidemia, hypertension , myocardial infarction Psychiatric history: no psych history - Past Surgical History Surgical History: cataract, coronary bypass (CABG) - Social History Smoking Status: Never smoker Smokeless Tobacco Status: No Alcohol use: none Drug use: none - Family History Mother Living Status: Cause of : heart attack Hx Family Cardiac Disorders: Yes Hx Family Endocrine Disorder: Yes Father Living Status: Hx Family Cardiac Disorders: Yes ([place]) Medications and Allergies Aspirin Enteric Coated [Aspirin EC] 81 mg PO DAILY 03/19/16 [History] Atorvastatin [Lipitor] 40 mg PO HS 03/19/16 [History] Clopidogrel [Plavix] 75 mg PO DAILY 03/19/16 [History] Insulin NPH Hum/Reg Insulin Hm [Novolin 70-30 100 Unit/ml Vial] 8 - 12 unit SQ BID 03/19/16 [History] Isosorbide MONOnitrate [Isosorbide Mononitrate ER] 120 mg PO DAILY 03/19/16 [ History] Nitroglycerin [Nitrostat] 0.4 mg SL Q5M PRN 03/19/16 [History] Tamsulosin [Flomax] 0.4 mg PO DAILY 03/19/16 [History] Ranolazine [Ranexa] 500 mg PO BID #60 tab.er.12h 03/20/16 [Rx] Pantoprazole Sodium [Protonix] 40 mg PO DAILY 06/10/17 [History] Diltiazem CD (24hr) [Cardizem CD] 180 mg PO DAILY 07/29/17 [History] Metoprolol XL (24 HR) Succ [Toprol Xl] 25 mg PO DAILY #30 tab.er.24h 08/01/17 [ Rx] Losartan Potassium [Cozaar] 50 mg PO DAILY 01/06/18 [History] 3 Allergy/AdvReac Type Severity Reaction Status Date / Time lisinopril AdvReac Cough Verified 07/29/17 12:09 All Systems Review: The remainder of the systems were reviewed and are negative - Cardiovascular Cardiovascular: as per HPI, chest pain with exertion, diaphoresis - Neurological Neurological: dizziness Physical Examination Vital Signs, Last 4 Hours Temp Pulse Resp BP Pulse Ox 01/07/18 07:38 72 16 168/75 01/07/18 07:37 72 16 167/77 01/07/18 07:00 98.8 F 68 14 167/74 96 General: Conversant, No Apparent Distress HEENT: Atraumatic, Normocephaly, Mucus Membranes Moist Neck: No JVD, Normal carotid pulses Cardiac: Reg Rate and Rhythm, Normal S1 and S2, No Murmur Lungs: Normal Breath Sounds, No Wheeze, Rales, Rhonchi Neuro: Alert and responsive, No focal deficits noted Abdomen: Soft, Non-Tender Skin: No rashes noted on visualized skin Musculoskeletal: No Chest Wall Tenderness Extremities: No Clubbing, No Cyanosis, No Edema, Normal Pulses Results 01/07/18 02:37 01/07/18 02:37 Lab Results Impressions Chest X-Ray 01/06/18 15:17 IMPRESSION: No acute process. D/ / 01/06/2018 15:47:33 Renato Frazier MD / jerry Interpreting Provider: Renato Frazier MD Active Medications Aspirin (Aspirin Ec) 81 mg PO DAILY UNIQUE Stop: 07/09/18 09:01 Last Admin: 01/07/18 07:24 Dose: 81 mg Atorvastatin Calcium (Lipitor) 40 mg PO HS UNIQUE Stop: 07/08/18 21:01 Last Admin: 01/06/18 22:08 Dose: 40 mg Clopidogrel Bisulfate (Plavix) 75 mg PO DAILY [facility] Stop: 07/09/18 09:01 Last Admin: 01/07/18 07:25 Dose: 75 mg Dextrose/Water (Dextrose 50% (Syg)) 25 ml IVP AD PRN PRN Reason: Hypoglycemia Stop: 07/08/18 22:55 Diltiazem HCl (Cardizem Cd) 180 mg PO DAILY [facility] Stop: 07/09/18 09:01 Last Admin: 01/07/18 07:24 Dose: 180 mg Glucagon (Glucagen) 1 mg IM ONCE PRN PRN Reason: Hypoglycemia Stop: 07/08/18 22:55 Glucose (Gluctose) 15 gm PO ONCE PRN PRN Reason: Hypoglycemia Stop: 07/08/18 22:55 Glucose (Gluctose) 30 gm PO ONCE PRN PRN Reason: Hypoglycemia Stop: 07/08/18 22:55 Heparin Sodium (Porcine) (Heparin) 5,000 unit SQ Q8HCO [facility] Stop: 07/08/18 22:01 Last Admin: 01/07/18 05:01 Dose: 5,000 unit Dextrose (Dextrose 5%) 1,000 mls @ 100 mls/hr IVC .Q10H PRN PRN Reason: HYPOGLYCEMIA Stop: 07/08/18 22:55 Insulin Human Lispro (Humalog) 0 units SQ TIDAC [facility] PRN Reason: Protocol Stop: 07/09/18 07:31 Last Admin: 01/07/18 07:31 Dose: Not Given Insulin Human Lispro (Humalog) 0 units SQ [facility] PRN Reason: Protocol Stop: 07/09/18 21:01 Insulin Isophane/Insulin Regular (Humulin 70/30 Vial) 10 unit SQ BID [facility] Stop: 07/08/18 22:50 Last Admin: 01/07/18 07:32 Dose: Not Given Isosorbide Mononitrate (Imdur) 120 mg PO DAILY [facility] Stop: 07/09/18 09:01 Last Admin: 01/07/18 10:12 Dose: Not Given Losartan Potassium (Cozaar) 50 mg PO DAILY [facility] Stop: 07/09/18 09:01 Last Admin: 01/07/18 07:24 Dose: 50 mg Metoprolol Succinate (Toprol Xl) 25 mg PO DAILY [facility] Stop: 07/09/18 09:01 Last Admin: 01/07/18 07:24 Dose: 25 mg Naloxone HCl (Narcan) 0.4 mg IVP Q2MIN PRN PRN Reason: SEE COMMENTS Stop: 07/08/18 20:44 Nitroglycerin (Nitroglycerin) 0.4 mg SL Q5M PRN PRN Reason: Chest Pain Stop: 07/08/18 20:46 Omeprazole (Prilosec) 20 mg PO DAILY UNIQUE Stop: 07/09/18 09:01 Last Admin: 01/07/18 07:24 Dose: 20 mg Ranolazine (Ranexa) 500 mg PO BID UNIQUE Stop: 07/08/18 21:01 Last Admin: 01/07/18 07:25 Dose: 500 mg Tamsulosin HCl (Flomax) 0.4 mg PO DAILY UNIQUE PRN Reason: Protocol Stop: 07/09/18 09:01 Last Admin: 01/07/18 07:24 Dose: 0.4 mg Laboratory Tests 01/06/18 01/06/18 01/07/18 15:39 21:30 02:37 Hgb Creatinine Troponin I < 0.03 < 0.03 < 0.03 01/07/18 01/07/18 01/07/18 02:37 02:37 09:07 Hgb 14.0 Creatinine 0.92 Troponin I < 0.03 - Imaging and Cardiology Chest Xray: report reviewed Stress Test: report reviewed Echo: report reviewed Cardiac cath: report reviewed - EKG Interpretation EKG results cardiology: personally reviewed (ECG with SR, HR 76. PAC and PVC noted.), other (Telemetry reviewed with average HR previous 12 hours noted to be 67, SR. PVCs, PACs noted. Couplets and triplets noted.) Consult Discharge Plan - Plan Referrals: [facility] [Provider Group] - 02/06/18 2:00 pm Teetee Cisneros CNP [Primary Care Provider] - 01/09/18 10:00 am <Jayson Cordero - Last Filed: 01/07/18 13:09> Date of Encounter: 01/07/18 - Attending Attestation I have personally performed a face to face evaluation on this patient. I have reviewed and agree with the care plan. History and Exam by me shows: 77 YOM s/p PCI to the SVG to OM1, PCI to the mid CIRC 07/2017 with preserved EF. Presents with chest pain lasting 3 hours atypical negative CE's and unremarkable EKG. Extensive hx of CAD recent PCI with atypical chest pain. Will proceed with a chemical stress test for risk stratification. Assessment and Plan Discussion w patient/family: The assessment and plan as outlined above was discussed with the patient and/or family members who expressed understanding and agreement. All questions were answered. Thank you for involving us in the care of your patient. Please call with any questions. History of Present Illness History of present illness: Mr. Musa is a 77 year old male All Systems Review: The remainder of the systems were reviewed and are negative Physical Examination Vital Signs, Last 4 Hours Temp Pulse Resp BP Pulse Ox 01/07/18 11:09 98.0 F 74 14 150/66 96 Results 01/07/18 02:37 01/07/18 02:37 Lab Results 01/06/18 01/07/18 01/07/18 21:30 02:37 02:37 WBC 6.8 Hgb 14.0 Hct 39.3 Plt Count 225 INR APTT Sodium Potassium Chloride Carbon Dioxide BUN Creatinine Glucose Calcium Magnesium Total Bilirubin AST ALT Alkaline Phosphatase Troponin I < 0.03 < 0.03 B-Natriuretic Peptide 01/07/18 01/07/18 01/07/18 02:37 02:37 02:37 WBC Hgb Hct Plt Count INR 1.0 APTT 26.1 Sodium 134 L Potassium 4.0 Chloride 104 Carbon Dioxide 23 BUN 16 Creatinine 0.92 Glucose 259 H Calcium 8.5 L Magnesium 2.0 Total Bilirubin 0.4 AST 11 L ALT 12 Alkaline Phosphatase 60 Troponin I B-Natriuretic Peptide 91 01/07/18 09:07 WBC Hgb Hct Plt Count INR APTT Sodium Potassium Chloride Carbon Dioxide BUN Creatinine Glucose Calcium Magnesium Total Bilirubin AST ALT Alkaline Phosphatase Troponin I < 0.03 B-Natriuretic Peptide
[2018-01-07] MEDS ORDERED: Regadenoson 0.4 MG/5 ML SYRINGE IVP ONE (11:42)
--- NOTE | 2018-01-07 16:34 | Electrocardiograph Report ---
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
[2018-01-07] MEDS ORDERED: Insulin LISPRO 300 UNITS/3 ML VIAL SQ SCH (21:00)
[2018-01-08] MEDS: *HR* Heparin 5,000 UNIT/ML VIAL SQ SCH (05:45)
[2018-01-08 07:00] VITALS: BP 173/75
[2018-01-08] MEDS: Metoprolol XL (24 HR) Succ 25 MG TAB.ER.24H PO SCH (08:56)
[2018-01-08] MEDS: Isosorbide MONOnitrate (24 HR) 60 MG TAB.ER.24H PO SCH (08:56)
[2018-01-08] MEDS: Diltiazem CD (24hr) 180 MG CAPSULE PO SCH (08:56)
[2018-01-08] MEDS: Aspirin Enteric Coated 81 MG Tablet PO SCH (08:56)
[2018-01-08] MEDS ORDERED: Ranolazine 500 MG TAB.ER.12H PO SCH (09:00)
[2018-01-08] MEDS: Insulin LISPRO 300 UNITS/3 ML VIAL SQ SCH (09:03)
[2018-01-08] MEDS: Insulin NPH/REG 70/30 100 UNIT/ML (x5UNIT) SQ SCH (09:03)
--- NOTE | 2018-01-08 09:56 | Cardiology Progress Note ---
Date of Encounter: 01/08/18 Time of Encounter: 09:00 Assessment and Plan (1) Chest pain Current Visit: Yes Status: Acute Per cardiology: -Admitted with single episode of chest pain with exertion. -Denies current chest pain. -Troponins negative x4. -ECG with no acute ischemic changes. -BP labile. -Stress test negative for ischemia or infarct. -Will increase ranexa. Of note, patient states sometimes has trouble affording 500mg dose of ranexa. Will follow with his primary organ fixer. -Cardiology will sign off and will follow in outpatient setting. Follow up set. Qualifiers: Chest pain type: other chest pain Qualified Code(s): R07.89 - Other chest pain; R07.8 - Other chest pain (2) CAD (coronary artery disease) Current Visit: Yes Status: Chronic Per cardiology: -Known CAD s/p CABG x2 1993 and multiple PCIs. -Stress 05/2017 negative for ischemia or infarct. -TTE 05/2017 with LVEF 60-65%. Atypical septal motion consistent with post- operative status. Mild left ventricular diastolic dysfunction. No segmental wall motion abnormalities. -last LHC 07/2017 with 100% ostial LAD HR CLERK, 40% in stent restenosis of proximal circumflex, 80% mid circumflex with MICHEL placed, 40% distal circ, 50% left PDA, 100% ramus HR CLERK, 80% proximal ramus, 95% proximal RCA, SVG to OM 1 with 20% in stent restenosis of distal portion and 50% ISR mid body of the graft and 80% proximal stenosis with MICHEL placed, DISLA to LAD patent. -On asa, plavix, statin, imdur, ARB, BB, ranexa. On CCB for palpitations. Denies missed doses of asa or plavix. -Dual anti-platelet therapy for at least one year. -Will follow in outpatient setting. Qualifiers: Coronary Disease-Associated Artery/Lesion type: unspecified vessel or lesion type [place] vs. transplanted heart: [place] heart Associated angina: with unspecified angina Qualified Code(s): I25.119 - Atherosclerotic heart disease of [place] coronary artery with unspecified angina pectoris Discussion w patient/family: The assessment and plan as outlined above was discussed with the patient who expressed understanding and agreement. All questions were answered. Thank you for involving us in the care of your patient. Please call with any questions. Discussed and reviewed with . Subjective Principal diagnosis: chest pain Interval history: Patient denies recurrent chest pain. Patient states he is ready to go home. Objective Vital Signs, Last 4 Hours Temp Pulse Resp BP Pulse Ox 01/08/18 06:58 99.0 F 73 14 173/75 97 General: Conversant, No Apparent Distress HEENT: Atraumatic, Normocephaly, Mucus Membranes Moist Neck: No JVD, Normal carotid pulses Cardiac: Reg Rate and Rhythm, Normal S1 and S2, No Murmur Lungs: Normal Breath Sounds, No Wheeze, Rales, Rhonchi Neuro: Alert and responsive, No focal deficits noted Abdomen: Soft, Non-Tender Skin: No rashes noted on visualized skin Musculoskeletal: No Chest Wall Tenderness Extremities: No Clubbing, No Cyanosis, No Edema, Normal Pulses Results 01/07/18 02:37 01/07/18 02:37 Active Medications Aspirin (Aspirin Ec) 81 mg PO DAILY [facility] Stop: 07/09/18 09:01 Last Admin: 01/08/18 08:56 Dose: 81 mg Atorvastatin Calcium (Lipitor) 40 mg PO HS UNIQUE Stop: 07/08/18 21:01 Last Admin: 01/07/18 20:37 Dose: 40 mg Clopidogrel Bisulfate (Plavix) 75 mg PO DAILY [facility] Stop: 07/09/18 09:01 Last Admin: 01/08/18 08:57 Dose: 75 mg Dextrose/Water (Dextrose 50% (Syg)) 25 ml IVP AD PRN PRN Reason: Hypoglycemia Stop: 07/08/18 22:55 Diltiazem HCl (Cardizem Cd) 180 mg PO DAILY UNIQUE Stop: 07/09/18 09:01 Last Admin: 01/08/18 08:56 Dose: 180 mg Glucagon (Glucagen) 1 mg IM ONCE PRN PRN Reason: Hypoglycemia Stop: 07/08/18 22:55 Glucose (Gluctose) 15 gm PO ONCE PRN PRN Reason: Hypoglycemia Stop: 07/08/18 22:55 Glucose (Gluctose) 30 gm PO ONCE PRN PRN Reason: Hypoglycemia Stop: 07/08/18 22:55 Heparin Sodium (Porcine) (Heparin) 5,000 unit SQ Q8HCO UNIQUE Stop: 07/08/18 22:01 Last Admin: 01/08/18 05:45 Dose: 5,000 unit Dextrose (Dextrose 5%) 1,000 mls @ 100 mls/hr IVC .Q10H PRN PRN Reason: HYPOGLYCEMIA Stop: 07/08/18 22:55 Insulin Human Lispro (Humalog) 0 units SQ TIDAC [facility] PRN Reason: Protocol Stop: 07/09/18 07:31 Last Admin: 01/08/18 09:03 Dose: 2 units Insulin Human Lispro (Humalog) 0 units SQ HS [facility] PRN Reason: Protocol Stop: 07/09/18 21:01 Last Admin: 01/07/18 20:37 Dose: 4 units Insulin Isophane/Insulin Regular (Humulin 70/30 Vial) 10 unit SQ BID [facility] Stop: 07/08/18 22:50 Last Admin: 01/08/18 09:03 Dose: 10 unit Isosorbide Mononitrate (Imdur) 120 mg PO DAILY [facility] Stop: 07/09/18 09:01 Last Admin: 01/08/18 08:56 Dose: 120 mg Losartan Potassium (Cozaar) 50 mg PO DAILY [facility] Stop: 07/09/18 09:01 Last Admin: 01/08/18 08:56 Dose: 50 mg Metoprolol Succinate (Toprol Xl) 25 mg PO DAILY [facility] Stop: 07/09/18 09:01 Last Admin: 01/08/18 08:56 Dose: 25 mg Naloxone HCl (Narcan) 0.4 mg IVP Q2MIN PRN PRN Reason: SEE COMMENTS Stop: 07/08/18 20:44 Nitroglycerin (Nitroglycerin) 0.4 mg SL Q5M PRN PRN Reason: Chest Pain Stop: 07/08/18 20:46 Omeprazole (Prilosec) 20 mg PO DAILY [facility] Stop: 07/09/18 09:01 Last Admin: 01/08/18 08:56 Dose: 20 mg Ranolazine (Ranexa) 1,000 mg PO BID [facility] Stop: 07/10/18 09:01 Last Admin: 01/08/18 08:57 Dose: 1,000 mg Tamsulosin HCl (Flomax) 0.4 mg PO DAILY [facility] PRN Reason: Protocol Stop: 07/09/18 09:01 Last Admin: 01/08/18 08:57 Dose: 0.4 mg - Imaging and Cardiology Chest Xray: report reviewed Stress Test: report reviewed Echo: report reviewed Cardiac cath: report reviewed - EKG Interpretation EKG results cardiology: other (Telemetry reviewed with average HR previous 12 hours noted to be 68, SR. PVCs and PACs noted.) Consult Discharge Plan - Plan Referrals: [facility] [Provider Group] - 02/06/18 2:00 pm Teetee Cisneros CNP [Primary Care Provider] - 01/09/18 10:00 am
--- NOTE | 2018-01-08 10:04 | Discharge Summary ---
- NOTES TO OUTPATIENT PROVIDER Notes to Outpatient Provider: Patient admitted for ACS rule out; underwent stress test, found to be negative for ischemia. Instructed to increase Ranexa from 500 mg twice a day to 1 g twice a day. Follow-up with cardiology in 2-3 weeks Orders not resulted at time of discharge: Pending orders 01/07/18 11:10 NM nima perf SPECT multi [NM] Routine Date of Encounter: 01/08/18 Time of Encounter: 08:10 - Discharge Diagnosis (1) Chest pain Priority: Primary Status: Acute Assessment and Plan: Admitted for chest pain rule out with nonexertional, nonradiating left precordial chest pain. Chest pain had ceased upon admission to the hospital, no return of chest pain during admission. Extensive CAD including 6 stents total as well as CABG X2. Troponin negative at <0.03 x3, EKG with no concerning changes. Stress test completed and found to be negative for ischemia. He Ranexa increased from 500 mg twice a day to 1000 mg 3 times a day. Patient remains stable from a hemodynamic standpoint, in no distress at this time. With negative workup and resolution of symptoms patient is medically stable for discharge today. He has been instructed to follow-up with PCP within a week of discharge from the hospital. Additionally, he has been instructed to return to the ED should chest pain return. Resume aspirin, statin , Plavix, beta marilyn, ARB, Imdur, Ranexa upon discharge. Qualifiers: Chest pain type: other chest pain Qualified Code(s): R07.89 - Other chest pain; R07.8 - Other chest pain (2) CAD (coronary artery disease) Priority: Secondary Status: Chronic Assessment and Plan: History of CAD, has had a two-vessel CABG in the remote past. Recent [facility] in July 2017 requiring stent placement. MICHEL to mid circumflex, 95% proximal RCA, SVG to OM 1 with 20% in stent restenosis of distal portion and 50% ISR mid body of the graft and 80% proximal stenosis with MICHEL placed. Assessment taking aspirin and Plavix, continue these medications. Additionally , continue anti-HTN medications and statin, as well as nitrates Qualifiers: Coronary Disease-Associated Artery/Lesion type: unspecified vessel or lesion type [place] vs. transplanted heart: [place] heart Associated angina: with unspecified angina Qualified Code(s): I25.119 - Atherosclerotic heart disease of [place] coronary artery with unspecified angina pectoris (3) Diabetes mellitus Priority: Secondary Status: Chronic Qualifiers: Diabetes mellitus type: type 2 Diabetes mellitus fpc insulin use: with long term care pharmacist use Diabetes mellitus complication status: without complication Qualified Code(s): E11.9 - Type 2 diabetes mellitus without complications; Z79.4 - long term care pharmacist (current) use of insulin (4) HTN (hypertension) Priority: Secondary Status: Chronic Qualifiers: Hypertension type: essential hypertension Qualified Code(s): I10 - Essential (primary) hypertension (5) DVT prophylaxis Priority: Secondary Status: Acute Hospital course: See assessment and plan and diagnosis for hospital course Discharge discussed with: patient, family, nurse, nursing consultant - Time Spent with Patient Total time spent providing and/or coordinating discharge services: Less than 30 minutes - Discharge Medications Home Medications: Aspirin Enteric Coated [Aspirin EC] 81 mg PO DAILY 03/19/16 [History] Atorvastatin [Lipitor] 40 mg PO HS 03/19/16 [History] Clopidogrel [Plavix] 75 mg PO DAILY 03/19/16 [History] Insulin NPH Hum/Reg Insulin Hm [Novolin 70-30 100 Unit/ml Vial] 8 - 12 unit SQ BID 03/19/16 [History] Isosorbide MONOnitrate [Isosorbide Mononitrate ER] 120 mg PO DAILY 03/19/16 [ History] Nitroglycerin [Nitrostat] 0.4 mg SL Q5M PRN 03/19/16 [History] Tamsulosin [Flomax] 0.4 mg PO DAILY 03/19/16 [History] Ranolazine [Ranexa] 500 mg PO BID #60 tab.er.12h 03/20/16 [Rx] Pantoprazole Sodium [Protonix] 40 mg PO DAILY 06/10/17 [History] Diltiazem CD (24hr) [Cardizem CD] 180 mg PO DAILY 07/29/17 [History] Metoprolol XL (24 HR) Succ [Toprol Xl] 25 mg PO DAILY #30 tab.er.24h 08/01/17 [ Rx] Losartan Potassium [Cozaar] 50 mg PO DAILY 01/06/18 [History] Allergies/Adverse Reactions: 3 Allergy/AdvReac Type Severity Reaction Status Date / Time lisinopril AdvReac Cough Verified 07/29/17 12:09 Date of admission: 01/06/18 17:01 Primary care physician: Teetee Cisneros CNP Discharging clinician: Liang Oseguera Anticipated date of discharge: 01/08/18 - Constitutional Vitals: Temp Pulse Resp BP Pulse Ox 99.0 F 73 14 173/75 97 01/08/18 06:58 01/08/18 06:58 01/08/18 06:58 01/08/18 06:58 01/08/18 06:58 General appearance: Present: A&O X 3, pleasant, no acute distress, answers questions appropriately - Head Head exam: Present: atraumatic, normocephalic - Eye Eye exam: Present: PERRL, conjuntiva pink, sclera anicteric Pupils: Present: PERRL - Neck Neck exam general surgery: Present: supple, trachea midline. Absent: lymphadenopathy - Respiratory Respiratory exam: Present: CTAB. Absent: accessory muscle use, rales, rhonchi, wheezes - Cardiovascular Cardiovascular exam: Present: RRR, +S1, +S2. Absent: diastolic murmur, gallop, rubs, systolic murmur - GI/Abdominal GI/Abdominal exam: Present: normal bowel sounds, soft, no peritoneal signs. Absent: distended, tenderness - Extremities Exam Extremities exam: Present: warm, radial pulses palpable and symmetrical. Absent : calf tenderness, cyanotic, pedal edema - Neurological Exam Neurological exam: Present: CN II-XII intact, oriented X3, no focal deficits. Absent: pronater drift, facial droop, speech deficit - Skin Skin exam: Present: dry, intact - Patient Status Disposition: Home, Self-Care Condition: Good Overall status at discharge: patient is back to baseline - Discharge Instructions Follow Up With: [facility] [Provider Group] - 02/06/18 2:00 pm Teetee Cisneros CNP [Primary Care Provider] - 01/09/18 10:00 am
== END 2018-01-08 11:29 | disposition home or self-care (01) ==
LOC: EMEROO 15:09 → 3BNU 15:09
PROVIDERS: ADMIT Internal Medicine; ATTEND Hospitalist

== ENCOUNTER 2019-04-28 14:25 | Observation (INO) ==
--- NOTE | 2019-04-28 14:58 | Emergency Department Note ---
Disposition Clinical Impression: Palpitations, History of heart artery stent, Frail elderly, History of hypercholesterolemia, History of cerebral hemorrhage, Headache CAD (coronary artery disease) Qualifiers: Coronary Disease-Associated Artery/Lesion type: [place] artery [place] vs. 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 He states he has a history of dysrhythmia but does not describe atrial fibrillation. He states he had a cardiac catheterization a few months ago which showed 50% lesions. 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 He takes Plavix and aspirin. The patient has not had usman chest pain, there is no history of coughing up blood leg swelling or pain or syncope. He states he has a headache and reports he had a history of intracerebral hemorrhage prior requiring surgery. This was induced secondary trauma. The patient denies slurred speech facial drooping arm or leg weakness or numbness. There is no history of recent injury. No neck stiffness rash or confusion. The patient denies abdominal pain. There is no history of back pain. No fever or URI symptoms. The patient states that he has had recurrent palpitations and fast heart rates which have been worsening over the last few weeks especially yesterday when he noticed increasing tachycardia and near syncope. The patient reports his symptomatology is much worse with exertion. He states his college football coach Dr. Schwab has recommended a stress test either outpatient or via ED evaluation. The patient has no history of aneurysms. He denies any history of DVT PE or cancer. Pain Scale: 0 - Related Data Home Medications Medication Instructions Recorded Confirmed Aspirin Enteric Coated [Aspirin EC] 81 mg PO DAILY 03/19/16 04/28/19 Atorvastatin [Lipitor] 40 mg PO HS 03/19/16 04/28/19 Clopidogrel [Plavix] 75 mg PO DAILY 03/19/16 04/28/19 Insulin NPH Hum/Reg Insulin Hm 8 - 12 unit SQ BID 03/19/16 04/28/19 [Novolin 70-30 100 Unit/ml Vial] Isosorbide MONOnitrate [Isosorbide 120 mg PO DAILY 03/19/16 04/28/19 Mononitrate ER] Nitroglycerin [Nitrostat] 0.4 mg SL Q5M PRN 03/19/16 04/28/19 Tamsulosin [Flomax] 0.4 mg PO DAILY 03/19/16 04/28/19 Pantoprazole Sodium [Protonix] 40 mg PO DAILY 06/10/17 04/28/19 Diltiazem CD (24hr) [Cardizem CD] 180 mg PO DAILY 07/29/17 04/28/19 Losartan Potassium [Cozaar] 50 mg PO DAILY 01/06/18 04/28/19 Previous Rx's Medication Instructions Recorded Metoprolol Succinate 50 mg PO DAILY #30 tab.er.24h 01/13/19 Allergies Allergy/AdvReac Type Severity Reaction Status Date / Time lisinopril AdvReac Cough Verified 07/29/17 12:09 All systems ED: reviewed and negative except as stated. Past Medical History - Past Medical History Medical history: Reports: coronary artery disease, diabetes, hyperlipidemia, hypertension, myocardial infarction Surgical history: Reports: cancer surgery, cataract, coronary bypass (CABG) Psychiatric history: Reports: no psych history - Social History Smoking Status: Never smoker Smokeless Tobacco Status: No Alcohol use: Reports: none Drug use: Reports: none Physical Exam - General Limitations: no limitations General appearance: alert, in no apparent distress - Head Head exam: atraumatic, normocephalic, normal inspection - Eye Eye exam: Present: normal appearance, PERRL, EOMI - ENT ENT exam: normal exam, normal oropharynx, mucous membranes moist - Neck Neck exam: Present: normal inspection, full ROM, trachea midline - Chest Chest inspection: Present: normal inspection, symmetric chest wall rise. Absent: tenderness - Respiratory Respiratory exam: Present: normal lung sounds bilaterally. Absent: respiratory distress, prolonged expiratory phase - Cardiovascular Cardiovascular exam: Present: regular rate, normal rhythm, normal heart sounds - Abdominal Exam Abdominal exam: Present: soft, Non-Tender, normal bowel sounds. Absent: tenderness, distention, guarding, rebound, rigidity - Extremities Exam Extremities exam: Present: normal inspection, full ROM, normal capillary refill. Absent: tenderness, pedal edema, joint swelling, calf tenderness - Expanded Lower Extremity Exam Lower leg exam: Absent: Homans' sign Neurovascular/Tendon exam: Present: normal capillary refill. Absent: motor deficit, sensory deficit, tendon deficit, extremity cold to touch, pallor - Back Exam Back exam: Present: normal inspection, full ROM. Absent: tenderness, CVA tenderness (R), CVA tenderness (L), vertebral tenderness - Neurological Exam Neurological exam: Present: alert, oriented X3, CN II-XII intact. Absent: motor sensory deficit - Psychiatric Psychiatric exam: Present: normal affect, normal mood - Skin Skin exam: Present: warm, dry, intact, normal color Course Vital Signs Temperature 99.1 F 04/28/19 14:37 Pulse Rate 84 04/28/19 14:37 Respiratory Rate 16 04/28/19 14:37 Blood Pressure 166/73 04/28/19 14:37 O2 Sat by Pulse Oximetry 97 04/28/19 14:37 Temperature 98.2 F 04/28/19 20:31 Pulse Rate 80 04/28/19 20:31 Respiratory Rate 16 04/28/19 20:31 Blood Pressure 164/92 04/28/19 20:33 O2 Sat by Pulse Oximetry 96 04/28/19 20:31 Oxygen Delivery Oxygen Delivery Room Air Medical Decision Making - [facility] Narrative Medical decision making narrative: The patient is elderly, he has a history of hypertension hyperlipidemia diabetes and prior coronary stents, he describes recurrent palpitations particularly with exertion. He has no history of DVT PE or cancer. He reports a remote traumatic intracerebral hemorrhage. He takes aspirin and Plavix daily. The patient reports he has a headache, he does not describe a sudden onset headache and displays no neurologic symptomatology. Aspirin initially ordered as a precaution but I asked the nurse to hold it until the CT was negative. CT head negative for acute disease. The patient's initial laboratory testing EKG and radiographic studies are nonacute. The patient feels very uncomfortable going home, he is highly concerned about his new onset symptomatology. Based on his age and significant vascular risk factors in association with cardiac symptomatology particularly with exertion I thought it would be appropriate to admit the patient to the hospital. I discussed the case with the hospitalist on-call who has accepted the patient to their care. - Lab Data Lab results reviewed: Yes I reviewed the patient's lab results. Result diagrams: 04/28/19 15:09 04/28/19 15:09 Lab Results 04/28/19 04/28/19 04/28/19 Range/Units 15:09 15: 15:09 WBC 7.2 (4.3-11.1) K/mcL RBC 4.38 (4.19-5.50) M/mcL Hgb 13.8 (12.9-16.9) g/dL Hct 39.5 (37.5-50.1) % MCV 90.2 (83.0-100.0) fL MCH 31.5 (28.0-33.3) pg MCHC 34.9 (31.6-35.5) g/dL RDW 11.9 (11.5-14.5) % Plt Count 207 (140-400) K/mcL MPV 8.4 L (9.4-12.4) fL Immature Gran % 0.3 (0-4) % Seg Neutrophils % 77.6 % Lymphocytes % 7.3 % Monocytes % 14.1 % Eosinophils % 0.4 % Basophils % 0.3 % Neutrophils # 5.6 (1.6-8.9) K/mcL Lymphocytes # 0.5 L (0.6-4.6) K/mcL Monocytes # 1.0 (0.0-1.3) K/mcL Eosinophils # 0.0 (0.0-0.6) K/mcL Basophils # 0.0 (0.0-0.2) K/mcL PT 11.7 (9.4-12.1) Seconds INR 1.0 APTT 28.2 (26.0-36.0) Seconds Sodium 133 L (136-145) mEq/L Potassium 4.1 (3.5-5.1) mEq/L Chloride 100 (98-107) mEq/L Carbon Dioxide 26 (23-29) mEq/L BUN 18 (8-23) mg/dL Creatinine 0.96 (0.70-1.30) mg/dL Est GFR ( Amer) > 60 (> 60) Est GFR (Non-Af Amer) > 60 (> 60) BUN/Creatinine Ratio 19 (6-26) Glucose 170 H (70-105) mg/dL Calculated Osmolality 282 (280-300) Calcium 8.9 (8.6-10.3) mg/dL Total Bilirubin 0.7 (0.3-1.0) mg/dL Direct Bilirubin 0.2 (0.0-0.2) mg/dL Indirect Bilirubin 0.5 (0.0-1.2) mg/dL AST 14 (13-39) Units/L ALT 16 (7-52) Units/L Alkaline Phosphatase 68 (34-104) Units/L Troponin I < 0.03 (< 0.04) ng/mL Serum Total Protein 6.3 L (6.4-8.9) g/dL Albumin 3.9 (3.5-5.7) g/dL Globulin 2.4 (2.4-3.5) g/dL Albumin/Globulin Ratio 1.6 (1.1-2.2) Lipase 5 L (11-82) Units/L - Radiology Data Radiology results reviewed: Yes I reviewed the patient's radiology results.
[2019-04-28 15:34] LABS: Basophils % 0.3 %; Eosinophils % 0.4 %; Hematocrit 39.5 % (37.5-50.1); Hemoglobin 13.8 g/dL (12.9-16.9); Immature Granulocytes % 0.3 % (0-4); Lymphocytes # 0.5 K/mcL (0.6-4.6); Lymphocytes % 7.3 %; Mean Corpuscular HGB Conc 34.9 g/dL (31.6-35.5); Mean Corpuscular Hemoglobin 31.5 pg (28.0-33.3); Mean Corpuscular Volume 90.2 fL (83.0-100.0); Mean Platelet Volume 8.4 fL (9.4-12.4); Monocytes % 14.1 %; Neutrophils # 5.6 K/mcL (1.6-8.9); Platelet Count 207 K/mcL (140-400); Red Blood Count 4.38 M/mcL (4.19-5.50); Red Cell Distribution Width 11.9 % (11.5-14.5); Segmented Neutrophils % 77.6 %; White Blood Count 7.2 K/mcL (4.3-11.1)
[2019-04-28 15:41] LABS: Prothrombin Time 11.7 Seconds (9.4-12.1)
[2019-04-28 15:44] LABS: Activated Partial Thrombo Time 28.2 Seconds (26.0-36.0)
[2019-04-28 15:56] LABS: Alanine Aminotransferase 16 Units/L (7-52); Albumin 3.9 g/dL (3.5-5.7); Albumin/Globulin Ratio 1.6 (1.1-2.2); Alkaline Phosphatase 68 Units/L (34-104); Aspartate Amino Transferase 14 Units/L (13-39); BUN/Creatinine Ratio 19 (6-26); Bilirubin,Direct 0.2 mg/dL (0.0-0.2); Bilirubin,Indirect 0.5 mg/dL (0.0-1.2); Bilirubin,Total 0.7 mg/dL (0.3-1.0); Blood Urea Nitrogen 18 mg/dL (8-23); Calcium 8.9 mg/dL (8.6-10.3); Carbon Dioxide 26 mEq/L (23-29); Chloride 100 mEq/L (98-107); Globulin 2.4 g/dL (2.4-3.5); Glucose 170 mg/dL (70-105); Lipase 5 Units/L (11-82); Osmolality,Calculated 282 (280-300); Potassium 4.1 mEq/L (3.5-5.1); Sodium 133 mEq/L (136-145); Total Protein 6.3 g/dL (6.4-8.9); Troponin I < 0.03 ng/mL (< 0.04); eGFR For African Americans > 60 (> 60); eGFR For Non-African Americans > 60 (> 60)
[2019-04-28] MEDS ORDERED: Aspirin 325 MG TABLET PO ONE (17:14)
[2019-04-28] MEDS ORDERED: Naloxone 0.4 MG/ML INJ IVP PRN (17:20)
[2019-04-28] MEDS ORDERED: MOM Conc 10 ML UD.LIQ PO PRN (17:20)
[2019-04-28] MEDS ORDERED: Ondansetron 4 MG/2 ML VIAL IVP PRN (17:20)
[2019-04-28] MEDS ORDERED: *HR* Promethazine 25 MG/ML VIAL IVP PRN (17:20)
[2019-04-28] MEDS ORDERED: traMADol 50 MG TABLET PO PRN (17:20)
[2019-04-28] MEDS ORDERED: Acetaminophen 325 MG TABLET PO PRN (17:20)
[2019-04-28] MEDS ORDERED: *HR* Dextrose 50 % in Water (Syg) 50 ML SYRINGE IVP PRN (17:24)
[2019-04-28] MEDS ORDERED: Dextrose Gel 15 GM/37.5 ML TUBE PO PRN ×2 (17:24)
[2019-04-28] MEDS ORDERED: D5% in Water 1,000 ML IVC PRN (17:24)
--- NOTE | 2019-04-28 17:42 | Internal Med History&Physical ---
Date of Encounter: 04/28/19 Time of Encounter: 17:27 Internal Medicine - H&P: HPI Admitted From: Home Plans for Post Hospital Care: Home History of present illness: Mr. Musa is a 79 year old male with past medical history of CAD status post mult iple stents placement, hyperlipidemia, diabetes mellitus, hypertension, and intracranial hemorrhage secondary to trauma who presented with severe palpitation associated with lightheadedness and presyncope. Patient was seen at his PCPs office today for the same complaints, PCP called the cardiology Dr. Schwab who recommended to send the patient to the ED for admission. Patient reported a long history of palpitation and he had undergone extensive workup in the past including a recent Holter monitor in January of this year. He also reported extensive cardiac history. He had a cardiac catheterization a few months ago which showed 50% lesions. He currently takes aspirin and Plavix. His palpitation got worse recently, he described his symptoms as episodic, lasting as long as hours, usually resolved by itself. During the episode, patient also reported severe fatigue and dyspnea on exertion. He denies chest pain, cough with sputum production, fever, abdominal pain, nausea/vomiting, or diarrhea. In the ED, patient vital signs was notable for slightly elevated blood pressure, heart rate about 70-90, telemetry showed a sinus rhythm. Labs showed a negative troponin, chest x-ray has no acute abnormalities. Patient is admitted for further evaluation. CODE STATUS discussed with patient and family, he will be full code while in the hospital. Past Med Surg Social Fam HX - Past Medical History Medical history: coronary artery disease, diabetes, hyperlipidemia, hypertension, myocardial infarction Additional medical history: melanoma, nodules to right chest they are monitoring. Psychiatric history: no psych history - Past Surgical History Surgical History: cancer surgery, cataract, coronary bypass (CABG) Additional surgical history: left thumb and chest melanoma ,"Brain surgery". cardiac stent x6 - Social History Smoking Status: Never smoker Smokeless Tobacco Status: No Alcohol use: none Drug use: none - Family History Mother Living Status: Hx Family Cardiac Disorders: Yes Hx Family Endocrine Disorder: Yes Father Living Status: Hx Family Cardiac Disorders: Yes ([place]) Internal Medicine - H&P: Meds Aspirin Enteric Coated [Aspirin EC] 81 mg PO DAILY 03/19/16 [History] Atorvastatin [Lipitor] 40 mg PO HS 03/19/16 [History] Clopidogrel [Plavix] 75 mg PO DAILY 03/19/16 [History] Insulin NPH Hum/Reg Insulin Hm [Novolin 70-30 100 Unit/ml Vial] 8 - 12 unit SQ BID 03/19/16 [History] Isosorbide MONOnitrate [Isosorbide Mononitrate ER] 120 mg PO DAILY 03/19/16 [History] Nitroglycerin [Nitrostat] 0.4 mg SL Q5M PRN 03/19/16 [History] Tamsulosin [Flomax] 0.4 mg PO DAILY 03/19/16 [History] Pantoprazole Sodium [Protonix] 40 mg PO DAILY 06/10/17 [History] Diltiazem CD (24hr) [Cardizem CD] 180 mg PO DAILY 07/29/17 [History] Losartan Potassium [Cozaar] 50 mg PO DAILY 01/06/18 [History] Metoprolol Succinate 50 mg PO DAILY #30 tab.er.24h 01/13/19 [Rx] Allergy/AdvReac Type Severity Reaction Status Date / Time lisinopril AdvReac Cough Verified 07/29/17 12:09 All Systems PM: A 10-system review of systems was performed and is negative for pertinent findings except as documented above in the HPI. Review of systems: REVIEW OF SYSTEMS: CONSTITUTIONAL: No weight loss, fever, chills, weakness or fatigue. HEENT: Eyes: No visual loss, blurred vision, double vision or yellow sclerae. Ears, Nose, Throat: No hearing loss, sneezing, congestion, runny nose or sore throat. SKIN: No rash or itching. CARDIOVASCULAR: see HPI. RESPIRATORY: No shortness of breath, cough or sputum. GASTROINTESTINAL: No anorexia, nausea, vomiting or diarrhea. No abdominal pain or blood. GENITOURINARY: No dysuria, urgency, or frequency. NEUROLOGICAL: No headache, dizziness, syncope, paralysis, ataxia, numbness or tingling in the extremities. No change in bowel or bladder control. MUSCULOSKELETAL: No muscle, back pain, joint pain or stiffness. HEMATOLOGIC: No anemia, bleeding or bruising. LYMPHATICS: No enlarged nodes. No history of splenectomy. PSYCHIATRIC: No history of depression or anxiety. ENDOCRINOLOGIC: No reports of sweating, cold or heat intolerance. No polyuria or polydipsia. - Constitutional Vitals: Temp Pulse Resp BP Pulse Ox 99.1 F 84 16 166/73 97 04/28/19 14:37 04/28/19 14:37 04/28/19 14:37 04/28/19 14:37 04/28/19 14:37 General appearance: Present: A&O X 3 Exam: PHYSICAL EXAMINATION: GENERAL APPEARANCE: The patient is alert, oriented and in no acute distress. HEENT: Head is normocephalic. The sinuses are nontender. Pupils are equal and reactive. The nares are patent. Oropharynx clear without lesions. NECK: Supple without lymphadenopathy. HEART: Regular rate and rhythm. LUNGS: No crackles or wheezes are heard. ABDOMEN: Soft, nontender, nondistended with good bowel sounds heard. Inguinal area is normal. EXTREMITIES: Without cyanosis, clubbing or edema. NEUROLOGICAL: Gross nonfocal. SKIN: Warm and dry without any rash. Internal Med - H&P Results - Labs CBC & Chem 7: 04/28/19 15:09 04/28/19 15:09 Labs: Short CBC 04/28/19 Range/Units 15:09 WBC 7.2 (4.3-11.1) K/mcL Hgb 13.8 (12.9-16.9) g/dL Hct 39.5 (37.5-50.1) % Plt Count 207 (140-400) K/mcL Neutrophils # 5.6 (1.6-8.9) K/mcL BMP 04/28/19 15:09 Sodium 133 L Potassium 4.1 Chloride 100 Carbon Dioxide 26 BUN 18 Creatinine 0.96 Glucose 170 H Calcium 8.9 Cardiac Enzymes 04/28/19 Range/Units 15:09 Troponin I < 0.03 (< 0.04) ng/mL Liver Function 04/28/19 Range/Units 15:09 Total Bilirubin 0.7 (0.3-1.0) mg/dL Direct Bilirubin 0.2 (0.0-0.2) mg/dL AST 14 (13-39) Units/L ALT 16 (7-52) Units/L Alkaline Phosphatase 68 (34-104) Units/L Albumin 3.9 (3.5-5.7) g/dL - Impressions ITS Impressions Chest X-Ray 04/28/19 14:58 IMPRESSION: No evidence of acute cardiopulmonary disease. D/ / Ran Weeks MD / Ran Weeks MD Interpreting Provider: Ran Weeks MD - Assessment and Plan (1) Palpitations Current Visit: Yes Status: Acute Assessment and plan: 79 year old male with CAD and multiple stents placement, long hx of palpitation presented with worsening palpitation associated with lightheadedness, dyspnea, and pre-syncope. Recent Holter in January showed NSR with PVCs and PACs. Recent LHC showed 50% lesion. Currently on asa, plavix, BB, and CCB. we will continue cycling trop, tele monitoring, robert as needed. Labs including TSH, free T4, catecolamine, metanephrine, and HIAA ordered. ECHO ordered. Cardiology consult. (2) History of cerebral hemorrhage Current Visit: No Status: Chronic Assessment and plan: stable, no bleeding. continue asa and plavix. (3) CAD (coronary artery disease) Current Visit: No Status: Chronic Assessment and plan: stable, no chest pain, continue current treatment including asa and plavix. Qualifiers: Coronary Disease-Associated Artery/Lesion type: [place] artery [place] vs. transplanted heart: [place] heart Associated angina: without angina Qualified Code(s): I25.10 - Atherosclerotic heart disease of [place] coronary artery without angina pectoris (4) Diabetes mellitus Current Visit: No Status: Chronic Assessment and plan: Change home long acting insulin to levimer, dose decreased to 9 unit/day. Started on insulin sliding scale. 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 Qualifiers: Hypertension type: essential hypertension Qualified Code(s): I10 - Essential (primary) hypertension (6) DVT prophylaxis Current Visit: Yes Status: Acute Assessment and plan: SCDs. - Time Spent With Patient Total time spent is greater than 50% in coordination of care (as documented) at patient's floor/unit and/or counseling patient: Greater than 35 minutes
[2019-04-28] MEDS ORDERED: Nitroglycerin 0.4 MG TAB.SUBL SL PRN (18:20)
[2019-04-28 18:25] LABS: Troponin I 0.03 ng/mL (< 0.04)
[2019-04-28 18:39] LABS: Thyroid Stimulating Hormone 1.014 mcIU/mL (0.340-5.600)
[2019-04-28] MEDS: Insulin LISPRO 300 UNITS/3 ML VIAL SQ SCH (20:42)
[2019-04-28] MEDS: Insulin DETEMIR 100 UNIT/ML X5UNITS SQ SCH (20:54)
[2019-04-29 02:14] LABS: Basophils % 0.3 %; Eosinophils # 0.1 K/mcL (0.0-0.6); Eosinophils % 1.1 %; Hematocrit 38.6 % (37.5-50.1); Hemoglobin 13.5 g/dL (12.9-16.9); Immature Granulocytes % 0.3 % (0-4); Lymphocytes # 0.8 K/mcL (0.6-4.6); Lymphocytes % 13.4 %; Mean Corpuscular Hemoglobin 31.5 pg (28.0-33.3); Mean Platelet Volume 8.5 fL (9.4-12.4); Monocytes # 0.9 K/mcL (0.0-1.3); Monocytes % 14.6 %; Neutrophils # 4.3 K/mcL (1.6-8.9); Platelet Count 193 K/mcL (140-400); Red Blood Count 4.29 M/mcL (4.19-5.50); Red Cell Distribution Width 11.9 % (11.5-14.5); Segmented Neutrophils % 70.3 %; White Blood Count 6.1 K/mcL (4.3-11.1)
[2019-04-29 02:22] LABS: INR 1.1
[2019-04-29 02:37] LABS: Alanine Aminotransferase 14 Units/L (7-52); Albumin 3.6 g/dL (3.5-5.7); Albumin/Globulin Ratio 1.6 (1.1-2.2); Alkaline Phosphatase 62 Units/L (34-104); Aspartate Amino Transferase 12 Units/L (13-39); BUN/Creatinine Ratio 17 (6-26); Bilirubin,Total 0.6 mg/dL (0.3-1.0); Blood Urea Nitrogen 18 mg/dL (8-23); Calcium 8.5 mg/dL (8.6-10.3); Carbon Dioxide 24 mEq/L (23-29); Chloride 99 mEq/L (98-107); Cholesterol 90 mg/dL (< 200); Globulin 2.2 g/dL (2.4-3.5); Glucose 241 mg/dL (70-105); HDL Cholesterol 30 mg/dL (40-59); LDL Cholesterol,Calculated 38 mg/dL (0-99); Osmolality,Calculated 282 (280-300); Phosphorous 3.1 mg/dL (2.7-4.5); Potassium 3.6 mEq/L (3.5-5.1); Sodium 131 mEq/L (136-145); Total Protein 5.8 g/dL (6.4-8.9); Triglycerides 112 mg/dL (< 150); eGFR For African Americans > 60 (> 60); eGFR For Non-African Americans > 60 (> 60)
[2019-04-29] MEDS ORDERED: Metoprolol XL (24 HR) Succ 50 MG TAB.ER.24H PO SCH (09:00)
[2019-04-29] MEDS: Aspirin Enteric Coated 81 MG Tablet PO SCH (10:05)
[2019-04-29] MEDS: Insulin LISPRO 300 UNITS/3 ML VIAL SQ SCH ×4 (10:06→20:13)
[2019-04-29] MEDS: Isosorbide MONOnitrate (24 HR) 60 MG TAB.ER.24H PO SCH (10:06)
[2019-04-29] MEDS: Diltiazem CD (24hr) 180 MG CAPSULE PO SCH (10:06)
--- NOTE | 2019-04-29 10:30 | Cardiology Consult Note ---
Date of Encounter: 04/29/19 Time of Encounter: 09:30 Assessment and Plan (1) Palpitations Current Visit: Yes Status: Acute Has been seeing Dr. Schwab o/p for palpitations. States papitations and associated dizziness, lightheadedness and dyspnea have increased over the past couple of weeks. 12hr tele reviewed: average HR 75, NSR, no events noted. 24hr Holter 01/2019: 1650 PVCs, 186 paired PVCs, no VT or NSVT. Echo 04/29/19: LVEF 55%, Normal RV structure and function, no wall motion abnormalities Will increase Toprol XL to 75mg QD and order 4 week event monitor to be placed before discharge. Keep scheduled consult with Dr. Stepan Sorensen on 06/05/19. Plan discussed with pt and he is agreeable. Cardiology will sign off, please re-consult as needed. (2) CAD (coronary artery disease) Current Visit: No Status: Chronic Last [facility] 01/13/19: 3v CAD, S/P CABG 2 of 2 patent bypass grafts, previously stented Cx, SVG to OM1 patent. Continue ASA, Plavix, statin, BB and Imdur. Plan as above. Qualifiers: Coronary Disease-Associated Artery/Lesion type: [place] artery [place] vs. transplanted heart: [place] heart Associated angina: without angina Qualified Code(s): I25.10 - Atherosclerotic heart disease of [place] coronary artery without angina pectoris Discussion w patient/family: The assessment and plan as outlined above was discussed with the patient and/or family members who expressed understanding and agreement. All questions were answered. Thank you for involving us in the care of your patient. Please call with any questions. The above assessment and plan will be discussed with Dr. Cordero and I will make changes as necessary. History of Present Illness Consult date: 04/29/19 Consult reason: Palpitations History of present illness: Mr. Musa is a 79 year old male with past medical history of CAD status post multiple stents placement, HLD, diabetes mellitus, hypertension, and intracranial hemorrhage secondary to trauma who presented with severe palpitation associated with lightheadedness and presyncope. Patient was seen at his PCPs office today for the same complaints, PCP called the cardiology Dr. Schwab who recommended to send the patient to the ED for admission. Patient reported a long history of palpitation and he had undergone extensive workup in the past including a recent Holter monitor in January of this year. He also reported extensive cardiac history. He had a cardiac catheterization a few months ago which showed 50% lesions. He currently takes aspirin and Plavix. His palpitation got worse recently, he described his symptoms as episodic, lasting as long as hours, usually resolved by itself. During the episode, patient also reported severe fatigue and dyspnea on exertion. He denies chest pain, cough with sputum production, fever, abdominal pain, nausea/vomiting, or diarrhea. Past Med Surg Social Fam HX - Past Medical History Medical history: coronary artery disease, diabetes, hyperlipidemia, hypertensi on, myocardial infarction Additional medical history: melanoma, nodules to right chest they are monitoring. Psychiatric history: no psych history - Past Surgical History Surgical History: cancer surgery, cataract, coronary bypass (CABG) Additional surgical history: left thumb and chest melanoma ,"Brain surgery". cardiac stent x6 - Social History Smoking Status: Never smoker Smokeless Tobacco Status: No Alcohol use: none Drug use: none - Family History Mother Living Status: Hx Family Cardiac Disorders: Yes Hx Family Endocrine Disorder: Yes Father Age: 50 Living Status: Hx Family Cardiac Disorders: Yes ([place]) Medications and Allergies Aspirin Enteric Coated [Aspirin EC] 81 mg PO DAILY 03/19/16 [History] Atorvastatin [Lipitor] 40 mg PO HS 03/19/16 [History] Clopidogrel [Plavix] 75 mg PO DAILY 03/19/16 [History] Insulin NPH Hum/Reg Insulin Hm [Novolin 70-30 100 Unit/ml Vial] 8 - 12 unit SQ BID 03/19/16 [History] Nitroglycerin [Nitrostat] 0.4 mg SL Q5M PRN 03/19/16 [History] Pantoprazole Sodium [Protonix] 40 mg PO DAILY 06/10/17 [History] Diltiazem CD (24hr) [Cardizem CD] 180 mg PO DAILY 07/29/17 [History] Losartan Potassium [Cozaar] 50 mg PO DAILY 01/06/18 [History] Metoprolol Succinate 50 mg PO DAILY #30 tab.er.24h 01/13/19 [Rx] Isosorbide MONOnitrate [Isosorbide Mononitrate ER] 120 mg PO DAILY 04/28/19 [His tory] Tamsulosin HCl 0.4 mg PO DAILY 04/28/19 [History] Allergy/AdvReac Type Severity Reaction Status Date / Time lisinopril AdvReac Cough Verified 04/28/19 21:17 All Systems Review: The remainder of the systems were reviewed and are negative - Cardiovascular Cardiovascular: as per HPI Physical Examination Vital Signs, Last 4 Hours Temp Pulse Resp BP Pulse Ox 04/29/19 06:53 98.3 F 85 16 176/74 93 General: Conversant, No Apparent Distress HEENT: Atraumatic, Normocephaly, Mucus Membranes Moist Neck: No JVD, Normal carotid pulses Cardiac: Reg Rate and Rhythm, Normal S1 and S2, No Murmur Lungs: Normal Breath Sounds, No Wheeze, Rales, Rhonchi Neuro: Alert and responsive, No focal deficits noted Abdomen: Soft, Non-Tender Skin: No rashes noted on visualized skin Musculoskeletal: No Chest Wall Tenderness Extremities: No Clubbing, No Cyanosis, No Edema, Normal Pulses Results 04/29/19 01:29 04/29/19 01:29 Lab Results 04/28/19 04/28/19 04/28/19 15:09 15:09 15:09 WBC 7.2 Hgb 13.8 Hct 39.5 Plt Count 207 INR 1.0 APTT 28.2 Sodium 133 L Potassium 4.1 Chloride 100 Carbon Dioxide 26 BUN 18 Creatinine 0.96 Glucose 170 H Calcium 8.9 Total Bilirubin 0.7 AST 14 ALT 16 Alkaline Phosphatase 68 Troponin I < 0.03 B-Natriuretic Peptide Lipase 5 L TSH 04/28/19 04/28/19 04/29/19 17:30 20:05 01:29 WBC 6.1 Hgb 13.5 Hct 38.6 Plt Count 193 INR APTT Sodium Potassium Chloride Carbon Dioxide BUN Creatinine Glucose Calcium Total Bilirubin AST ALT Alkaline Phosphatase Troponin I 0.03 0.03 B-Natriuretic Peptide Lipase TSH 1.014 04/29/19 04/29/19 04/29/19 01:29 01:29 01:29 WBC Hgb Hct Plt Count INR 1.1 APTT Sodium 131 L Potassium 3.6 Chloride 99 Carbon Dioxide 24 BUN 18 Creatinine 1.06 Glucose 241 H Calcium 8.5 L Total Bilirubin 0.6 AST 12 L ALT 14 Alkaline Phosphatase 62 Troponin I B-Natriuretic Peptide 87 Lipase TSH - Imaging and Cardiology Echo: report reviewed Cardiac cath: report reviewed Holter: report reviewed Other Results: 12hr tele reviewed: NSR, no events noted. - EKG Interpretation EKG results cardiology: personally reviewed, sinus rhythm Consult Discharge Plan - Plan Referrals: Teetee Cisneros CNP [Primary Care Provider] - (Appointment has been requested.)
--- NOTE | 2019-04-29 10:40 | Internal Med Progress Note ---
Hospitalist Progress Note - Encounter Date of Encounter: 04/29/19 Time of Encounter: 10:37 - Subjective Interval History: Mr. Musa is a 79 year old male with past medical history of CAD status post multiple stents placement, hyperlipidemia, diabetes mellitus, hypertension, and intracranial hemorrhage secondary to trauma who presented with severe palpitat ion associated with lightheadedness and presyncope. Patient was seen at his PCPs office today for the same complaints, PCP called the cardiology Dr. Schwab who recommended to send the patient to the ED for admission. Patient reported a long history of palpitation and he had undergone extensive workup in the past including a recent Holter monitor in January of this year. He also reported extensive cardiac history. He had a cardiac catheterization a few months ago which showed 50% lesions. He currently takes aspirin and Plavix. His palpitation got worse recently, he described his symptoms as episodic, lasting as long as hours, usually resolved by itself. During the episode, patient also reported severe fatigue and dyspnea on exertion. He denies chest pain, cough with sputum production, fever, abdominal pain, nausea/vomiting, or diarrhea. Patient is seen and examined in the room. He reported absence of palpitation overnight. Denies chest pain, shortness of breath, or presyncope. - Exam Vitals: Temp Pulse Resp BP Pulse Ox 98.3 F 85 16 176/74 93 04/29/19 06:53 04/29/19 06:53 04/29/19 06:53 04/29/19 06:53 04/29/19 06:53 Exam: PHYSICAL EXAMINATION: GENERAL APPEARANCE: The patient is alert, oriented and in no acute distress. HEENT: Head is normocephalic. The sinuses are nontender. Pupils are equal and reactive. The nares are patent. Oropharynx clear without lesions. NECK: Supple without lymphadenopathy. HEART: Regular rate and rhythm. LUNGS: No crackles or wheezes are heard. ABDOMEN: Soft, nontender, nondistended with good bowel sounds heard. Inguinal area is normal. EXTREMITIES: Without cyanosis, clubbing or edema. NEUROLOGICAL: Gross nonfocal. SKIN: Warm and dry without any rash. - Assessment and Plan (1) Palpitations Current Visit: Yes Status: Acute Assessment and Plan: 04/28 79 year old male with CAD and multiple stents placement, long hx of palpitation presented with worsening palpitation associated with lightheadedness, dyspnea, and pre-syncope. Recent Holter in January showed NSR with PVCs and PACs. Recent LHC showed 50% lesion. Currently on asa, plavix, BB, and CCB. we will continue cycling trop, tele monitoring, robert as needed. Labs including TSH, free T4, catecolamine, metanephrine, and HIAA ordered. ECHO ordered. Cardiology consult. 04/29 Telemetry recording overnight reviewed, normal sinus rhythm with occasional PVCs and PACs. Troponin was negative. Echo performed this morning showed preserved ejection fraction without obvious structural of abnormalities. Patient denied history of panic attacks/anxiety. he denies consumption of large amount of caffeine or alcohol. Denies history of illicit drug abuse. Cardiology recommended event monitor, follow up as outpatient. Patient will stay overnight to complete 24 urine sample. He will be discharged in the morning. (2) History of cerebral hemorrhage Current Visit: No Status: Chronic Assessment and Plan: stable, no bleeding. continue asa and plavix. (3) CAD (coronary artery disease) Current Visit: No Status: Chronic Assessment and Plan: stable, no chest pain, continue current treatment including asa and plavix. (4) Diabetes mellitus Current Visit: No Status: Chronic Assessment and Plan: Change home long acting insulin to levimer, dose decreased to 10 unit/day. Started on insulin sliding scale. (5) HTN (hypertension) Current Visit: No Status: Chronic Assessment and Plan: resume home meds, continue monitoring BP. (6) DVT prophylaxis Current Visit: Yes Status: Acute Assessment and Plan: SCDs. - Time Spent with Patient Total time spent is greater than 50% in coordination of care (as documented) at patient's floor/unit and/or counseling patient: Greater than 35 minutes Plan of Care Discussed with: patient Internal Medicine: Result - Labs CBC & Chem 7: 04/29/19 01:29 04/29/19 01:29 Labs: Short CBC 04/28/19 04/29/19 Range/Units 15:09 01:29 WBC 7.2 6.1 (4.3-11.1) K/mcL Hgb 13.8 13.5 (12.9-16.9) g/dL Hct 39.5 38.6 (37.5-50.1) % Plt Count 207 193 (140-400) K/mcL Neutrophils # 5.6 4.3 (1.6-8.9) K/mcL BMP 04/28/19 04/29/19 15:09 01:29 Sodium 133 L 131 L Potassium 4.1 3.6 Chloride 100 99 Carbon Dioxide 26 24 BUN 18 18 Creatinine 0.96 1.06 Glucose 170 H 241 H Calcium 8.9 8.5 L Cardiac Enzymes 04/28/19 04/28/19 04/28/19 Range/Units 15:09 17:30 20:05 Troponin I < 0.03 0.03 0.03 (< 0.04) ng/mL Liver Function 04/28/19 04/29/19 Range/Units 15:09 01:29 Total Bilirubin 0.7 0.6 (0.3-1.0) mg/dL Direct Bilirubin 0.2 (0.0-0.2) mg/dL AST 14 12 L (13-39) Units/L ALT 16 14 (7-52) Units/L Alkaline Phosphatase 68 62 (34-104) Units/L Albumin 3.9 3.6 (3.5-5.7) g/dL - ABG Interpretation ABG results: PT/INR, D-dimer PT 12.0 Seconds (9.4-12.1) 04/29/19 01:29 - Impressions Impressions Chest X-Ray 04/28/19 14:58 IMPRESSION: No evidence of acute cardiopulmonary disease. D/ / Ran Weeks MD / Ran Weeks MD Interpreting Provider: Ran Weeks MD Head CT 04/28/19 17:15 IMPRESSION: No acute intracranial abnormality. Status post bilateral craniotomies. D/ / Margarito Zhou MD / Margarito Zhou MD Interpreting Provider: Margarito Zhou MD Echocardiogram 04/29/19 17:22 Impressions: LVEF 55%. Grade I diastolic dysfunction. Normal right ventricular structure and function. Mild tricuspid regurgitation. No pulmonary hypertension. Left Ventricular Wall Motion: Rest Echo Findings All wall segments showed normal motion. Findings: Study Quality * Technically adequate exam. ECG Findings * Normal sinus rhythm. Left Ventricle * LVEF 55%. * Normal LV chamber size, wall thickness and systolic function. * Grade I diastolic dysfunction. * Atypical septal motion consistent with post-operative status. Right Ventricle * Normal right ventricular structure and function. Left Atrium * Normal left atrial size. Right Atrium * Normal right atrial size. Interatrial Septum * Interatrial septum not well evaluated. Aortic Valve * Aortic valve not well visualized. * Mildly calcified aortic valve leaflets. * Trace aortic regurgitation. * No aortic stenosis. Mitral Valve * Normal mitral valve structure. * No mitral stenosis. * Trace mitral regurgitation. Tricuspid Valve * Normal tricuspid valve structure. * No tricuspid stenosis. * Mild tricuspid regurgitation. * Estimated RVSP is 23 mmHg. * Estimated RA pressure is 3 mmHg. * No pulmonary hypertension. Pulmonic Valve * Pulmonic valve is not well visualized. * No pulmonic stenosis. * No pulmonic regurgitation. Aorta * Normally sized aortic root. Pericardium * The pericardium appears normal. IVC * The IVC is not dilated. * > 50% respiratory change Consult Discharge Plan - Plan Referrals: Teetee Cisneros PIECE HAND [Primary Care Provider] - (Appointment has been requested.) _ (3) CAD (coronary artery disease) Qualifiers: Coronary Disease-Associated Artery/Lesion type: [place] artery [place] vs. 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
--- NOTE | 2019-04-29 10:59 | Electrocardiograph Report ---
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
[2019-04-29] MEDS: Insulin DETEMIR 100 UNIT/ML X5UNITS SQ SCH (20:18)
[2019-04-30 06:55] VITALS: BP 152/79
[2019-04-30] MEDS: Isosorbide MONOnitrate (24 HR) 60 MG TAB.ER.24H PO SCH (08:08)
[2019-04-30] MEDS: Aspirin Enteric Coated 81 MG Tablet PO SCH (08:09)
[2019-04-30] MEDS: Diltiazem CD (24hr) 180 MG CAPSULE PO SCH (08:09)
[2019-04-30] MEDS: Insulin LISPRO 300 UNITS/3 ML VIAL SQ SCH (08:10)
--- NOTE | 2019-04-30 08:27 | Discharge Summary ---
- NOTES TO OUTPATIENT PROVIDER Notes to Outpatient Provider: f/u with cardiology as scheduled. f/u with PCP within 2 weeks. Orders not resulted at time of discharge: Pending orders 04/29/19 5-HIAA,Ur [place] or 24hr Routine Catecholamine,Ur [place] or 24hr Routine Metanephrine,Ur Random or 24hr Routine Date of Encounter: 04/30/19 Time of Encounter: 08:23 - Discharge Diagnosis (1) Palpitations Priority: Primary Status: Acute (2) History of cerebral hemorrhage Priority: Secondary Status: Chronic (3) CAD (coronary artery disease) Priority: Secondary Status: Chronic Qualifiers: Coronary Disease-Associated Artery/Lesion type: [place] artery [place] vs. 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 Musa is a 79 year old male with past medical history of CAD status post multiple stents placement, hyperlipidemia, diabetes mellitus, hypertension, and intracranial hemorrhage secondary to trauma who presented with severe palpitation associated with lightheadedness and presyncope. Patient was seen at his PCPs office today for the same complaints, PCP called the cardiology Dr. Schwab who recommended to send the patient to the ED for admission. Patient reported a long history of palpitation and he had undergone extensive workup in the past including a recent Holter monitor in January of this year. He also reported extensive cardiac history. He had a cardiac catheterization a few months ago which showed 50% lesions. He currently takes aspirin and Plavix. His palpitation got worse recently, he described his symptoms as episodic, lasting as long as hours, usually resolved by itself. During the episode, patient also reported severe fatigue and dyspnea on exertion. Patient denies history of anxiety/panic attack, he does not drink large amount of alcohol or caffeine. He denies use of illicit drugs. Serial troponin was negative, EKG showed a normal sinus rhythm. TSH and free T4 are normal. Telemetry tracing was reviewed which showed normal sinus rhythm with occasional PVCs. Echocardiogram was repeated which was unremarkable. Cardiology was consulted, metoprolol dose was increased from 50 to 75 daily, event monitor was ordered. He reported intermittent palpitation while in the hospital, the corresponding telemetry chest and was carefully examined, no tachyarrhythmia/bradycardia/arrhythmia was identified. Urine sample for metanephrine, catecholamine, and HIAA were collected, results are pending. She is discharged home today, he already had an appointment with cardiology, he will also see PCP within 2 weeks. Discharge discussed with: patient Time spent discussing smoking cessation with patient: more than 10 minutes - Time Spent with Patient Total time spent providing and/or coordinating discharge services: Time spent: Greater than 30 minutes - Discharge Medications Prescriptions: New Metoprolol XL (24 HR) Succ [Toprol Xl] 75 mg PO DAILY #30 tab.er.24h Continued Clopidogrel [Plavix] 75 mg PO DAILY Nitroglycerin [Nitrostat] 0.4 mg SL Q5M PRN PRN Reason: Chest Pain Aspirin Enteric Coated [Aspirin EC] 81 mg PO DAILY Insulin NPH Hum/Reg Insulin Hm [Novolin 70-30 100 Unit/ml Vial] 8 - 12 unit SQ BID Atorvastatin [Lipitor] 40 mg PO HS Pantoprazole Sodium [Protonix] 40 mg PO DAILY Diltiazem CD (24hr) [Cardizem CD] 180 mg PO DAILY Losartan Potassium [Cozaar] 50 mg PO DAILY Isosorbide MONOnitrate [Isosorbide Mononitrate ER] 120 mg PO DAILY Tamsulosin HCl 0.4 mg PO DAILY Discontinued Metoprolol Succinate 50 mg PO DAILY #30 tab.er.24h Home Medications: Aspirin Enteric Coated [Aspirin EC] 81 mg PO DAILY 03/19/16 [History] Atorvastatin [Lipitor] 40 mg PO HS 03/19/16 [History] Clopidogrel [Plavix] 75 mg PO DAILY 03/19/16 [History] Insulin NPH Hum/Reg Insulin Hm [Novolin 70-30 100 Unit/ml Vial] 8 - 12 unit SQ BID 03/19/16 [History] Nitroglycerin [Nitrostat] 0.4 mg SL Q5M PRN 03/19/16 [History] Pantoprazole Sodium [Protonix] 40 mg PO DAILY 06/10/17 [History] Diltiazem CD (24hr) [Cardizem CD] 180 mg PO DAILY 07/29/17 [History] Losartan Potassium [Cozaar] 50 mg PO DAILY 01/06/18 [History] Isosorbide MONOnitrate [Isosorbide Mononitrate ER] 120 mg PO DAILY 04/28/19 [History] Tamsulosin HCl 0.4 mg PO DAILY 04/28/19 [History] Metoprolol XL (24 HR) Succ [Toprol Xl] 75 mg PO DAILY #30 tab.er.24h 04/30/19 [Rx] Allergies/Adverse Reactions: Allergy/AdvReac Type Severity Reaction Status Date / Time lisinopril AdvReac Cough Verified 04/28/19 21:17 Date of admission: 04/28/19 17:28 Primary care physician: Teetee Cisneros CNP Consults: 04/28/19 17:43 Consult to Cardiology [CONS] Routine Comment: Consulting Provider: Cardiology M[place] Reason for Consult: palpitation Call Completed: Yes Anticipated date of discharge: 04/30/19 - Constitutional Vitals: Temp Pulse Resp BP Pulse Ox 98.6 F 79 16 152/79 95 04/30/19 06:53 04/30/19 06:53 04/30/19 06:53 04/30/19 06:53 04/30/19 06:53 General appearance: Present: A&O X 3 Exam: PHYSICAL EXAMINATION: GENERAL APPEARANCE: The patient is alert, oriented and in no acute distress. HEENT: Head is normocephalic. The sinuses are nontender. Pupils are equal and reactive. The nares are patent. Oropharynx clear without lesions. NECK: Supple without lymphadenopathy. HEART: Regular rate and rhythm. LUNGS: No crackles or wheezes are heard. ABDOMEN: Soft, nontender, nondistended with good bowel sounds heard. Inguinal area is normal. EXTREMITIES: Without cyanosis, clubbing or edema. NEUROLOGICAL: Gross nonfocal. SKIN: Warm and dry without any rash. - Patient Status Disposition: Home, Self-Care Condition: Fair Functional capacity at discharge: independent ambulation Overall status at discharge: patient is progressing back to baseline - Discharge Instructions Follow Up With: Teetee Cisneros CNP [Primary Care Provider] - (Appointment has been requested.) - Diet and Activity Activity: increase activity as tolerated Diet: diabetic diet, low fat, low cholesterol, low salt diet
[2019-04-30] MEDS ORDERED: Metoprolol XL (24 HR) Succ 50 MG TAB.ER.24H PO SCH (09:00)
[2019-05-02 08:27] LABS: Urine Collection Volume 1910 mL
[2019-05-04 08:44] LABS: Urine Creatinine mg/d 1394 mg/d (800-2100)
== END 2019-04-30 09:47 | disposition home or self-care (01) ==
LOC: EMEROOARM 14:25 → 3BNU 14:25
PROVIDERS: ADMIT Internal Medicine; ATTEND Internal Medicine

== ENCOUNTER 2020-02-26 13:06 | Observation (INO) ==
[2020-02-26 13:49] LABS: Bilirubin,Urine Negative (Negative); Blood,Urine Negative (Negative); Clarity,Urine Clear (Clear); Color,Urine Light-Yellow (Yellow); Glucose,Urine (UA) 30 mg/dL (Normal); Ketones,Urine Negative (Negative); Leukocyte Esterase,Urine Negative (Negative); Nitrite,Urine Negative (Negative); PH,Urine 6.5 pH Units (5.0-8.0); Protein,Urine Trace mg/dL (Neg-Trace); Specific Gravity,Urine 1.014 (1.010-1.025); Urobilinogen,Urine Normal (Normal)
[2020-02-26 14:00] LABS: Basophils % 0.6 %; Eosinophils # 0.2 K/mcL (0.0-0.6); Eosinophils % 2.9 %; Hematocrit 37.6 % (37.5-50.1); Hemoglobin 13.5 g/dL (12.9-16.9); Immature Granulocytes % 0.4 % (0-4); Lymphocytes # 0.9 K/mcL (0.6-4.6); Mean Corpuscular HGB Conc 35.9 g/dL (31.6-35.5); Mean Corpuscular Hemoglobin 31.8 pg (28.0-33.3); Mean Corpuscular Volume 88.7 fL (83.0-100.0); Mean Platelet Volume 8.2 fL (9.4-12.4); Monocytes # 0.8 K/mcL (0.0-1.3); Monocytes % 11.4 %; Neutrophils # 4.9 K/mcL (1.6-8.9); Platelet Count 221 K/mcL (140-400); Red Blood Count 4.24 M/mcL (4.19-5.50); Red Cell Distribution Width 11.9 % (11.5-14.5); Segmented Neutrophils % 71.7 %; White Blood Count 6.9 K/mcL (4.3-11.1)
[2020-02-26 14:12] LABS: Activated Partial Thrombo Time 30.1 Seconds (26.0-36.0)
[2020-02-26 14:13] LABS: Prothrombin Time 11.9 Seconds (9.4-12.1)
[2020-02-26 15:01] LABS: Sodium, Urine 141.4 mEq/L
[2020-02-26 15:15] LABS: Alanine Aminotransferase 16 Units/L (7-52); Albumin 3.5 g/dL (3.5-5.7); Albumin/Globulin Ratio 1.7 (1.1-2.2); Alkaline Phosphatase 64 Units/L (34-104); Aspartate Amino Transferase 13 Units/L (13-39); BUN/Creatinine Ratio 21 (6-26); Bilirubin,Direct 0.1 mg/dL (0.0-0.2); Bilirubin,Indirect 0.4 mg/dL (0.0-1.0); Bilirubin,Total 0.5 mg/dL (0.3-1.0); Blood Urea Nitrogen 21 mg/dL (8-23); Calcium 8.2 mg/dL (8.6-10.3); Carbon Dioxide 26 mEq/L (23-29); Chloride 98 mEq/L (98-107); Globulin 2.1 g/dL (2.4-3.5); Glucose 178 mg/dL (70-105); Osmolality,Calculated 275 (280-300); Potassium 4.2 mEq/L (3.5-5.1); Sodium 129 mEq/L (136-145); Total Protein 5.6 g/dL (6.4-8.9); Troponin I < 0.03 ng/mL (< 0.04); eGFR For African Americans > 60 (> 60); eGFR For Non-African Americans > 60 (> 60)
[2020-02-26] MEDS ORDERED: Nitroglycerin 0.4 MG TAB.SUBL SL PRN (15:33)
[2020-02-26] MEDS ORDERED: Nitroglycerin 0.4 MG TAB.SUBL SL ONE (15:37)
[2020-02-26] MEDS ORDERED: Naloxone 0.4 MG/ML INJ IVP PRN (15:38)
[2020-02-26] MEDS ORDERED: *HR* HYDROcodone/Acet 5/325 mg TABLET PO PRN (15:38)
[2020-02-26] MEDS ORDERED: Dextrose Gel 15 GM/37.5 ML TUBE PO PRN ×2 (15:41)
[2020-02-26] MEDS ORDERED: D5% in Water 1,000 ML IVC PRN (15:41)
[2020-02-26] MEDS ORDERED: *HR* Dextrose 50 % in Water (Vial) 50 ML VIAL IVP PRN (15:41)
[2020-02-26] MEDS ORDERED: *HR* Labetalol 20 MG/4 ML SYRINGE IVP PRN (15:43)
[2020-02-26] MEDS ORDERED: Metoprolol XL (24 HR) Succ 50 MG TAB.ER.24H PO SCH (15:45)
[2020-02-26] MEDS: Insulin LISPRO 300 UNITS/3 ML VIAL SQ SCH (16:57)
[2020-02-26] MEDS: Aspirin Enteric Coated 81 MG Tablet PO SCH (16:58)
[2020-02-26] MEDS ORDERED: 0.9 % Sodium Chloride 500 ML IVC SCH (17:00)
[2020-02-26] MEDS ORDERED: Insulin DETEMIR 100 UNIT/ML X5UNITS SQ SCH (21:00)
[2020-02-26] MEDS ORDERED: carvediloL 25 MG TABLET PO SCH (21:00)
[2020-02-26] MEDS: *HR* Heparin 5,000 UNIT/ML VIAL SQ SCH (21:17)
[2020-02-26] MEDS ORDERED: Insulin LISPRO 300 UNITS/3 ML VIAL SQ SCH (21:30)
[2020-02-27 02:59] LABS: Basophils % 0.4 %; Eosinophils # 0.3 K/mcL (0.0-0.6); Eosinophils % 3.7 %; Hematocrit 38.3 % (37.5-50.1); Immature Granulocytes % 0.4 % (0-4); Lymphocytes # 1.2 K/mcL (0.6-4.6); Lymphocytes % 15.4 %; Mean Corpuscular HGB Conc 33.9 g/dL (31.6-35.5); Mean Corpuscular Hemoglobin 30.2 pg (28.0-33.3); Mean Corpuscular Volume 89.1 fL (83.0-100.0); Mean Platelet Volume 8.4 fL (9.4-12.4); Monocytes # 0.9 K/mcL (0.0-1.3); Monocytes % 11.6 %; Neutrophils # 5.2 K/mcL (1.6-8.9); Platelet Count 234 K/mcL (140-400); Red Cell Distribution Width 11.9 % (11.5-14.5); Segmented Neutrophils % 68.5 %; White Blood Count 7.6 K/mcL (4.3-11.1)
[2020-02-27 03:18] LABS: BUN/Creatinine Ratio 20 (6-26); Blood Urea Nitrogen 20 mg/dL (8-23); Calcium 8.6 mg/dL (8.6-10.3); Carbon Dioxide 26 mEq/L (23-29); Chloride 99 mEq/L (98-107); Glucose 164 mg/dL (70-105); Magnesium 1.8 mg/dL (1.6-2.6); Osmolality,Calculated 280 (280-300); Phosphorous 3.8 mg/dL (2.7-4.5); Potassium 3.8 mEq/L (3.5-5.1); Sodium 132 mEq/L (136-145); eGFR For African Americans > 60 (> 60); eGFR For Non-African Americans > 60 (> 60)
[2020-02-27] MEDS: *HR* Heparin 5,000 UNIT/ML VIAL SQ SCH (05:22)
[2020-02-27 06:54] VITALS: BP 186/75
[2020-02-27] MEDS: Insulin LISPRO 300 UNITS/3 ML VIAL SQ SCH (07:55)
[2020-02-27] MEDS: Aspirin Enteric Coated 81 MG Tablet PO SCH (08:29)
[2020-02-27] MEDS ORDERED: carvediloL 25 MG TABLET PO SCH (09:00)
[2020-02-27] MEDS ORDERED: Isosorbide MONOnitrate (24 HR) 60 MG TAB.ER.24H PO SCH (09:00)
[2020-02-27] MEDS ORDERED: DilTIAZem CD (24hr) 180 MG CAP.ER.24H PO SCH (09:00)
== END 2020-02-27 10:53 | disposition home or self-care (01) ==
LOC: 3BNU 13:06 → EMEROOARM 13:06 → SUATTDRO 15:35 → 3BNU 16:04
PROVIDERS: ADMIT Internal Medicine; ATTEND Family Medicine

== ENCOUNTER 2021-07-05 12:37 | Observation (INO) ==
[2021-07-05 13:56] LABS: Basophils % 0.3 %; Eosinophils # 0.1 K/mcL (0.0-0.6); Eosinophils % 1.9 %; Hematocrit 34.8 % (37.5-50.1); Hemoglobin 12.4 g/dL (12.9-16.9); Immature Granulocytes % 0.5 % (0-4); Lymphocytes # 0.8 K/mcL (0.6-4.6); Lymphocytes % 10.1 %; Mean Corpuscular HGB Conc 35.6 g/dL (31.6-35.5); Mean Corpuscular Hemoglobin 32.7 pg (28.0-33.3); Mean Corpuscular Volume 91.8 fL (83.0-100.0); Mean Platelet Volume 8.2 fL (9.4-12.4); Monocytes # 0.8 K/mcL (0.0-1.3); Monocytes % 9.9 %; Neutrophils # 5.9 K/mcL (1.6-8.9); Platelet Count 240 K/mcL (140-400); Red Blood Count 3.79 M/mcL (4.19-5.50); Red Cell Distribution Width 11.6 % (11.5-14.5); Segmented Neutrophils % 77.3 %; White Blood Count 7.6 K/mcL (4.3-11.1)
[2021-07-05 14:06] LABS: Prothrombin Time 11.1 Seconds (9.4-12.1)
[2021-07-05 14:08] LABS: Activated Partial Thrombo Time 27.7 Seconds (26.0-36.0)
[2021-07-05 14:19] LABS: BUN/Creatinine Ratio 25 (6-26); Blood Urea Nitrogen 23 mg/dL (8-23); Calcium 8.8 mg/dL (8.6-10.3); Carbon Dioxide 25 mEq/L (23-29); Chloride 102 mEq/L (98-107); Glucose 125 mg/dL (70-105); Osmolality,Calculated 283 (280-300); Potassium 4.6 mEq/L (3.5-5.1); Sodium 134 mEq/L (136-145); Troponin I < 0.03 ng/mL (< 0.04); eGFR For African Americans > 60 (> 60); eGFR For Non-African Americans > 60 (> 60)
[2021-07-05] MEDS ORDERED: MOM Conc 10 ML UD.LIQ PO PRN (16:19)
[2021-07-05] MEDS ORDERED: Ondansetron ODT 4 MG TAB.RAPDIS SL PRN (16:19)
[2021-07-05] MEDS ORDERED: Mag Hydrox/Al Hydrox/Simeth 30 ML UDC PO PRN (16:19)
[2021-07-05] MEDS ORDERED: *HR* Promethazine 25 MG/ML VIAL IM PRN (16:19)
[2021-07-05] MEDS ORDERED: Naloxone 0.4 MG/ML INJ IVP PRN (16:19)
[2021-07-05] MEDS ORDERED: Perflutren Lipid Microsphere 1.3 ML in 0.9 % Sodium Chloride 8.7 ML IVP PRN (16:24)
[2021-07-05] MEDS ORDERED: Dextrose Gel 15 GM/37.5 ML TUBE PO PRN ×2 (16:31)
[2021-07-05] MEDS ORDERED: D5% in Water 1,000 ML IVC PRN (16:31)
[2021-07-05] MEDS ORDERED: *HR* Dextrose 50 % in Water (Syg) 50 ML SYRINGE IVP PRN (16:31)
[2021-07-05] MEDS ORDERED: Nitroglycerin 0.4 MG TAB.SUBL SL PRN (17:35)
[2021-07-05] MEDS: Insulin LISPRO 300 UNITS/3 ML VIAL SUBQ SCH ×2 (18:26→22:10)
[2021-07-05 20:15] LABS: Estimated Average Glucose 169 mg/dl; Hemoglobin A1C 7.5 %
[2021-07-06 05:21] LABS: Hematocrit 38.9 % (37.5-50.1); Hemoglobin 13.9 g/dL (12.9-16.9); Mean Corpuscular HGB Conc 35.7 g/dL (31.6-35.5); Mean Corpuscular Hemoglobin 32.6 pg (28.0-33.3); Mean Corpuscular Volume 91.1 fL (83.0-100.0); Mean Platelet Volume 8.3 fL (9.4-12.4); Platelet Count 273 K/mcL (140-400); Red Blood Count 4.27 M/mcL (4.19-5.50); Red Cell Distribution Width 11.6 % (11.5-14.5); White Blood Count 9.2 K/mcL (4.3-11.1)
[2021-07-06 05:39] LABS: BUN/Creatinine Ratio 26 (6-26); Blood Urea Nitrogen 22 mg/dL (8-23); Calcium 8.8 mg/dL (8.6-10.3); Carbon Dioxide 23 mEq/L (23-29); Chloride 101 mEq/L (98-107); Glucose 134 mg/dL (70-105); Osmolality,Calculated 283 (280-300); Potassium 3.8 mEq/L (3.5-5.1); Sodium 134 mEq/L (136-145); eGFR For African Americans > 60 (> 60); eGFR For Non-African Americans > 60 (> 60)
[2021-07-06] MEDS: *HR* Enoxaparin 40 MG/0.4 ML SYRINGE SQ SCH (06:15)
[2021-07-06] MEDS: Insulin LISPRO 300 UNITS/3 ML VIAL SUBQ SCH ×4 (11:35→22:43)
[2021-07-06] MEDS: Ranolazine 500 MG TAB.ER.12H PO SCH (20:17)
[2021-07-06] MEDS ORDERED: carvediloL 25 MG TABLET PO SCH (21:00)
[2021-07-07 04:29] VITALS: O2SAT 97
[2021-07-07] MEDS: *HR* Enoxaparin 40 MG/0.4 ML SYRINGE SQ SCH (05:38)
[2021-07-07] MEDS ORDERED: Regadenoson 0.4 MG/5 ML SYRINGE IVP ONE (06:28)
[2021-07-07] MEDS: Insulin LISPRO 300 UNITS/3 ML VIAL SUBQ SCH ×2 (07:20→11:47)
[2021-07-07] MEDS ORDERED: carvediloL 25 MG TABLET PO SCH (09:00)
[2021-07-07] MEDS ORDERED: Finasteride 5 MG TABLET PO SCH (09:00)
[2021-07-07] MEDS ORDERED: Aspirin Enteric Coated 81 MG Tablet PO SCH (09:00)
[2021-07-07] MEDS ORDERED: DilTIAZem CD (24hr) 180 MG CAP.ER.24H PO SCH (09:00)
[2021-07-07] MEDS: Ranolazine 500 MG TAB.ER.12H PO SCH (09:03)
[2021-07-07 11:30] VITALS: BP 136/67; PULSE 70; TEMP 98.2
== END 2021-07-07 14:02 | disposition home or self-care (01) ==
LOC: EMEROOARM 12:37 → 3ANU 12:37 → SUATTDRO 15:33 → 3ANU 16:36
PROVIDERS: ADMIT Internal Medicine; ATTEND Internal Medicine